=== PATIENT | male | born 1985 | race Caucasian/White ===

== ENCOUNTER 2024-01-07 08:47 | Outpatient (AMB) | payer MEDICAID, SELFPAY ==
--- NOTE | 2024-01-07 08:50 | A.OFFVIS_ITS ---
Intake Visit Reasons: circumcision consult Intake Note: Patient is present for CIRCUMCISION CONSULT Urology Medication:NONE Antibiotic Allergy:NONE Blood Thinner:NONE Buyer Required: No Allergies aspirin Allergy (Mild, Verified 01/07/24 08:58) Swelling lactose Allergy (Mild, Verified 01/07/24 08:58) Unknown penicillin G Allergy (Mild, Verified 01/07/24 08:58) RASH Medication List - Last Reconciled 01/07/24 by Mayank York MD atorvastatin 20 mg PO DAILY blood sugar diagnostic (FreeStyle Lite Strips) As directed empagliflozin (Jardiance) 25 mg PO DAILY lancets (FreeStyle Lancets) As directed lisinopril-hydrochlorothiazide 20-12.5 mg 1 tab PO DAILY metformin 1,000 mg PO BID sitagliptin phosphate (Januvia) 100 mg PO QAM HPI Comments Details: 01/07/2024--Luis is a 38-year-old gentleman past medical history PTSD, diabetes, here for evaluation due to recurrent balanitis. He was treated by his primary with an antifungal cream which helped. On exam foreskin with mild erythema able to be retracted without difficulty. 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 He states he is also interested in vasectomy. He states that he is and has 1 child. Vasectomy procedure was discussed at length with the patient. He was informed that vasectomy is a safe, permanent, and effective form of control but there are risks involved. It may involve risk of hematoma, procedure failure which is rare, sperm granuloma which may cause mild pain, and congestion which may cause sense of pressure and generally resolves after several weeks. Also discussed is the reported post vasectomy pain syndrome with chronic testicular pain which is uncommon <5% The patient was advised that it is necessary to use other types of control methods for > 12 weeks and until we send semen for analysis to make sure there is no more sperm in the semen. [facility] Medical History (Updated 01/07/24 @ 09:47 by Mayank York MD) Psychiatric illness Post traumatic stress disorder (PTSD) Injury Hypercholesteremia HTN (hypertension) Diabetes Class 1 obesity in adult Review of Systems Const All systems reviewed & are unremarkable except as noted in HPI and below Reports no additional complaints Eyes Reports no additional complaints ENT Reports no additional complaints Card Reports no additional complaints Resp Reports no additional complaints GI Reports no additional complaints Reports as per HPI Musc Reports no additional complaints Skin/Breast Reports system reviewed and no additional complaints, except as documented Neuro Reports no additional complaints Psych Reports no additional complaints Endo Reports no additional complaints Tim/Lymph Reports no additional complaints Aller/Immun Reports no additional complaints Physical Exam Const General: healthy appearing, no acute distress and well developed Orientation/consciousness: patient oriented x3 HEENT Head: Yes normocephalic and Yes atraumatic Eyes Conjunctivae: conjunctivae normal Neck Neck: Yes normal visual inspection Chest Chest palpation & inspection: normal inspection of the chest Resp Effort & Inspection: normal respiratory effort Cardio Rate: regular rate GI Inspection: Yes normal to inspection Palpation (GI): Soft to palpation Penis: uncircumcised Scrotum: scrotum normal Skin General skin exam: no rashes or lesions noted Neuro General: patient oriented x3 Extrem General: No pedal edema Psych Appearance: grossly normal Affect: normal affect Results AMB Urinalysis, Automated UA Leukoctes 0 Leif/uL Last Edit by MIGEL Harman on 01/07/24 09:11 UA Nitrite Negative Last Edit by MIGEL Harman on 01/07/24 09:11 UA Urobilinogen 0.2 mg/dL Last Edit by MIGEL Harman on 01/07/24 09:1 1 UA Protein 0 mg/dL Last Edit by MIGEL Harman on 01/07/24 09:11 UA pH 6.0 Last Edit by MIGEL Harman on 01/07/24 09:11 UA Blood 0 Jose Guadalupe/uL Last Edit by MIGEL Harman on 01/07/24 09:11 UA Specific [employer] 1.015 Last Edit by MIGEL Harman on 01/07/24 09: 11 UA Ketone Negative Last Edit by MIGEL Harman on 01/07/24 09:11 UA Bilirubin 0 mg/dL Last Edit by MIGEL Harman on 01/07/24 09:11 UA Glucose 1000 mg/dL Last Edit by MIGEL Harman on 01/07/24 09:11 Results Reviewed Results Reviewed: Laboratory Last Values Urine pH (Auto) 6.0 01/07/24 09:11 Specific [employer] (Auto) 1.015 01/07/24 09:11 Urine Protein (Auto) 0 mg/dL 01/07/24 09:11 Glucose (UA)(Auto) 1000 mg/dL 01/07/24 09:11 Urine Ketones (Auto) Negative 01/07/24 09:11 Urine Blood (Auto) 0 Jose Guadalupe/uL 01/07/24 09:11 Urine Nitrite (Auto) Negative 01/07/24 09:11 Urine Bilirubin (Auto) 0 mg/dL 01/07/24 09:11 Urine Urobilinogen (Auto) 0.2 mg/dL 01/07/24 09:11 Leukocyte Esterase (Auto) 0 Leif/uL 01/07/24 09:11 Assessment & Plan Assessment & Plan (1) Encounter for circumcision: Code(s): Z41.2 - Encounter for routine and ritual male circumcision Category: Medical (2) Diabetes: Code(s): E11.9 - Type 2 diabetes mellitus without complications Category: Medical (3) Balanitis: Code(s): N48.1 - Balanitis Category: Medical (4) Encounter for vasectomy counseling: Code(s): Z30.09 - Encounter for other general counseling and advice on contraception Category: Medical (5) Anxiety about health: Code(s): R45.89 - Other symptoms and signs involving emotional state Category: Medical Plan Plan circumcision and vasectomy as outpatient procedure. Preop labs listed below. Orders: Orders AMB Urinalysis Automated Today Z13.9 - Encounter for screening, unspecified Hemoglobin A1c Today E11.9 - Type 2 diabetes mellitus without complications, Z30.09 - Encounter for other general counseling and advice on contraception, Z41.2 - Encounter for routine and ritual male circumcision Glucose Fasting Today E11.9 - Type 2 diabetes mellitus without complications, Z30.09 - Encounter for other general counseling and advice on contraception, Z41.2 - Encounter for routine and ritual male circumcision Basic Metabolic Panel Fasting Today E11.9 - Type 2 diabetes mellitus without complications, Z30.09 - Encounter for other general counseling and advice on contraception, Z41.2 - Encounter for routine and ritual male circumcision Patient Instructions: The patient had an opportunity to ask questions regarding treatment plan. The patient expressed understanding and agreement with the above treatment plan. The patient is aware they should contact our office by phone for worsening of their current condition or the appearance of new symptoms. Compliance is encouraged with any medications and followup testing that is ordered. It is a privilege to be allowed the opportunity to participate in the urologic care of your patient. If you have any questions or concerns regarding treatment for the above conditions please do not hesitate to contact me. The office teleph one contact is [phone]. This note is constructed in part using voice recognition software. While every effort has been made to ensure accuracy geophysical prospecting surveyor errors may have been included. Yours sincerely, Mayank York MD Coding Level of Care Code New Pt Level 4 (98272) Diagnoses Encounter for circumcision Z41.2 Diabetes E11.9 Balanitis N48.1 Encounter for vasectomy counseling Z30.09 Anxiety about health R45.89
== END 2024-01-07 09:57 | disposition home or self-care (01) ==
PROVIDERS: PCP Student in an Organized Health Care Education/Training Program; Visit Provider Urology
DX: Z41.2 Encounter for routine and ritual male circumcision (principal); E11.9 Type 2 diabetes mellitus without complications; N48.1 Balanitis; Z30.09 Encounter for other general counseling and advice on contraception; R45.89 Other symptoms and signs involving emotional state; Z13.9 Encounter for screening, unspecified
CPT/HCPCS: 99204

== ENCOUNTER → 2024-01-07 08:47 | Outpatient (BNVA) | payer MEDICAID, SELFPAY | PROVIDERS: PCP Student in an Organized Health Care Education/Training Program; Visit Provider Urology | DX: Z30.09 Encounter for other general counseling and advice on contraception (principal); N48.1 Balanitis; E11.9 Type 2 diabetes mellitus without complications; R45.89 Other symptoms and signs involving emotional state | CPT/HCPCS: 81003; 99202 ==

== ENCOUNTER 2024-02-29 09:26 | Outpatient (REF) | payer MEDICAID, SELFPAY ==
--- OUTSIDE RECORDS SUMMARY | 2024-02-29 10:25 | XMS_ITS | Continuity of Care Document ---
Author Organization [place] - [facility], SATYA Smith PT Address [address] [place] [address] Assessment Encounter Date Assessment Date Assessment LastModified by Organization Details LastModified Time 02/14/2024 02/14/2024 Assessment: Pt lacks glute/hip strength, increased hip drop with dynamic running and jumping. Unable to complete single leg squat w/o UE support. Plan: Continue PT 2x/week for jumping, strengthening and stabilization program. [email or web address] Not available 02/17/2024 18:08:24 Plan of Treatment Reminders Order Date Submit Date Provider Last Modified By Organization Details Last Modified Time Details Appointments PT FOLLOW-U P 2024 04:00P M Damkelechiana Migueldge, BARREL MARKER Not available Not available Not available RECHECK 15 2024 01:00P M Bhanu Peter PA-C Not available Not available Not available PT FOLLOW-U P 2024 02:30P M Damieana Fudge, BARREL MARKER Not available Not available Not available PT FOLLOW-U P 2024 05:00P M Damieana Fudge, BARREL MARKER Not available Not available Not available PT FOLLOW-U P 2024 05:00P M Damieana Fudge, BARREL MARKER Not available Not available Not available PT FOLLOW-U P 2024 05:30P M Damieana Fudge, BARREL MARKER Not available Not available Not available PT FOLLOW-U P 2024 05:30P M Damieana Fudge, BARREL MARKER Not available Not available Not available PT ANY 30 2024 06:00P M Benedict Sainz DPT Not available Not available Not available PT FOLLOW-U P 2024 04:00P M Efren Riveradge, BARREL MARKER Not available Not available Not available PT FOLLOW-U P 2024 06:00P M Efren Riveradge, BARREL MARKER Not available Not available Not available PT FOLLOW-U P 2024 06:00P M Efren Fudge, BARREL MARKER Not available Not available Not available Lab None recorded . Referral None recorded . Procedures None recorded . Surgeries None recorded . Imaging None recorded . Medication Orders None recorded . Patient TargetsNo targets recorded. Patient InstructionsNo instructions recorded. Reason for Referral None Reported. Procedures Surgical History Date Name Laterality Status Provider Name and Address Organization Details Recorded Time 4 86058 Therapeutic Exercise (1:1) completed Efren Hinojosa, BARREL MARKER [address], [place], [address], [facility] 06/11/2023 05:36:49 4 89018 Therapeutic Exercise (1:1) completed Efren Hinojosa PTA [address], [place], [address], [facility] 06/07/2023 09:11:33 4 58060: Manual therapy completed Efren Hinojosa PTA [address], [place], [address], [facility] 06/07/2023 09:11:33 4 50043 Therapeutic Exercise (1:1) completed Benedict Sainz DPT [address], [place], [address], [facility] 05/31/2023 09:34:16 4 08331: Manual therapy completed Benedict Sainz DPT [address], [place], [address], [facility] 05/31/2023 09:34:16 4 18645 Therapeutic Exercise (1:1) completed Benedict Sainz DPT [address], [place], [address], [facility] 05/29/2023 14:47:53 4 76081: Manual therapy completed DORI FergusonT [address], [place], [address], [facility] 05/29/2023 14:47:49 4 98533 Therapeutic Exercise (1:1) completed Efren Hinojosa, BARREL MARKER [address], [place], [address], [facility] 05/24/2023 13:24:59 4 47458: Manual therapy completed Efren Hinjoosa BARREL MARKER [address], [place], [address], [facility] 05/24/2023 13:24:59 4 99024 Therapeutic Exercise (1:1) completed Efren Hinojosa BARREL MARKER [address], [place], [address], [facility] 05/24/2023 10:24:36 4 60361: Manual therapy completed Efren Hinojosa BARREL MARKER [address], [place], [address], [facility] 05/24/2023 10:24:36 4 09140 Therapeutic Exercise (1:1) completed Benedict Sainz DPT [address], [place], [address], [facility] 05/17/2023 16:31:18 4 95579: Manual therapy completed DORI FergusonT [address], [place], [address], [facility] 05/17/2023 16:31:10 4 95890 Therapeutic Exercise (1:1) completed DORI FergusonT [address], [place], [address], [facility] 05/16/2023 18:59:28 4 31285: Manual therapy completed DORI FergusonT [address], [place], [address], [facility] 05/16/2023 18:59:25 4 76577 Therapeutic Exercise (1:1) completed DORI FergusonT [address], [place], [address], [facility] 05/15/2023 18:44:31 4 25830 Therapeutic Exercise (1:1) completed Efren Hinojosa, BARREL MARKER [address], [place], [address], [facility] 05/10/2023 13:12:17 4 48591: Manual therapy completed Efren Hinojosa, BARREL MARKER [address], [place], [address], [facility] 05/10/2023 13:12:17 4 06471 Therapeutic Exercise (1:1) completed Efren Hinojosa, BARREL MARKER [address], [place], [address], [facility] 05/09/2023 07:18:26 4 27710: Manual therapy completed Efren Hinojosa, BARREL MARKER [address], [place], [address], [facility] 05/09/2023 07:18:26 4 61951 Therapeutic Exercise (1:1) completed Efren Hinojosa, BARREL MARKER [address], [place], [address], [facility] 05/06/2023 15:27:07 4 91631: Manual therapy completed Efren Hinojosa, BARREL MARKER [address], [place], [address], [facility] 05/06/2023 15:27:07 4 43032 Therapeutic Exercise (1:1) completed Hongshin Alistair, DPT [address], [place], [address], [facility] 05/01/2023 14:39:13 4 02165: Manual therapy completed Benedict Sainz DPT [address], [place], [address], [facility] 05/01/2023 14:39:13 4 46660 Therapeutic Exercise (1:1) completed Efren Hinojosa, BARREL MARKER [address], [place], [address], [facility] 04/26/2023 01:40:07 4 35774: Manual therapy completed Efren Hinojosa, BARREL MARKER [address], [place], [address], [facility] 04/26/2023 01:41:24 Imaging Results None recorded. Procedure Notes None recorded. Medical Equipment None Reported. Allergies Allergen ID Allergen Name Allergen Category Reaction Reaction Severity Criticality Documentation Date Start Date Code Code System Note Provider Name and Address Organization Details Recorded Time 561572 aspirin medicatio n Not available Not available Not available 05/22/2023 1191 RxNorm VJ BAZAN [facility] 4 13:09:04 805183 lactose food,medi cation Not available Not available Not available 05/22/2023 6211 RxNorm VJ BAZAN [facility] 4 13:09:13 159778 Medicinal product containin g penicilli n and acting as antibacte rial agent (product) medicatio n Not available Not available Not available 05/22/2023 88955 05 SNOMED VJ BAZAN [facility] 4 13:09:27 Medications Name Sig Start Date Stop Date Status Note LastModified by Organization Details LastModified Time atorvastatin 20 mg tablet TAKE 1 TABLET BY MOUTH DAILY active Not Available Not Available Not Available lisinopril 20 mg-hydrochlo rothiazide 12.5 mg tablet TAKE 1 TABLET BY MOUTH DAILY active Not Available Not Available Not Available diclofenac ER 100 mg tablet,exten ded release 24 hr TAKE 1 TABLET BY MOUTH EVERY DAY active Not Available Not Available No t Available FreeStyle Lancets 28 gauge USE DIRECTED DAILY active Not Available Not Available No t Available tramadol 50 mg tablet TAKE 1 TABLET BY MOUTH 4 TIMES A DAY NEEDED FOR PAIN DO NOT DRIVE WHILE ON active Not Available Not Available No t Available ketorolac 10 mg tablet TAKE 1 TABLET BY MOUTH THREE TIMES DAILY FOR 5 DAYS active Not Available Not Available N ot Available metformin 1,000 mg tablet TAKE 1 TABLET BY MOUTH TWICE DAILY WITH A MEAL active Not Available Not Available No t Available hydroxyzine HCl 25 mg tablet TAKE 1 TABLET BY MOUTH THREE TIMES DAILY NEEDED FOR SLEEP OR ANXIETY active Not Available Not Available N ot Available clotrimazole 1 % topical cream APPLY TOPICALLY TO THE AFFECTED AREA TWICE DAILY FOR 14 DAYS active Not Available Not Available No t Available oxycodone 5 mg tablet TAKE 1 TABLET BY MOUTH EVERY 4 TO 6 [address] NOT DRIVE WHILE TAKING active Not Available Not Available No t Available enoxaparin 40 mg/0.4 mL subcutaneous syringe DIRECTED INJECT 1 SYRINGE SUBCUTANEOU SLY DAILY FOR 14 DAYS DISPENSE 14 SYRINGES active Not Available Not Available No t Available Januvia 100 mg tablet TAKE 1 TABLET BY MOUTH EVERY MORNING active Not Available Not Available No t Available FreeStyle Lite Strips USE DIRECTED DAILY active Not Available Not Available No t Available melatonin 5 mg tablet TAKE 2 TABLETS BY MOUTH EVERY NIGHT AT BEDTIME active Not Available Not Available No t Available oxycodone HCl-oxycodon e-ASA 1 every 4 - 6 hours as needed DO NOT DRIVE WHILE ON THIS MEDICATION 2023 active Statu s: 'Curr ent'; Not Available Not Available Not Available Enoxaparin Sodium as directed 1 inj subq qd dispense #4 .4ml syringes 2023 active Statu s: 'Curr ent'; Not Available Not Available Not Available Jardiance 25 mg tablet TAKE 1 TABLET BY MOUTH DAILY active Not Available Not Available Not Available Synjardy 5 mg-1,000 mg tablet TAKE 1 TABLET BY MOUTH TWO TIMES A DAY WITH A MEAL active Not Available Not Available Not Available Vitals None Recorded Social History None recorded. Functional Status None recorded. Mental Status None recorded. Family History Nothing Reported. Medical History Condition Response Allergies/Hayfever N Coronary Artery Disease N Anxiety/Depression N Emphysema N Thyroid Problems N COPD N Pacemaker N Kidney/Bladder Problems N Anemia N Vascular Disease N Gastrointestinal Disease N Heart Attack ([place]) N Diabetes Y Autoimmune disease N Bleeding Disorder N Orthotics N Arthritis N Seizures/Epilepsy N Blood Clot N AIDS/HIV N Congestive Heart Failure (CHF) N Acid Reflux (GERD) N Cancer N Stroke N Asthma N Peripheral Vascular Disease N Sleep Apnea N Hepatitis N Heart Disease N Rheumatoid Arthritis N Arrhythmia N Pulmonary Embolism N Fibromyalgia N Hypertension Y Osteoporosis N Past Encounters Encounter ID Performer Location Encounter Start Date Encounter Closed Date Diagnosis/Indication Diagnosis SNOMED-CT Code Diagnosis ICD10 Code Diagnosis Note [id number] Benedict Sainz DPT [facility] [address] [place] [address] 01/14/2024 16:01:06 01/14/2024 17:00:41 Partial tear, knee, anterior cruciate ligament 884172605 S83.511A [id number] Benedict Sainz DPT [facility] [address] [place] [address] 01/16/2024 16:02:03 01/16/2024 17:41:05 Partial tear, knee, anterior cruciate ligament [id number] S83.511A [id number] Benedict Sainz DPT [facility] [address] [place] [address] 01/22/2024 09:57:34 01/22/2024 10:48:44 Partial tear, knee, anterior cruciate ligament [id number] S83.511A [id number] Benedict Sainz DPT [facility] [address] [place] [address] 01/24/2024 15:30:54 01/24/2024 16:15:49 Partial tear, knee, anterior cruciate ligament [id number] S83.511A [id number] Oni Stovall, PT [facility] [address] [place] [address] 01/30/2024 15:55:06 01/30/2024 17:02:35 Partial tear, knee, anterior cruciate ligament [id number] S83.511A [id number] Harvey Urrutia MD [facility] [address] [place] [address] 01/31/2024 13:17:10 02/21/2024 13:55:48 Complete tear, knee, anterior cruciate ligament [id number] S83.511D [id number] Oni Stovall, PT [facility] [address] [place] [address] 02/01/2024 15:22:40 02/01/2024 16:15:40 Partial tear, knee, anterior cruciate ligament [id number] S83.511A [id number] Oni Stovall, PT [facility] [address] [place] [address] 02/07/2024 11:26:12 02/07/2024 12:23:40 Partial tear, knee, anterior cruciate ligament [id number] S83.511A [id number] Oni Stovall, PT [facility] [address] [place] [address] 02/14/2024 16:56:41 02/14/2024 17:25:50 Partial tear, knee, anterior cruciate ligament [id number] S83.511A Health Concerns Section Related Observation LastModified by Organization Detai ls LastModified Time None Recorded Concern Status LastModified by Organization Details LastModified Time None Recorded Payers None recorded. Notes Date Note Type Note Provider Name and Address Organization Details Recorded Time 02/14/2024 text/html Patient reports no pain at rest, has been doing exercises at home but still feels weak in R leg. Efren Hinojosa, BARREL MARKER [address], [place], [address], [facility] 02/17/2024 18:09:41
--- OUTSIDE RECORDS SUMMARY | 2024-02-29 10:26 | XMS_ITS | Continuity of Care Document ---
Author Organization [facility], Luis PT Address [address] [place] [address] Assessment Encounter Date Assessment Date Assessment LastModified by Organization Details LastModified Time 02/07/2024 02/07/2024 Assessment: Pt lacks glute/hip strength, increased hip drop with dynamic running and jumping. Plan: Continue PT 2x/week for jumping, strengthening and stabilization program. [email or web address] Not available 02/07/2024 18:48:43 Plan of Treatment Reminders Order Date Submit Date Provider Last Modified By Organization Details Last Modified Time Details Appointments PT FOLLOW-U P 2024 04:00P M Damieana Fudge, CARTON LETTERING MACHINE OPERATOR Not available Not available Not available RECHECK 15 2024 01:00P M Bhanu Peter PA-C Not available Not available Not available PT FOLLOW-U P 2024 02:30P M Damieana Fudge, CARTON LETTERING MACHINE OPERATOR Not available Not available Not available PT FOLLOW-U P 2024 05:00P M Damieana Fudge, CARTON LETTERING MACHINE OPERATOR Not available Not available Not available PT FOLLOW-U P 2024 05:00P M Damieana Fudge, CARTON LETTERING MACHINE OPERATOR Not available Not available Not available PT FOLLOW-U P 2024 05:30P M Damieana Fudge, CARTON LETTERING MACHINE OPERATOR Not available Not available Not available PT FOLLOW-U P 2024 05:30P M Damieana Fudge, CARTON LETTERING MACHINE OPERATOR Not available Not available Not available PT ANY 30 2024 06:00P M Benedict Sainz DPT Not available Not available Not available PT FOLLOW-U P 2024 04:00P M Damieana Fudge, CARTON LETTERING MACHINE OPERATOR Not available Not available Not available PT FOLLOW-U P 2024 06:00P M Efren Riveradge, CARTON LETTERING MACHINE OPERATOR Not available Not available Not available PT FOLLOW-U P 2024 06:00P M Efren Riveradge, CARTON LETTERING MACHINE OPERATOR Not available Not available Not available Lab None recorded . Referral None recorded . Procedures None recorded . Surgeries None recorded . Imaging None recorded . Medication Orders None recorded . Patient TargetsNo targets recorded. Patient InstructionsNo instructions recorded. Reason for Referral None Reported. Procedures Surgical History Date Name Laterality Status Provider Name and Address Organization Details Recorded Time 4 32614 Therapeutic Exercise (1:1) completed Efren Hinojosa, CARTON LETTERING MACHINE OPERATOR [address], [place], [address], [facility] 06/11/2023 05:36:49 4 78908 Therapeutic Exercise (1:1) completed Efren Hinojosa, CARTON LETTERING MACHINE OPERATOR [address], [place], [address], [facility] 06/07/2023 09:11:33 4 02867: Manual therapy completed Efren Hinojosa, CARTON LETTERING MACHINE OPERATOR [address], [place], [address], [facility] 06/07/2023 09:11:33 4 68055 Therapeutic Exercise (1:1) completed DORI FergusonT [address], [place], [address], [facility] 05/31/2023 09:34:16 4 66979: Manual therapy completed Benedict Sainz DPT [address], [place], [address], [facility] 05/31/2023 09:34:16 4 89609 Therapeutic Exercise (1:1) completed DORI FergusonT [address], [place], [address], [facility] 05/29/2023 14:47:53 4 76159: Manual therapy completed DORI FergusonT [address], [place], [address], [facility] 05/29/2023 14:47:49 4 79872 Therapeutic Exercise (1:1) completed Efren Hinojosa, CARTON LETTERING MACHINE OPERATOR [address], [place], [address], [facility] 05/24/2023 13:24:59 4 80923: Manual therapy completed Efren Hinojosa, CARTON LETTERING MACHINE OPERATOR [address], [place], [address], [facility] 05/24/2023 13:24:59 4 21603 Therapeutic Exercise (1:1) completed Efren Hinojosa, CARTON LETTERING MACHINE OPERATOR [address], [place], [address], [facility] 05/24/2023 10:24:36 4 39089: Manual therapy completed Efren Hinojosa, CARTON LETTERING MACHINE OPERATOR [address], [place], [address], [facility] 05/24/2023 10:24:36 4 59194 Therapeutic Exercise (1:1) completed DORI FergusonT [address], [place], [address], [facility] 05/17/2023 16:31:18 4 01524: Manual therapy completed DORI FergusonT [address], [place], [address], [facility] 05/17/2023 16:31:10 4 85821 Therapeutic Exercise (1:1) completed DORI FergusonT [address], [place], [address], [facility] 05/16/2023 18:59:28 4 37988: Manual therapy completed DORI FergusonT [address], [place], [address], [facility] 05/16/2023 18:59:25 4 58916 Therapeutic Exercise (1:1) completed Benedict Sainz DPT [address], [place], [address], [facility] 05/15/2023 18:44:31 4 96162 Therapeutic Exercise (1:1) completed Efren Hinojosa, CARTON LETTERING MACHINE OPERATOR [address], [place], [address], [facility] 05/10/2023 13:12:17 4 82295: Manual therapy completed Efren Hinojosa, CARTON LETTERING MACHINE OPERATOR [address], [place], [address], [facility] 05/10/2023 13:12:17 4 15018 Therapeutic Exercise (1:1) completed Efren Hinojosa, CARTON LETTERING MACHINE OPERATOR [address], [place], [address], [facility] 05/09/2023 07:18:26 4 41818: Manual therapy completed Efren Hinojosa, CARTON LETTERING MACHINE OPERATOR [address], [place], [address], [facility] 05/09/2023 07:18:26 4 71147 Therapeutic Exercise (1:1) completed Efren Hinojosa, CARTON LETTERING MACHINE OPERATOR [address], [place], [address], [facility] 05/06/2023 15:27:07 4 74017: Manual therapy completed Efren Hinojosa, CARTON LETTERING MACHINE OPERATOR [address], [place], [address], [facility] 05/06/2023 15:27:07 4 69921 Therapeutic Exercise (1:1) completed Benedict Sainz DPT [address], [place], [address], [facility] 05/01/2023 14:39:13 4 29086: Manual therapy completed Benedict Sainz DPT [address], [place], [address], [facility] 05/01/2023 14:39:13 4 51347 Therapeutic Exercise (1:1) completed Efren Hinojosa, CARTON LETTERING MACHINE OPERATOR [address], [place], [address], [facility] 04/26/2023 01:40:07 4 86482: Manual therapy completed Efren Hinojosa, CARTON LETTERING MACHINE OPERATOR [address], [place], [address], [facility] 04/26/2023 01:41:24 Imaging Results None recorded. Procedure Notes None recorded. Medical Equipment None Reported. Allergies Allergen ID Allergen Name Allergen Category Reaction Reaction Severity Criticality Documentation Date Start Date Code Code System Note Provider Name and Address Organization Details Recorded Time 505620 aspirin medicatio n Not available Not available Not available 05/22/2023 1191 RxNorm VJ BAZAN [facility] 4 13:09:04 588636 lactose food,medi cation Not available Not available Not available 05/22/2023 6211 RxNorm VJ BAZAN [facility] 4 13:09:13 612575 Medicinal product containin g penicilli n and acting as antibacte rial agent (product) medicatio n Not available Not available Not available 05/22/2023 43604 05 SNOMED VJ BENI [facility] 4 13:09:27 Medications Name Sig Start [...] Thyroid Problems N COPD N Pacemaker N Anemia N Kidney/Bladder Problems N Vascular Disease N Heart Attack ([place]) N Gastrointestinal Disease N Diabetes Y Autoimmune disease N Bleeding [...] SNOMED-CT Code Diagnosis ICD10 Code Diagnosis Note Oni Stovall, PT [facility] [address] [place] [address] 01/08/2024 14:58:47 01/08/2024 16:03:23 Partial tear, knee, anterior cruciate ligament [id number] S83.511A [id number] Benedict Sainz DPT [facility] [address] [place] [address] 01/14/2024 16:01:06 01/14/2024 17:00:41 Partial tear, knee, anterior cruciate ligament 784784188 S83.511A [id number] Benedict Sainz DPT [facility] [address] [place] [address] 01/16/2024 16:02:03 01/16/2024 17:41:05 Partial tear, knee, anterior cruciate ligament 376254468 S83.511A [id number] Benedict Sainz DPT [facility] [address] [place] [address] 01/22/2024 09:57:34 01/22/2024 10:48:44 Partial tear, knee, anterior cruciate ligament 409105934 S83.511A [id number] Benedict Sainz DPT [facility] [address] [place] [address] 01/24/2024 15:30:54 01/24/2024 16:15:49 Partial tear, knee, anterior cruciate ligament 120926409 S83.511A [id number] Oni Stovall, PT [facility] [address] [place] [address] 01/30/2024 15:55:06 01/30/2024 17:02:35 Partial tear, knee, anterior cruciate ligament 562622912 S83.511A [id number] MD Luis Alegria [address] floor [address] [place] [address] 01/31/2024 13:17:10 02/21/2024 13:55:48 Complete tear, knee, anterior cruciate ligament 644151141 S83.511D [id number] Oni Stovall, PT [facility] [address] [place] [address] 02/01/2024 15:22:40 02/01/2024 16:15:40 Partial tear, knee, anterior cruciate ligament 673302107 S83.511A [id number] LAK[facility] [address] [place] [address] 02/07/2024 11:26:12 02/07/2024 12:23:40 Partial tear, knee, anterior cruciate ligament 108489595 S83.511A Health Concerns Section Related Observation LastModified by Organization Detai ls LastModified Time None Recorded Concern Status LastModified by Organization Details LastModified Time None Recorded Payers Encounter Date Sequence Insurance Name Policy Number Policy Cee Covered Member ID Cee Member ID Guarantor Name 02/07/2024 [employer] [facility] Luis Caal Notes Date Note Type Note Provider Name and Address Organization Details Recorded Time 02/07/2024 text/html Patient reports no pain at rest, doing well. Efren Hinojosa, CARTON LETTERING MACHINE OPERATOR [address], [place], [address], [facility] 02/07/2024 18:49:09
--- OUTSIDE RECORDS SUMMARY | 2024-02-29 10:26 | XMS_ITS | Continuity of Care Document ---
Author Organization [facility] Address [address] [place] [address] Assessment Encounter Date Assessment Date Assessment LastModified by Organization Details LastModified Time 01/22/2024 01/22/2024 Assessment: Reviewed exercises with proper body mechanics for the gym. Pt continues to demonstrate asymmetry strength in quad and hip muscles. Plan: Continue PT 2x/week for jumping, strengthening and stabilization program. [email or web address] Not available 01/22/2024 12:51:00 Plan of Treatment Reminders Order Date Submit Date Provider Last Modified By Organization Details Last Modified Time Details Appointments PT FOLLOW-U P 2024 04:00P M Damieana Fudge, SEASONAL SALES ASSOCIATE Not available Not available Not available RECHECK 15 2024 01:00P M Bhanu Peter PA-C Not available Not available Not available PT FOLLOW-U P 2024 02:30P M Damieana Fudge, SEASONAL SALES ASSOCIATE Not available Not available Not available PT FOLLOW-U P 2024 05:00P M Damieana Fudge, SEASONAL SALES ASSOCIATE Not available Not available Not available PT FOLLOW-U P 2024 05:00P M Damieana Fudge, SEASONAL SALES ASSOCIATE Not available Not available Not available PT FOLLOW-U P 2024 05:30P M Damieana Fudge, SEASONAL SALES ASSOCIATE Not available Not available Not available PT FOLLOW-U P 2024 05:30P M Damieana Fudge, SEASONAL SALES ASSOCIATE Not available Not available Not available PT ANY 30 2024 06:00P M DORI FergusonT Not available Not available Not available PT FOLLOW-U P 2024 04:00P M Damieana Fudge, SEASONAL SALES ASSOCIATE Not available Not available Not available PT FOLLOW-U P 2024 06:00P M Efren Riveradge, SEASONAL SALES ASSOCIATE Not available Not available Not available PT FOLLOW-U P 2024 06:00P M Efren Riveradge, SEASONAL SALES ASSOCIATE Not available Not available Not available Lab None recorded . Referral None recorded . Procedures None recorded . Surgeries None recorded . Imaging None recorded . Medication Orders None recorded . Patient TargetsNo targets recorded. Patient InstructionsNo instructions recorded. Reason for Referral None Reported. Procedures Surgical History Date Name Laterality Status Provider Name and Address Organization Details Recorded Time 4 98209 Therapeutic Exercise (1:1) completed Efren Hinojosa, SEASONAL SALES ASSOCIATE [address], [place], [address], [facility] 06/11/2023 05:36:49 4 01392 Therapeutic Exercise (1:1) completed Efren Hinojosa, SEASONAL SALES ASSOCIATE [address], [place], [address], [facility] 06/07/2023 09:11:33 4 31163: Manual therapy completed Efren Hinojosa, SEASONAL SALES ASSOCIATE [address], [place], [address], [facility] 06/07/2023 09:11:33 4 76200 Therapeutic Exercise (1:1) completed Benedict Sainz DPT [address], [place], [address], [facility] 05/31/2023 09:34:16 4 77135: Manual therapy completed DORI FergusonT [address], [place], [address], [facility] 05/31/2023 09:34:16 4 02012 Therapeutic Exercise (1:1) completed DORI FergusonT [address], [place], [address], [facility] 05/29/2023 14:47:53 4 41569: Manual therapy completed DORI FergusonT [address], [place], [address], [facility] 05/29/2023 14:47:49 4 44514 Therapeutic Exercise (1:1) completed Efren Hinojosa, SEASONAL SALES ASSOCIATE [address], [place], [address], [facility] 05/24/2023 13:24:59 4 37448: Manual therapy completed Efren Hinojosa, SEASONAL SALES ASSOCIATE [address], [place], [address], [facility] 05/24/2023 13:24:59 4 28749 Therapeutic Exercise (1:1) completed Efren Hinojosa, SEASONAL SALES ASSOCIATE [address], [place], [address], [facility] 05/24/2023 10:24:36 4 14551: Manual therapy completed Efren Hinojosa, SEASONAL SALES ASSOCIATE [address], [place], [address], [facility] 05/24/2023 10:24:36 4 37581 Therapeutic Exercise (1:1) completed DORI FergusonT [address], [place], [address], [facility] 05/17/2023 16:31:18 4 53428: Manual therapy completed DORI FergusonT [address], [place], [address], [facility] 05/17/2023 16:31:10 4 39759 Therapeutic Exercise (1:1) completed DORI FergusonT [address], [place], [address], [facility] 05/16/2023 18:59:28 4 74332: Manual therapy completed DORI FergusonT [address], [place], [address], [facility] 05/16/2023 18:59:25 4 03813 Therapeutic Exercise (1:1) completed Benedict Sainz DPT [address], [place], [address], [facility] 05/15/2023 18:44:31 4 74604 Therapeutic Exercise (1:1) completed Efren Hinojosa, SEASONAL SALES ASSOCIATE [address], [place], [address], [facility] 05/10/2023 13:12:17 4 31029: Manual therapy completed Efren Hinojosa, SEASONAL SALES ASSOCIATE [address], [place], [address], [facility] 05/10/2023 13:12:17 4 59169 Therapeutic Exercise (1:1) completed Efren Hinojosa, SEASONAL SALES ASSOCIATE [address], [place], [address], [facility] 05/09/2023 07:18:26 4 43590: Manual therapy completed Efren Hinojosa, SEASONAL SALES ASSOCIATE [address], [place], [address], [facility] 05/09/2023 07:18:26 4 69324 Therapeutic Exercise (1:1) completed Efren Hinojosa, SEASONAL SALES ASSOCIATE [address], [place], [address], [facility] 05/06/2023 15:27:07 4 25055: Manual therapy completed Efren Hinojosa, SEASONAL SALES ASSOCIATE [address], [place], [address], [facility] 05/06/2023 15:27:07 4 50664 Therapeutic Exercise (1:1) completed Benedict Sainz DPT [address], [place], [address], [facility] 05/01/2023 14:39:13 4 37706: Manual therapy completed Benedict Sainz DPT [address], [place], [address], [facility] 05/01/2023 14:39:13 4 75733 Therapeutic Exercise (1:1) completed Efren Hinojosa, SEASONAL SALES ASSOCIATE [address], [place], [address], [facility] 04/26/2023 01:40:07 4 87376: Manual therapy completed Erfen Hinojosa, SEASONAL SALES ASSOCIATE [address], [place], [address], [facility] 04/26/2023 01:41:24 Imaging Results None recorded. Procedure Notes None recorded. Medical Equipment None Reported. Allergies Allergen ID Allergen Name Allergen Category Reaction Reaction Severity Criticality Documentation Date Start Date Code Code System Note Provider Name and Address Organization Details Recorded Time 879116 aspirin medicatio n Not available Not available Not available 05/22/2023 1191 RxNorm VJ BAZAN [facility] 4 13:09:04 103831 lactose food,medi cation Not available Not available Not available 05/22/2023 6211 RxNorm VJ BAZAN [facility] 4 13:09:13 343050 Medicinal product containin g penicilli n and acting as antibacte rial agent (product) medicatio n Not available Not available Not available 05/22/2023 61505 05 SNOMED VJ BAZAN [facility] 4 13:09:27 Medications Name Sig Start [...] History Nothing Reported. Medical History Condition Response Coronary Artery Disease N Anxiety/Depression N Emphysema N COPD N Pacemaker N Vascular Disease N Gastrointestinal Disease N Autoimmune disease N Orthotics N Arthritis N Blood Clot N Acid Reflux (GERD) N Cancer N Stroke N Rheumatoid Arthritis N Arrhythmia N Fibromyalgia N Allergies/Hayfever N Thyroid Problems N Kidney/Bladder Problems N Anemia N Heart Attack ([place]) N Diabetes Y Bleeding Disorder N Seizures/Epilepsy N AIDS/HIV N Congestive Heart Failure (CHF) N Asthma N Peripheral Vascular Disease N Sleep Apnea N Hepatitis N Heart Disease N Pulmonary Embolism N Hypertension Y Osteoporosis N Past Encounters Encounter ID Performer Location Encounter Start Date Encounter Closed Date Diagnosis/Indication Diagnosis SNOMED-CT Code Diagnosis ICD10 Code Diagnosis Note [id number] Benedict Sainz DPT [facility] [address] [place] [address] 12/24/2023 15:24:27 12/24/2023 16:02:58 Partial tear, knee, anterior cruciate ligament 222368251 S83.511A [id number] Benedict Sainz DPT [facility] [address] [place] [address] 12/27/2023 14:57:15 12/27/2023 15:51:28 Partial tear, knee, anterior cruciate ligament 552328645 S83.511A [id number] Benedict Sainz DPT [facility] [address] [place] [address] 01/01/2024 15:56:48 01/01/2024 16:42:05 Partial tear, knee, anterior cruciate ligament 289622602 S83.511A [id number] Benedict Sainz DPT [facility] [address] [place] [address] 01/03/2024 16:39:18 01/03/2024 17:28:40 Partial tear, knee, anterior cruciate ligament 225956711 S83.511A [id number] Oni Stovall, PT [facility] [address] [place] [address] 01/08/2024 14:58:47 01/08/2024 16:03:23 Partial tear, knee, anterior cruciate ligament 130278741 S83.511A [id number] Benedict Sainz DPT [facility] [address] [place] [address] 01/14/2024 16:01:06 01/14/2024 17:00:41 Partial tear, knee, anterior cruciate ligament 754853150 S83.511A [id number] Benedict Sainz DPT [facility] [address] [place] [address] 01/16/2024 16:02:03 01/16/2024 17:41:05 Partial tear, knee, anterior cruciate ligament 658584625 S83.511A [id number] [facility] [address] [place] [address] 01/22/2024 09:57:34 01/22/2024 10:48:44 Partial tear, knee, anterior cruciate ligament 552006969 S83.511A Health Concerns Section Related Observation LastModified by Organization Detai ls LastModified Time None Recorded Concern Status LastModified by Organization Details LastModified Time None Recorded Payers None recorded. Notes Date Note Type Note Provider Name and Address Organization Details Recorded Time 01/22/2024 text/html Pt reports he go es to the gym for strengthening exercises.Pains 0/10 at rest. Benedict Sainz DPT [address], [place], [address], [facility] 01/22/2024 12:52:45
--- OUTSIDE RECORDS SUMMARY | 2024-02-29 10:27 | XMS_ITS | Continuity of Care Document ---
Author Organization [place] - [facility], [facility] PT Address [address] [place] [address] Assessment Encounter Date Assessment Date Assessment LastModified by Organization Details LastModified Time 12/20/2023 12/20/2023 Assessment: Pt demonstrates gradual improving LE strength and SL jumping and running but quick fatigues after exercises. Denies increased pain or instability at the end of the session. Px noted in L LE. Plan: Continue PT 2x/week for jumping, strengthening and stabilization program. Recheck with MD on 12/20/23. [email or web address] Not available 12/23/2023 13:30:13 Plan of Treatment Reminders Order Date Submit Date Provider Last Modified By Organization Details Last Modified Time Details Appointments PT FOLLOW-U P 2024 04:00P M Efren Paredese, CUSTOM SHOP WORKER Not available Not available Not available RECHECK 15 2024 01:00P M Bhanu Peter PA-C Not available Not available Not available PT FOLLOW-U P 2024 02:30P M Dammartha Fudge, CUSTOM SHOP WORKER Not available Not available Not available PT FOLLOW-U P 2024 05:00P M Damieana Fudge, CUSTOM SHOP WORKER Not available Not available Not available PT FOLLOW-U P 2024 05:00P M Damkelechiana Fudge, CUSTOM SHOP WORKER Not available Not available Not available PT FOLLOW-U P 2024 05:30P M Damieana Fudge, CUSTOM SHOP WORKER Not available Not available Not available PT FOLLOW-U P 2024 05:30P M Damkelechiana Fudge, CUSTOM SHOP WORKER Not available Not available Not available PT ANY 30 2024 06:00P M Hongshin Alistair, DPT Not available Not available Not available PT FOLLOW-U P 2024 04:00P M Efren Riverasimrandaria, CUSTOM SHOP WORKER Not available Not available Not available PT FOLLOW-U P 2024 06:00P M Efren Riveradge, CUSTOM SHOP WORKER Not available Not available Not available PT FOLLOW-U P 2024 06:00P M Efren Riveradge, CUSTOM SHOP WORKER Not available Not available Not available Lab None recorded . Referral None recorded . Procedures None recorded . Surgeries None recorded . Imaging None recorded . Medication Orders None recorded . Patient TargetsNo targets recorded. Patient InstructionsNo instructions recorded. Reason for Referral None Reported. Procedures Surgical History Date Name Laterality Status Provider Name and Address Organization Details Recorded Time 4 84412 Therapeutic Exercise (1:1) completed Efren Hinojosa, CUSTOM SHOP WORKER [address], [place], [address], [facility] 06/11/2023 05:36:49 4 40404 Therapeutic Exercise (1:1) completed Efren Hinojosa, CUSTOM SHOP WORKER [address], [place], [address], [facility] 06/07/2023 09:11:33 4 84786: Manual therapy completed Efren Hinojosa, CUSTOM SHOP WORKER [address], [place], [address], [facility] 06/07/2023 09:11:33 4 81969 Therapeutic Exercise (1:1) completed Benedict Sainz DPT [address], [place], [address], [facility] 05/31/2023 09:34:16 4 78174: Manual therapy completed DORI FergusonT [address], [place], [address], [facility] 05/31/2023 09:34:16 4 90179 Therapeutic Exercise (1:1) completed DORI FergusonT [address], [place], [address], [facility] 05/29/2023 14:47:53 4 26331: Manual therapy completed Benedict Sainz DPT [address], [place], [address], [facility] 05/29/2023 14:47:49 4 21267 Therapeutic Exercise (1:1) completed Efren Hinojosa CUSTOM SHOP WORKER [address], [place], [address], [facility] 05/24/2023 13:24:59 4 27562: Manual therapy completed Efren Hinojosa CUSTOM SHOP WORKER [address], [place], [address], [facility] 05/24/2023 13:24:59 4 61373 Therapeutic Exercise (1:1) completed Efren Hinojosa CUSTOM SHOP WORKER [address], [place], [address], [facility] 05/24/2023 10:24:36 4 75418: Manual therapy completed Efren Hinojosa PTA [address], [place], [address], [facility] 05/24/2023 10:24:36 4 36077 Therapeutic Exercise (1:1) completed Benedict Sainz DPT [address], [place], [address], [facility] 05/17/2023 16:31:18 4 80255: Manual therapy completed Benedict Sainz DPT [address], [place], [address], [facility] 05/17/2023 16:31:10 4 68748 Therapeutic Exercise (1:1) completed Benedict Sainz DPT [address], [place], [address], [facility] 05/16/2023 18:59:28 4 92142: Manual therapy completed DORI FergusonT [address], [place], [address], [facility] 05/16/2023 18:59:25 4 83171 Therapeutic Exercise (1:1) completed DORI FergusonT [address], [place], [address], [facility] 05/15/2023 18:44:31 4 11257 Therapeutic Exercise (1:1) completed Efren Hinojosa, CUSTOM SHOP WORKER [address], [place], [address], [facility] 05/10/2023 13:12:17 4 51273: Manual therapy completed Efren Hinojosa, CUSTOM SHOP WORKER [address], [place], [address], [facility] 05/10/2023 13:12:17 4 35153 Therapeutic Exercise (1:1) completed Efren Hinojosa, CUSTOM SHOP WORKER [address], [place], [address], [facility] 05/09/2023 07:18:26 4 52716: Manual therapy completed Efren Hinojosa, CUSTOM SHOP WORKER [address], [place], [address], [facility] 05/09/2023 07:18:26 4 23388 Therapeutic Exercise (1:1) completed Efren Hinojosa, CUSTOM SHOP WORKER [address], [place], [address], [facility] 05/06/2023 15:27:07 4 35893: Manual therapy completed Efren Hinojosa, CUSTOM SHOP WORKER [address], [place], [address], [facility] 05/06/2023 15:27:07 4 96847 Therapeutic Exercise (1:1) completed Benedict Sainz, DPT [address], [place], [address], [facility] 05/01/2023 14:39:13 4 63006: Manual therapy completed Benedict Sainz DPT [address], [place], [address], [facility] 05/01/2023 14:39:13 4 58410 Therapeutic Exercise (1:1) completed Efren Hinojosa, CUSTOM SHOP WORKER [address], [place], [address], [facility] 04/26/2023 01:40:07 4 72298: Manual therapy completed Efren Hinojosa, CUSTOM SHOP WORKER [address], [place], [address], [facility] 04/26/2023 01:41:24 Imaging Results None recorded. Procedure Notes None recorded. Medical Equipment None Reported. Allergies Allergen ID Allergen Name Allergen Category Reaction Reaction Severity Criticality Documentation Date Start Date Code Code System Note Provider Name and Address Organization Details Recorded Time 377764 aspirin medicatio n Not available Not available Not available 05/22/2023 1191 RxNorm VJ ARMASDEN [facility] 4 13:09:04 165116 lactose food,medi cation Not available Not available Not available 05/22/2023 6211 RxNorm VJ BAZAN [facility] 4 13:09:13 211882 Medicinal product containin g penicilli n and acting as antibacte rial agent (product) medicatio n Not available Not available Not available 05/22/2023 96389 05 SNOMED VJ BENI [facility] 4 13:09:27 Medications Name Sig Start [...] Not Available Not Available Not Available Vitals Date Recorded Body height Body mass index (BMI) Body weight Provider Name and Address Organization Details Last Updated DateTime 12/20/2023 167.64 cm 30.7 kg/m2 08674.55 g VJ BENI [facility] 12/20/2023 15:23:39 Social History None recorded. Functional Status None recorded. Mental Status None recorded. Family History Nothing Reported. Medical History Condition Response Allergies/Hayfever N Coronary Artery Disease N Anxiety/Depression N Emphysema N Thyroid Problems N COPD N Pacemaker N Anemia N Kidney/Bladder Problems N Vascular Disease N Heart Attack ([place]) N Gastrointestinal Disease N Diabetes Y Autoimmune [...] SNOMED-CT Code Diagnosis ICD10 Code Diagnosis Note [id number] Benedict Sainz DPT [facility] [address] [place] [address] 11/22/2023 15:23:34 11/22/2023 16:14:54 Partial tear, knee, anterior cruciate ligament 704787046 S83.511A [id number] Oni Stovall, PT [facility] [address] [place] [address] 11/27/2023 15:27:28 11/27/2023 16:41:45 Partial tear, knee, anterior cruciate ligament 975474906 S83.511A [id number] Oni Stovall, PT [facility] [address] [place] [address] 11/29/2023 12:17:19 11/29/2023 14:21:56 Partial tear, knee, anterior cruciate ligament 913713323 S83.511A [id number] Benedict Sainz DPT [facility] [address] [place] [address] 12/03/2023 15:31:38 12/03/2023 16:19:31 Partial tear, knee, anterior cruciate ligament 027313235 S83.511A [id number] Benedict Sainz DPT [facility] [address] [place] [address] 12/05/2023 15:24:44 12/05/2023 17:17:04 Partial tear, knee, anterior cruciate ligament 670130607 S83.511A [id number] Benedict Sainz, DPT [facility] [address] [place] [address] 12/10/2023 15:27:00 12/10/2023 16:18:44 Partial tear, knee, anterior cruciate ligament 719321166 S83.511A [id number] Oni Trinidadek, PT [facility] [address] [place] [address] 12/12/2023 15:33:43 12/12/2023 17:25:02 Partial tear, knee, anterior cruciate ligament 514430727 S83.511A [id number] Benedict Sainz, DPT [facility] [address] [place] [address] 12/18/2023 15:17:59 12/18/2023 16:27:34 Partial tear, knee, anterior cruciate ligament 289920535 S83.511A [id number] Oni Trinidadsara, PT [facility] [address] [place] [address] 12/20/2023 12:27:40 12/20/2023 13:13:16 Partial tear, knee, anterior cruciate ligament 063186987 S83.511A [id number] Harvey Urrutia MD [facility] [address] [place] [address] 12/20/2023 14:51:11 01/17/2024 09:22:49 Complete tear, knee, anterior cruciate ligament 623855307 S83.511D Health Concerns Section Related Observation LastModified by Organization Detai ls LastModified Time None Recorded Concern Status LastModified by Organization Details LastModified Time None Recorded Payers Encounter Date Sequence Insurance Name Policy Number Policy Cee Covered Member ID Cee Member ID Guarantor Name 12/20/2023 [employer] Luis Caal Notes Date Note Type Note Provider Name and Address Organization Details Recorded Time 12/20/2023 text/html Patient reports his knee feels good today.Pains 0/10 at rest Efren Hinojosa, CUSTOM SHOP WORKER [address], [place], [address], [facility] 12/23/2023 13:30:29
--- OUTSIDE RECORDS SUMMARY | 2024-02-29 10:27 | XMS_ITS | Continuity of Care Document ---
Author Organization [facility], Alexusdaria PT Address [address] [place] [address] Assessment Encounter Date Assessment Date Assessment LastModified by Organization Details LastModified Time 12/18/2023 12/18/2023 Assessment: Pt demonstrates gradual improving LE strength and SL jumping and running but quick fatigues after exercises. Denies increased pain or instability at the end of the session. Plan: Continue PT 2x/week for jumping, strengthening and stabilization program. Recheck with MD on 12/20/23. [email or web address] Not available 12/18/2023 17:12:59 Plan of Treatment Reminders Order Date Submit Date Provider Last Modified By Organization Details Last Modified Time Details Appointments PT FOLLOW-U P 2024 04:00P M Damkelechiana Migueldge, FUND DEVELOPMENT MANAGER Not available Not available Not available RECHECK 15 2024 01:00P M Bhanu Peter PA-C Not available Not available Not available PT FOLLOW-U P 2024 02:30P M Damieana Fudge, FUND DEVELOPMENT MANAGER Not available Not available Not available PT FOLLOW-U P 2024 05:00P M Damieana Fudge, FUND DEVELOPMENT MANAGER Not available Not available Not available PT FOLLOW-U P 2024 05:00P M Damieana Fudge, FUND DEVELOPMENT MANAGER Not available Not available Not available PT FOLLOW-U P 2024 05:30P M Damieana Fudge, FUND DEVELOPMENT MANAGER Not available Not available Not available PT FOLLOW-U P 2024 05:30P M Damieana Fudge, FUND DEVELOPMENT MANAGER Not available Not available Not available PT ANY 30 2024 06:00P M Hongshin Alistair, DPT Not available Not available Not available PT FOLLOW-U P 2024 04:00P M Efren Riveradge, FUND DEVELOPMENT MANAGER Not available Not available Not available PT FOLLOW-U P 2024 06:00P M Efren Fudge, FUND DEVELOPMENT MANAGER Not available Not available Not available PT FOLLOW-U P 2024 06:00P M Efren Fudge, FUND DEVELOPMENT MANAGER Not available Not available Not available Lab None recorded . Referral None recorded . Procedures None recorded . Surgeries None recorded . Imaging None recorded . Medication Orders None recorded . Patient TargetsNo targets recorded. Patient InstructionsNo instructions recorded. Reason for Referral None Reported. Procedures Surgical History Date Name Laterality Status Provider Name and Address Organization Details Recorded Time 4 71412 Therapeutic Exercise (1:1) completed Efren Hinojosa, FUND DEVELOPMENT MANAGER [address], [place], [address], [facility] 06/11/2023 05:36:49 4 68418 Therapeutic Exercise (1:1) completed Efren Hinojosa, FUND DEVELOPMENT MANAGER [address], [place], [address], [facility] 06/07/2023 09:11:33 4 31741: Manual therapy completed Efren Hinojosa, FUND DEVELOPMENT MANAGER [address], [place], [address], [facility] 06/07/2023 09:11:33 4 84856 Therapeutic Exercise (1:1) completed Benedict Sainz DPT [address], [place], [address], [facility] 05/31/2023 09:34:16 4 88287: Manual therapy completed DORI FergusonT [address], [place], [address], [facility] 05/31/2023 09:34:16 4 62159 Therapeutic Exercise (1:1) completed Benedict Sainz DPT [address], [place], [address], [facility] 05/29/2023 14:47:53 4 77288: Manual therapy completed DORI FergusonT [address], [place], [address], [facility] 05/29/2023 14:47:49 4 90198 Therapeutic Exercise (1:1) completed Efren Hinojosa FUND DEVELOPMENT MANAGER [address], [place], [address], [facility] 05/24/2023 13:24:59 4 04018: Manual therapy completed Efren Hinojosa FUND DEVELOPMENT MANAGER [address], [place], [address], [facility] 05/24/2023 13:24:59 4 12655 Therapeutic Exercise (1:1) completed Efren Hinojosa FUND DEVELOPMENT MANAGER [address], [place], [address], [facility] 05/24/2023 10:24:36 4 39968: Manual therapy completed Efren Hinojosa FUND DEVELOPMENT MANAGER [address], [place], [address], [facility] 05/24/2023 10:24:36 4 76043 Therapeutic Exercise (1:1) completed Benedict Sainz DPT [address], [place], [address], [facility] 05/17/2023 16:31:18 4 26857: Manual therapy completed Benedict Sainz DPT [address], [place], [address], [facility] 05/17/2023 16:31:10 4 40351 Therapeutic Exercise (1:1) completed Benedict Sainz DPT [address], [place], [address], [facility] 05/16/2023 18:59:28 4 00286: Manual therapy completed DORI FergusonT [address], [place], [address], [facility] 05/16/2023 18:59:25 4 24790 Therapeutic Exercise (1:1) completed DORI FergusonT [address], [place], [address], [facility] 05/15/2023 18:44:31 4 49744 Therapeutic Exercise (1:1) completed Efren Hinojosa, FUND DEVELOPMENT MANAGER [address], [place], [address], [facility] 05/10/2023 13:12:17 4 18604: Manual therapy completed Efren Hinojosa, FUND DEVELOPMENT MANAGER [address], [place], [address], [facility] 05/10/2023 13:12:17 4 25748 Therapeutic Exercise (1:1) completed Efren Hinojosa, FUND DEVELOPMENT MANAGER [address], [place], [address], [facility] 05/09/2023 07:18:26 4 16711: Manual therapy completed Efren Hinojosa, FUND DEVELOPMENT MANAGER [address], [place], [address], [facility] 05/09/2023 07:18:26 4 84621 Therapeutic Exercise (1:1) completed Efren Hinojosa, FUND DEVELOPMENT MANAGER [address], [place], [address], [facility] 05/06/2023 15:27:07 4 15053: Manual therapy completed Efren Hinojosa, FUND DEVELOPMENT MANAGER [address], [place], [address], [facility] 05/06/2023 15:27:07 4 81869 Therapeutic Exercise (1:1) completed Benedict Sainz, DPT [address], [place], [address], [facility] 05/01/2023 14:39:13 4 67512: Manual therapy completed Benedict Sainz DPT [address], [place], [address], [facility] 05/01/2023 14:39:13 4 34564 Therapeutic Exercise (1:1) completed Efren Hinojosa, FUND DEVELOPMENT MANAGER [address], [place], [address], [facility] 04/26/2023 01:40:07 4 25333: Manual therapy completed Efren Hinojosa, FUND DEVELOPMENT MANAGER [address], [place], [address], [facility] 04/26/2023 01:41:24 Imaging Results None recorded. Procedure Notes None recorded. Medical Equipment None Reported. Allergies Allergen ID Allergen Name Allergen Category Reaction Reaction Severity Criticality Documentation Date Start Date Code Code System Note Provider Name and Address Organization Details Recorded Time 137298 aspirin medicatio n Not available Not available Not available 05/22/2023 1191 RxNorm VJ BAZAN [facility] 4 13:09:04 210190 lactose food,medi cation Not available Not available Not available 05/22/2023 6211 RxNorm VJ BAZAN [facility] 4 13:09:13 141876 Medicinal product containin g penicilli n and acting as antibacte rial agent (product) medicatio n Not available Not available Not available 05/22/2023 33330 05 SNOMED VJ BAZAN [facility] 4 13:09:27 Medications Name Sig Start [...] Problems N Vascular Disease N Heart Attack ([place]) N Gastrointestinal Disease N Diabetes Y Autoimmune [...] SNOMED-CT Code Diagnosis ICD10 Code Diagnosis Note [id number] DORI FergusonT [facility] [address] [place] [address] 11/22/2023 15:23:34 11/22/2023 16:14:54 Partial tear, knee, anterior cruciate ligament 405907312 S83.511A [id number] Oni Stovall, PT [facility] [address] [place] [address] 11/27/2023 15:27:28 11/27/2023 16:41:45 Partial tear, knee, anterior cruciate ligament 058174040 S83.511A [id number] Oni Stovall, PT [facility] [address] [place] [address] 11/29/2023 12:17:19 11/29/2023 14:21:56 Partial tear, knee, anterior cruciate ligament 301379048 S83.511A [id number] DORI FergusonT [facility] [address] [place] [address] 12/03/2023 15:31:38 12/03/2023 16:19:31 Partial tear, knee, anterior cruciate ligament 529482099 S83.511A [id number] Benedict Sainz DPT [facility] [address] [place] [address] 12/05/2023 15:24:44 12/05/2023 17:17:04 Partial tear, knee, anterior cruciate ligament 217461535 S83.511A [id number] Benedict Sainz DPT [facility] [address] [place] [address] 12/10/2023 15:27:00 12/10/2023 16:18:44 Partial tear, knee, anterior cruciate ligament 890854736 S83.511A [id number] Oni Stovall, PT [facility] [address] [place] [address] 12/12/2023 15:33:43 12/12/2023 17:25:02 Partial tear, knee, anterior cruciate ligament 770088847 S83.511A [id number] DORI FergusonT [facility] [address] [place] [address] 12/18/2023 15:17:59 12/18/2023 16:27:34 Partial tear, knee, anterior cruciate ligament 117484068 S83.511A Health Concerns Section Related Observation LastModified by Organization Detai ls LastModified Time None Recorded Concern Status LastModified by Organization Details LastModified Time None Recorded Payers Encounter Date Sequence Insurance Name Policy Number Policy Cee Covered Member ID Cee Member ID Guarantor Name 12/18/2023 [employer] Luis Caal Notes Date Note Type Note Provider Name and Address Organization Details Recorded Time 12/18/2023 text/html Patient reports his knee feels good today.Pains 0/10 at rest Benedict Sainz DPT [address], [place], [address], [facility] 12/18/2023 17:15:05
--- OUTSIDE RECORDS SUMMARY | 2024-02-29 10:27 | XMS_ITS | Continuity of Care Document ---
Author Organization [facility], Alexusdaria PT Address [address] [place] [address] Assessment Encounter Date Assessment Date Assessment LastModified by Organization Details LastModified Time 01/08/2024 01/08/2024 Assessment: Pt continues to demonstrate quick fatigues and requires small restbreak b/t exercises. Decreased barber to landing jumps w/ involved LE. Slowly improving endurance and strength. Denies increased pain or instability at the end of the session. Plan: Continue PT 2x/week for jumping, strengthening and stabilization program. [email or web address] Not available 01/13/2024 20:42:34 Plan of Treatment Reminders Order Date Submit Date Provider Last Modified By Organization Details Last Modified Time Details Appointments PT FOLLOW-U P 2024 04:00P M Efren Paredese, PIPE FITTER AMMONIA Not available Not available Not available RECHECK 15 2024 01:00P M Bhanu Peter PA-C Not available Not available Not available PT FOLLOW-U P 2024 02:30P M Dammartha Fudge, PIPE FITTER AMMONIA Not available Not available Not available PT FOLLOW-U P 2024 05:00P M Damieana Fudge, PIPE FITTER AMMONIA Not available Not available Not available PT FOLLOW-U P 2024 05:00P M Damieana Fudge, PIPE FITTER AMMONIA Not available Not available Not available PT FOLLOW-U P 2024 05:30P M Damieana Fudge, PIPE FITTER AMMONIA Not available Not available Not available PT FOLLOW-U P 2024 05:30P M Damkelechiana Fudge, PIPE FITTER AMMONIA Not available Not available Not available PT ANY 30 2024 06:00P M Benedict Sainz DPT Not available Not available Not available PT FOLLOW-U P 2024 04:00P M Efren Riverasimrane, PIPE FITTER AMMONIA Not available Not available Not available PT FOLLOW-U P 2024 06:00P M Efren Riveradge, PIPE FITTER AMMONIA Not available Not available Not available PT FOLLOW-U P 2024 06:00P M Efren Fudge, PIPE FITTER AMMONIA Not available Not available Not available Lab None recorded . Referral None recorded . Procedures None recorded . Surgeries None recorded . Imaging None recorded . Medication Orders None recorded . Patient TargetsNo targets recorded. Patient InstructionsNo instructions recorded. Reason for Referral None Reported. Procedures Surgical History Date Name Laterality Status Provider Name and Address Organization Details Recorded Time 4 54547 Therapeutic Exercise (1:1) completed Efren Hinojosa, PIPE FITTER AMMONIA [address], [place], [address], [facility] 06/11/2023 05:36:49 4 94042 Therapeutic Exercise (1:1) completed Efern Hinojosa, PIPE FITTER AMMONIA [address], [place], [address], [facility] 06/07/2023 09:11:33 4 74665: Manual therapy completed Efren Hinojosa, PIPE FITTER AMMONIA [address], [place], [address], [facility] 06/07/2023 09:11:33 4 99201 Therapeutic Exercise (1:1) completed Benedict Sainz DPT [address], [place], [address], [facility] 05/31/2023 09:34:16 4 05562: Manual therapy completed DORI FergusonT [address], [place], [address], [facility] 05/31/2023 09:34:16 4 01549 Therapeutic Exercise (1:1) completed Benedict Sainz DPT [address], [place], [address], [facility] 05/29/2023 14:47:53 4 15257: Manual therapy completed DORI FergusonT [address], [place], [address], [facility] 05/29/2023 14:47:49 4 86378 Therapeutic Exercise (1:1) completed Efren Hinojosa PIPE FITTER AMMONIA [address], [place], [address], [facility] 05/24/2023 13:24:59 4 78527: Manual therapy completed Efren Hinojosa PIPE FITTER AMMONIA [address], [place], [address], [facility] 05/24/2023 13:24:59 4 32625 Therapeutic Exercise (1:1) completed Efren Hinojosa PIPE FITTER AMMONIA [address], [place], [address], [facility] 05/24/2023 10:24:36 4 41372: Manual therapy completed Efren Hinojosa PTA [address], [place], [address], [facility] 05/24/2023 10:24:36 4 73311 Therapeutic Exercise (1:1) completed Benedict Sainz DPT [address], [place], [address], [facility] 05/17/2023 16:31:18 4 62735: Manual therapy completed Benedict Sainz DPT [address], [place], [address], [facility] 05/17/2023 16:31:10 4 73615 Therapeutic Exercise (1:1) completed Benedict Sainz DPT [address], [place], [address], [facility] 05/16/2023 18:59:28 4 69311: Manual therapy completed DORI FergusonT [address], [place], [address], [facility] 05/16/2023 18:59:25 4 59508 Therapeutic Exercise (1:1) completed DORI FergusonT [address], [place], [address], [facility] 05/15/2023 18:44:31 4 17366 Therapeutic Exercise (1:1) completed Efren Hinojosa, PIPE FITTER AMMONIA [address], [place], [address], [facility] 05/10/2023 13:12:17 4 72970: Manual therapy completed Efren Hinojosa, PIPE FITTER AMMONIA [address], [place], [address], [facility] 05/10/2023 13:12:17 4 05978 Therapeutic Exercise (1:1) completed Efren Hinojosa, PIPE FITTER AMMONIA [address], [place], [address], [facility] 05/09/2023 07:18:26 4 18876: Manual therapy completed Efren Hinojosa, PIPE FITTER AMMONIA [address], [place], [address], [facility] 05/09/2023 07:18:26 4 67362 Therapeutic Exercise (1:1) completed Efren Hinojosa, PIPE FITTER AMMONIA [address], [place], [address], [facility] 05/06/2023 15:27:07 4 79109: Manual therapy completed Efren Hinojosa, PIPE FITTER AMMONIA [address], [place], [address], [facility] 05/06/2023 15:27:07 4 14423 Therapeutic Exercise (1:1) completed Benedict Sainz, DPT [address], [place], [address], [facility] 05/01/2023 14:39:13 4 65569: Manual therapy completed Benedict Sainz DPT [address], [place], [address], [facility] 05/01/2023 14:39:13 4 98279 Therapeutic Exercise (1:1) completed Efren Hinojosa, PIPE FITTER AMMONIA [address], [place], [address], [facility] 04/26/2023 01:40:07 4 82763: Manual therapy completed Efren Hinojosa, PIPE FITTER AMMONIA [address], [place], [address], [facility] 04/26/2023 01:41:24 Imaging Results None recorded. Procedure Notes None recorded. Medical Equipment None Reported. Allergies Allergen ID Allergen Name Allergen Category Reaction Reaction Severity Criticality Documentation Date Start Date Code Code System Note Provider Name and Address Organization Details Recorded Time 852975 aspirin medicatio n Not available Not available Not available 05/22/2023 1191 RxNorm VJ ARMASDEN [facility] 4 13:09:04 028177 lactose food,medi cation Not available Not available Not available 05/22/2023 6211 RxNorm VJ BAZAN [facility] 4 13:09:13 194307 Medicinal product containin g penicilli n and acting as antibacte rial agent (product) medicatio n Not available Not available Not available 05/22/2023 94849 05 SNOMED VJ BAZAN [facility] 4 13:09:27 Medications Name Sig Start Date [...] Problems N Vascular Disease N Heart Attack ([place]) N Gastrointestinal Disease N Diabetes Y Autoimmune [...] SNOMED-CT Code Diagnosis ICD10 Code Diagnosis Note [id number] Benedict Sainz DPT [facility] [address] [place] [address] 12/10/2023 15:27:00 12/10/2023 16:18:44 Partial tear, knee, anterior cruciate ligament 585927551 S83.511A [id number] Oni Stovall, PT [facility] [address] [place] [address] 12/12/2023 15:33:43 12/12/2023 17:25:02 Partial tear, knee, anterior cruciate ligament 783156726 S83.511A [id number] Benedict Sainz DPT [facility] [address] [place] [address] 12/18/2023 15:17:59 12/18/2023 16:27:34 Partial tear, knee, anterior cruciate ligament 601800145 S83.511A [id number] Oni Stovall, PT [facility] [address] [place] [address] 12/20/2023 12:27:40 12/20/2023 13:13:16 Partial tear, knee, anterior cruciate ligament 863684812 S83.511A [id number] Harvey Urrutia MD [facility] [address] [place] [address] 12/20/2023 14:51:11 01/17/2024 09:22:49 Complete tear, knee, anterior cruciate ligament 455106321 S83.511D [id number] Benedict Sainz DPT [facility] [address] [place] [address] 12/24/2023 15:24:27 12/24/2023 16:02:58 Partial tear, knee, anterior cruciate ligament 562140663 S83.511A [id number] Benedict Sainz, DPT [facility] [address] [place] [address] 12/27/2023 14:57:15 12/27/2023 15:51:28 Partial tear, knee, anterior cruciate ligament 115884717 S83.511A [id number] Benedict Sainz, DPT [facility] [address] [place] [address] 01/01/2024 15:56:48 01/01/2024 16:42:05 Partial tear, knee, anterior cruciate ligament 670425338 S83.511A [id number] Benedict Sainz, DPT [facility] [address] [place] [address] 01/03/2024 16:39:18 01/03/2024 17:28:40 Partial tear, knee, anterior cruciate ligament 690992297 S83.511A [id number] Oni Stovall, PT [facility] [address] [place] [address] 01/08/2024 14:58:47 01/08/2024 16:03:23 Partial tear, knee, anterior cruciate ligament 262342935 S83.511A Health Concerns Section Related Observation LastModified by Organization Detai ls LastModified Time None Recorded Concern Status LastModified by Organization Details LastModified Time None Recorded Payers Encounter Date Sequence Insurance Name Policy Number Policy Cee Covered Member ID Cee Member ID Guarantor Name 01/08/2024 [employer] Luis Landrumtacho Caal Notes Date Note Type Note Provider Name and Address Organization Details Recorded Time 01/08/2024 text/html Pt reports no pain, met with orthopedic MD for check up arranged by employers. Recheck went well and pt hopes to return to work on light duty. Efren Hinojosa, PIPE FITTER AMMONIA [address], [place], [address], [facility] 01/13/2024 20:43:05
--- OUTSIDE RECORDS SUMMARY | 2024-02-29 10:28 | XMS_ITS | Continuity of Care Document ---
Author Organization [facility], Luis PT Address [address] [place] [address] Assessment Encounter Date Assessment Date Assessment LastModified by Organization Details LastModified Time 12/10/2023 12/10/2023 Assessment: Pt demonstrates ongoing improving LE strength but difficulty with jumping in single limb. Denies increased pain or instability at the end of the session. Plan: Continue PT 2x/week for jumping, strengthening and stabilization program. [email or web address] Not available 12/10/2023 16:45:05 Plan of Treatment Reminders Order Date Submit Date Provider Last Modified By Organization Details Last Modified Time Details Appointments PT FOLLOW-U P 2024 04:00P M Damieana Fudge, COMPOSITION TILE LAYER Not available Not available Not available RECHECK 15 2024 01:00P M Bhanu Peter PA-C Not available Not available Not available PT FOLLOW-U P 2024 02:30P M Damieana Fudge, COMPOSITION TILE LAYER Not available Not available Not available PT FOLLOW-U P 2024 05:00P M Damieana Fudge, COMPOSITION TILE LAYER Not available Not available Not available PT FOLLOW-U P 2024 05:00P M Damieana Fudge, COMPOSITION TILE LAYER Not available Not available Not available PT FOLLOW-U P 2024 05:30P M Damieana Fudge, COMPOSITION TILE LAYER Not available Not available Not available PT FOLLOW-U P 2024 05:30P M Damieana Fudge, COMPOSITION TILE LAYER Not available Not available Not available PT ANY 30 2024 06:00P M Benedict Sainz DPT Not available Not available Not available PT FOLLOW-U P 2024 04:00P M Efren Riverasimrane, COMPOSITION TILE LAYER Not available Not available Not available PT FOLLOW-U P 2024 06:00P M Efren Riveradge, COMPOSITION TILE LAYER Not available Not available Not available PT FOLLOW-U P 2024 06:00P M Efren Riveradge, COMPOSITION TILE LAYER Not available Not available Not available Lab None recorded . Referral None recorded . Procedures None recorded . Surgeries None recorded . Imaging None recorded . Medication Orders None recorded . Patient TargetsNo targets recorded. Patient InstructionsNo instructions recorded. Reason for Referral None Reported. Procedures Surgical History Date Name Laterality Status Provider Name and Address Organization Details Recorded Time 4 15824 Therapeutic Exercise (1:1) completed Efren Hinojosa, COMPOSITION TILE LAYER [address], [place], [address], [facility] 06/11/2023 05:36:49 4 60289 Therapeutic Exercise (1:1) completed Efren Hinojosa COMPOSITION TILE LAYER [address], [place], [address], [facility] 06/07/2023 09:11:33 4 83608: Manual therapy completed Efren Hinojosa PTA [address], [place], [address], [facility] 06/07/2023 09:11:33 4 92423 Therapeutic Exercise (1:1) completed Benedict Sainz DPT [address], [place], [address], [facility] 05/31/2023 09:34:16 4 73950: Manual therapy completed DORI FergusonT [address], [place], [address], [facility] 05/31/2023 09:34:16 4 26598 Therapeutic Exercise (1:1) completed DORI FergusonT [address], [place], [address], [facility] 05/29/2023 14:47:53 04/16/202 4 52539: Manual therapy completed DORI FergusonT [address], [place], [address], [facility] 05/29/2023 14:47:49 4 60685 Therapeutic Exercise (1:1) completed Efren Hinojosa, COMPOSITION TILE LAYER [address], [place], [address], [facility] 05/24/2023 13:24:59 4 33019: Manual therapy completed Efren Hinojosa, COMPOSITION TILE LAYER [address], [place], [address], [facility] 05/24/2023 13:24:59 4 54161 Therapeutic Exercise (1:1) completed Efren Hinojosa, COMPOSITION TILE LAYER [address], [place], [address], [facility] 05/24/2023 10:24:36 4 32828: Manual therapy completed Efren Hinojosa, COMPOSITION TILE LAYER [address], [place], [address], [facility] 05/24/2023 10:24:36 4 34024 Therapeutic Exercise (1:1) completed DORI FergusonT [address], [place], [address], [facility] 05/17/2023 16:31:18 4 67095: Manual therapy completed DORI FergusonT [address], [place], [address], [facility] 05/17/2023 16:31:10 4 17480 Therapeutic Exercise (1:1) completed DORI FergusonT [address], [place], [address], [facility] 05/16/2023 18:59:28 4 02778: Manual therapy completed DORI FergusonT [address], [place], [address], [facility] 05/16/2023 18:59:25 4 84029 Therapeutic Exercise (1:1) completed DORI FergusonT [address], [place], [address], [facility] 05/15/2023 18:44:31 4 33971 Therapeutic Exercise (1:1) completed Efren Hinojosa, COMPOSITION TILE LAYER [address], [place], [address], [facility] 05/10/2023 13:12:17 4 83956: Manual therapy completed Efren Hinojosa, COMPOSITION TILE LAYER [address], [place], [address], [facility] 05/10/2023 13:12:17 4 59747 Therapeutic Exercise (1:1) completed Efren Hinojosa, COMPOSITION TILE LAYER [address], [place], [address], [facility] 05/09/2023 07:18:26 4 30572: Manual therapy completed Efren Hinojosa, COMPOSITION TILE LAYER [address], [place], [address], [facility] 05/09/2023 07:18:26 4 01940 Therapeutic Exercise (1:1) completed Efren Hinojosa, COMPOSITION TILE LAYER [address], [place], [address], [facility] 05/06/2023 15:27:07 4 78086: Manual therapy completed Efren Hinojosa, COMPOSITION TILE LAYER [address], [place], [address], [facility] 05/06/2023 15:27:07 4 10421 Therapeutic Exercise (1:1) completed Hongshin Alistair, DPT [address], [place], [address], [facility] 05/01/2023 14:39:13 4 89725: Manual therapy completed Benedict Sainz, DPT [address], [place], [address], [facility] 05/01/2023 14:39:13 4 37470 Therapeutic Exercise (1:1) completed Efren Hinojosa, COMPOSITION TILE LAYER [address], [place], [address], [facility] 04/26/2023 01:40:07 4 10639: Manual therapy completed Efren Hinojosa, COMPOSITION TILE LAYER [address], [place], [address], [facility] 04/26/2023 01:41:24 Imaging Results None recorded. Procedure Notes None recorded. Medical Equipment None Reported. Allergies Allergen ID Allergen Name Allergen Category Reaction Reaction Severity Criticality Documentation Date Start Date Code Code System Note Provider Name and Address Organization Details Recorded Time 905071 aspirin medicatio n Not available Not available Not available 05/22/2023 1191 RxNorm VJ BAZAN [facility] 4 13:09:04 837442 lactose food,medi cation Not available Not available Not available 05/22/2023 6211 RxNorm VJ BAZAN [facility] 4 13:09:13 692676 Medicinal product containin g penicilli n and acting as antibacte rial agent (product) medicatio n Not available Not available Not available 05/22/2023 05263 05 SNOMED VJ BAZAN [facility] 4 13:09:27 Medications Name Sig Start Date [...] Problems N Vascular Disease N Heart Attack ([place]) N Gastrointestinal Disease N Diabetes Y Autoimmune [...] SNOMED-CT Code Diagnosis ICD10 Code Diagnosis Note [id number] Oni Stovall, PT [facility] [address] [place] [address] 11/14/2023 14:58:58 11/14/2023 17:12:29 Partial tear, knee, anterior cruciate ligament 144449978 S83.511A [id number] Oni Stovall, PT [facility] [address] [place] [address] 11/16/2023 14:04:18 11/16/2023 14:50:04 Partial tear, knee, anterior cruciate ligament 578192145 S83.511A [id number] Benedict Sainz DPT [facility] [address] [place] [address] 11/22/2023 15:23:34 11/22/2023 16:14:54 Partial tear, knee, anterior cruciate ligament 927081455 S83.511A [id number] Oni Stovall, PT [facility] [address] [place] [address] 11/27/2023 15:27:28 11/27/2023 16:41:45 Partial tear, knee, anterior cruciate ligament 957218718 S83.511A [id number] Oni Stovall, PT [facility] [address] [place] [address] 11/29/2023 12:17:19 11/29/2023 14:21:56 Partial tear, knee, anterior cruciate ligament 110199755 S83.511A [id number] Benedict Sainz, DPT [facility] [address] [place] [address] 12/03/2023 15:31:38 12/03/2023 16:19:31 Partial tear, knee, anterior cruciate ligament 620675560 S83.511A [id number] Benedict Sainz DPT [facility] [address] [place] [address] 12/05/2023 15:24:44 12/05/2023 17:17:04 Partial tear, knee, anterior cruciate ligament 469918571 S83.511A [id number] ABUNDIO [facility] [address] [place] [address] 12/10/2023 15:27:00 12/10/2023 16:18:44 Partial tear, knee, anterior cruciate ligament 089931185 S83.511A Health Concerns Section Related Observation LastModified by Organization Detai ls LastModified Time None Recorded Concern Status LastModified by Organization Details LastModified Time None Recorded Payers Encounter Date Sequence Insurance Name Policy Number Policy Cee Covered Member ID Cee Member ID Guarantor Name 12/10/2023 [employer] Luis Caal Notes Date Note Type Note Provider Name and Address Organization Details Recorded Time 12/10/2023 text/html Patient reports his knee feels good today.Pains 0/10 at rest Benedict Sainz DPT [address], [place], [address], [facility] 12/10/2023 16:48:15
--- OUTSIDE RECORDS SUMMARY | 2024-02-29 10:28 | XMS_ITS | Continuity of Care Document ---
Author Organization [facility], Luis PT Address [address] [place] [address] Assessment Encounter Date Assessment Date Assessment LastModified by Organization Details LastModified Time 12/12/2023 12/12/2023 Assessment: Pt demonstrates ongoing improving LE strength but difficulty with jumping in single limb. Denies increased pain or instability at the end of the session. Plan: Continue PT 2x/week for jumping, strengthening and stabilization program. [email or web address] Not available 12/14/2023 07:36:25 Plan of Treatment Reminders Order Date Submit Date Provider Last Modified By Organization Details Last Modified Time Details Appointments PT FOLLOW-U P 2024 04:00P M Damieana Fudge, DIE FINISHER Not available Not available Not available RECHECK 15 2024 01:00P M Bhanu Peter PA-C Not available Not available Not available PT FOLLOW-U P 2024 02:30P M Damieana Fudge, DIE FINISHER Not available Not available Not available PT FOLLOW-U P 2024 05:00P M Damieana Fudge, DIE FINISHER Not available Not available Not available PT FOLLOW-U P 2024 05:00P M Damieana Fudge, DIE FINISHER Not available Not available Not available PT FOLLOW-U P 2024 05:30P M Damieana Fudge, DIE FINISHER Not available Not available Not available PT FOLLOW-U P 2024 05:30P M Damieana Fudge, DIE FINISHER Not available Not available Not available PT ANY 30 2024 06:00P M Benedict Sainz DPT Not available Not available Not available PT FOLLOW-U P 2024 04:00P M Damieana Fusimrane, DIE FINISHER Not available Not available Not available PT FOLLOW-U P 2024 06:00P M Efren Riveradge, DIE FINISHER Not available Not available Not available PT FOLLOW-U P 2024 06:00P M Efren Riveradge, DIE FINISHER Not available Not available Not available Lab None recorded . Referral None recorded . Procedures None recorded . Surgeries None recorded . Imaging None recorded . Medication Orders None recorded . Patient TargetsNo targets recorded. Patient InstructionsNo instructions recorded. Reason for Referral None Reported. Procedures Surgical History Date Name Laterality Status Provider Name and Address Organization Details Recorded Time 4 93387 Therapeutic Exercise (1:1) completed Efren Hinojosa, DIE FINISHER [address], [place], [address], [facility] 06/11/2023 05:36:49 4 40025 Therapeutic Exercise (1:1) completed Efren Hinojosa DIE FINISHER [address], [place], [address], [facility] 06/07/2023 09:11:33 4 82466: Manual therapy completed Efren Hinojosa, DIE FINISHER [address], [place], [address], [facility] 06/07/2023 09:11:33 4 97005 Therapeutic Exercise (1:1) completed Benedict Sainz DPT [address], [place], [address], [facility] 05/31/2023 09:34:16 4 66748: Manual therapy completed DORI FergusonT [address], [place], [address], [facility] 05/31/2023 09:34:16 4 87940 Therapeutic Exercise (1:1) completed DORI FergusonT [address], [place], [address], [facility] 05/29/2023 14:47:53 4 28193: Manual therapy completed DORI FergusonT [address], [place], [address], [facility] 05/29/2023 14:47:49 4 62832 Therapeutic Exercise (1:1) completed Efren Hinojosa, DIE FINISHER [address], [place], [address], [facility] 05/24/2023 13:24:59 4 42983: Manual therapy completed Efren Hinojosa, DIE FINISHER [address], [place], [address], [facility] 05/24/2023 13:24:59 4 08189 Therapeutic Exercise (1:1) completed Efren Hinojosa, DIE FINISHER [address], [place], [address], [facility] 05/24/2023 10:24:36 4 28650: Manual therapy completed Efren Hinojosa, DIE FINISHER [address], [place], [address], [facility] 05/24/2023 10:24:36 4 96224 Therapeutic Exercise (1:1) completed Benedict Sainz DPT [address], [place], [address], [facility] 05/17/2023 16:31:18 4 56984: Manual therapy completed Benedict Sainz DPT [address], [place], [address], [facility] 05/17/2023 16:31:10 4 01945 Therapeutic Exercise (1:1) completed Benedict Sainz DPT [address], [place], [address], [facility] 05/16/2023 18:59:28 4 24809: Manual therapy completed DORI FergusonT [address], [place], [address], [facility] 05/16/2023 18:59:25 4 82256 Therapeutic Exercise (1:1) completed DORI FergusonT [address], [place], [address], [facility] 05/15/2023 18:44:31 4 55300 Therapeutic Exercise (1:1) completed Efren Hinojosa, DIE FINISHER [address], [place], [address], [facility] 05/10/2023 13:12:17 4 78794: Manual therapy completed Efren Hinojosa, DIE FINISHER [address], [place], [address], [facility] 05/10/2023 13:12:17 4 40099 Therapeutic Exercise (1:1) completed Efren Hinojosa, DIE FINISHER [address], [place], [address], [facility] 05/09/2023 07:18:26 4 37449: Manual therapy completed Efren Hinojosa, DIE FINISHER [address], [place], [address], [facility] 05/09/2023 07:18:26 4 81682 Therapeutic Exercise (1:1) completed Efren Hinojosa, DIE FINISHER [address], [place], [address], [facility] 05/06/2023 15:27:07 4 92767: Manual therapy completed Efren Hinojosa, DIE FINISHER [address], [place], [address], [facility] 05/06/2023 15:27:07 4 81807 Therapeutic Exercise (1:1) completed Hongshin Alistair, DPT [address], [place], [address], [facility] 05/01/2023 14:39:13 4 97017: Manual therapy completed Brianvirginie Alistair, DPT [address], [place], [address], [facility] 05/01/2023 14:39:13 4 94710 Therapeutic Exercise (1:1) completed Efren Hinojosa, DIE FINISHER [address], [place], [address], [facility] 04/26/2023 01:40:07 4 97769: Manual therapy completed Efren Hinojosa, DIE FINISHER [address], [place], [address], [facility] 04/26/2023 01:41:24 Imaging Results None recorded. Procedure Notes None recorded. Medical Equipment None Reported. Allergies Allergen ID Allergen Name Allergen Category Reaction Reaction Severity Criticality Documentation Date Start Date Code Code System Note Provider Name and Address Organization Details Recorded Time 362495 aspirin medicatio n Not available Not available Not available 05/22/2023 1191 RxNorm VJ BAZAN [facility] 4 13:09:04 352015 lactose food,medi cation Not available Not available Not available 05/22/2023 [facility] 4 13:09:13 872487 Medicinal product containin g penicilli n and acting as antibacte rial agent (product) medicatio n Not available Not available Not available 05/22/2023 26663 05 SNOMED VJ BAZAN [facility] 4 13:09:27 Medications Name Sig Start [...] N Kidney/Bladder Problems N Vascular Disease N Gastrointestinal Disease N Heart Attack ([place]) N Diabetes Y Autoimmune disease N Bleeding Disorder N Orthotics N Seizures/Epilepsy N Arthritis N Blood Clot N AIDS/HIV N Congestive Heart Failure (CHF) N Acid Reflux (GERD) N Cancer N Stroke N Asthma N Peripheral Vascular Disease N Sleep Apnea N Hepatitis N Heart Disease N Rheumatoid Arthritis N Pulmonary Embolism N Arrhythmia N Fibromyalgia N Hypertension Y Osteoporosis N Past Encounters Encounter ID Performer Location Encounter Start Date Encounter Closed Date Diagnosis/Indication Diagnosis SNOMED-CT Code Diagnosis ICD10 Code Diagnosis Note [id number] Oni Stovall, PT [facility] [address] [place] [address] 11/14/2023 14:58:58 11/14/2023 17:12:29 Partial tear, knee, anterior cruciate ligament [id number] S83.511A [id number] Oni Stovall, PT [facility] [address] [place] [address] 11/16/2023 14:04:18 11/16/2023 14:50:04 Partial tear, knee, anterior cruciate ligament [id number] S83.511A [id number] Benedict Sainz, DPT [facility] [address] [place] [address] 11/22/2023 15:23:34 11/22/2023 16:14:54 Partial tear, knee, anterior cruciate ligament [id number] S83.511A [id number] Oni Stovall, PT [facility] [address] [place] [address] 11/27/2023 15:27:28 11/27/2023 16:41:45 Partial tear, knee, anterior cruciate ligament [id number] S83.511A [id number] Oni Stovall, PT [facility] [address] [place] [address] 11/29/2023 12:17:19 11/29/2023 14:21:56 Partial tear, knee, anterior cruciate ligament [id number] S83.511A [id number] Benedict Sainz, DPT [facility] [address] [place] [address] 12/03/2023 15:31:38 12/03/2023 16:19:31 Partial tear, knee, anterior cruciate ligament [id number] S83.511A [id number] Benedict Sainz, DPT [facility] [address] [place] [address] 12/05/2023 15:24:44 12/05/2023 17:17:04 Partial tear, knee, anterior cruciate ligament [id number] S83.511A [id number] Benedict Sainz, DPT [facility] [address] [place] [address] 12/10/2023 15:27:00 12/10/2023 16:18:44 Partial tear, knee, anterior cruciate ligament [id number] S83.511A [id number] Oni Stovall, PT [facility] [address] [place] [address] 12/12/2023 15:33:43 12/12/2023 17:25:02 Partial tear, knee, anterior cruciate ligament [id number] S83.511A Health Concerns Section Related Observation LastModified by Organization Detai ls LastModified Time None Recorded Concern Status LastModified by Organization Details LastModified Time None Recorded Payers Encounter Date Sequence Insurance Name Policy Number Policy Cee Covered Member ID Cee Member ID Guarantor Name 12/12/2023 [employer] [facility] Luis Caal Notes Date Note Type Note Provider Name and Address Organization Details Recorded Time 12/12/2023 text/html Patient reports his knee feels good today.Pains 0/10 at rest Efren Hinojosa, DIE FINISHER [address], [place], [address], [facility] 12/14/2023 08:42:51
[2024-02-29 10:43] LABS: Estimated Average Glucose 163 mg/dL; Hemoglobin A1C 214.4217 umol/L; Hemoglobin A1c % 7.3 % (<6.0); Total Hemoglobin (HGBA1C) 3841.5312 umol/L
[2024-02-29 10:57] LABS: Anion Gap 13 (12-20); Blood Urea Nitrogen 13 mg/dL (9-16); Calcium 9.4 mg/dL (8.4-10.2); Carbon Dioxide 27 mmol/L (22-29); Chloride 108 mmol/L (96-108); Estimated Glomerular Filt Rate > 60; Glucose Fasting 122 mg/dL (60-99); Potassium 4.5 mmol/L (3.3-5.1); Sodium 143 mmol/L (135-145)
== END 2024-02-29 09:27 | disposition home or self-care (01) ==
LOC: HO.LAB 09:26
PROVIDERS: PCP Student in an Organized Health Care Education/Training Program; Visit Provider Urology
DX: E11.9 Type 2 diabetes mellitus without complications (principal); Z41.2 Encounter for routine and ritual male circumcision; Z30.09 Encounter for other general counseling and advice on contraception
CPT/HCPCS: 36415; 80048; 83036

== ENCOUNTER 2024-03-11 09:22 | Day surgery (SDC) | payer MEDICAID, SELFPAY ==
[2024-03-07 14:24] VITALS: BMI 29.2
--- NOTE | 2024-03-10 09:23 | HO.ANESPROP2 ---
Documented by User: Yeimi Beaver NP 03/10/24 09:24 HPI - Anesthesia Eval Consult details Narrative: 38yo M for Circumcision, Bilateral Vasectomy Anesthesia Pre-Procedure Meds Is the patient on any of the following meds?: GLP1/DPP4 and SGLT2 Inhib PMFSH Active Problems Active Problems: All Active Problems Anxiety about health (Acute) Encounter for vasectomy counseling (Acute) Balanitis (Acute) Diabetes (Acute) Encounter for circumcision (Acute) Past Medical History Medical History Psychiatric illness Post traumatic stress disorder (PTSD) Injury Hypercholesteremia HTN (hypertension) Diabetes Class 1 obesity in adult Surgical History Surgical History Hx of reconstruction of anterior cruciate ligament tear Social History Social History Patient Tobacco Use Status: Never used Tobacco Use of substances other than those prescribed or required for medical reasons: No Are you DNR?: No Advance Directives: No Advance Directives Information Provided: Yes Meds Allergies Allergy/AdvReac Type Severity Reaction Status Date / Time aspirin Allergy Mild Swelling Verified 03/11/24 09:36 lactose Allergy Mild Unknown Verified 03/11/24 09:36 penicillin G Allergy Mild RASH Verified 03/11/24 09:36 Home Medications ?Medication ?Instructions ?Recorded ?Confirmed ?Last Taken ?Type atorvastatin 20 mg tablet 20 mg PO DAILY 01/07/24 03/11/24 Unknown History blood sugar diagnostic (FreeStyle #10 ea 01/07/24 03/11/24 Unknown History Lite Strips) empagliflozin 25 mg tablet 25 mg PO DAILY 01/07/24 03/11/24 03/07/24 History (Jardiance) lancets 28 gauge (FreeStyle #100 ea 01/07/24 03/11/24 Unknown History Lancets) lisinopril 20 1 tab PO DAILY 01/07/24 03/11/24 Unknown History mg-hydrochlorothiazide 12.5 mg tablet metformin 1,000 mg tablet 1,000 mg PO BID 01/07/24 03/11/24 Unknown History sitagliptin phosphate 100 mg 100 mg PO QAM 01/07/24 03/11/24 03/04/24 History tablet (Januvia) cinnamon bark 500 mg capsule 1,000 mg PO DAILY 03/11/24 03/11/24 Unknown History (Cinnamon) glucosamine sulf dipot 1 cap PO DAILY 03/11/24 03/11/24 Unknown History chlr,msm,chond 550 mg-C 30 mg-cynthia 1 mg capsule (Glucosamine Chondroitin) Exam Height,Weight and Vital Signs: Height 5 ft 6 in Weight 82.1 kg Pertinent Lab Results Pertinent Lab Results: Laboratory Tests 02/29/24 09:48 Sodium 143 Potassium 4.5 Chloride 108 Carbon Dioxide 27 BUN 13 Creatinine 0.83 Assessment and Plan Assessment Anesthesia Assessment: Chart Reviewed Documented by User: Mario Westbrook MD 03/11/24 13:37 HPI - Anesthesia Eval Anesthesia Pre-Procedure Meds If yes to any meds - educate patient: Pt education - increased risk of aspiration and/or euvolemic DKA PMFSH Past Medical History Medical History Psychiatric illness Post traumatic stress disorder (PTSD) Injury Hypercholesteremia HTN (hypertension) Diabetes Class 1 obesity in adult Family History Family history of problems with anesthesia: No Surgical History Surgical History Hx of reconstruction of anterior cruciate ligament tear History of Problems with Anesthesia: No Social History Social History Patient Tobacco Use Status: Never used Tobacco Use of substances other than those prescribed or required for medical reasons: No Are you DNR?: No Advance Directives: No Advance Directives Information Provided: Yes Meds Allergies Allergy/AdvReac Type Severity Reaction Status Date / Time aspirin Allergy Mild Swelling Verified 03/11/24 09:36 lactose Allergy Mild Unknown Verified 03/11/24 09:36 penicillin G Allergy Mild RASH Verified 03/11/24 09:36 Home Medications ?Medication ?Instructions ?Recorded ?Confirmed ?Last Taken ?Type atorvastatin 20 mg tablet 20 mg PO DAILY 01/07/24 03/11/24 Unknown History blood sugar diagnostic (FreeStyle #10 ea 01/07/24 03/11/24 Unknown History Lite Strips) empagliflozin 25 mg tablet 25 mg PO DAILY 01/07/24 03/11/24 03/07/24 History (Jardiance) lancets 28 gauge (FreeStyle #100 ea 01/07/24 03/11/24 Unknown History Lancets) lisinopril 20 1 tab PO DAILY 01/07/24 03/11/24 Unknown History mg-hydrochlorothiazide 12.5 mg tablet metformin 1,000 mg tablet 1,000 mg PO BID 01/07/24 03/11/24 Unknown History sitagliptin phosphate 100 mg 100 mg PO QAM 01/07/24 03/11/24 03/04/24 History tablet (Januvia) cinnamon bark 500 mg capsule 1,000 mg PO DAILY 03/11/24 03/11/24 Unknown History (Cinnamon) glucosamine sulf dipot 1 cap PO DAILY 03/11/24 03/11/24 Unknown History chlr,msm,chond 550 mg-C 30 mg-cynthia 1 mg capsule (Glucosamine Chondroitin) Exam Airway Mallampati Class: II TM Dist: <=3cm Neck ROM: Full Loose/Missing/Broken Teeth: No Heart: ok Lungs: ok Assessment and Plan Assessment Anesthesia Assessment: Anesthesia Plan Discussed Final Anesthetic Review Family History of Problems with Anesthesia: No History of Problems with Anesthesia: No NPO: Yes ASA Class: II Final Preanesthetic Review: No Changes in Pt Med Stat, Meds/Allgs Chart Reviewed, Consent Obtained/Reviewed and Anes Risks/Benef Reviewed Patient Risk: Low Procedure Risk: Low Anesthetic Plan Anesthetic Plan: GA and Agree w/ Assess. and Plan Disposition: Standard PACU
[2024-03-11] VITALS (10 sets, daily range): BP systolic 118–130; BP diastolic 78–91; PULSE 67–86; RESP 15–18; TEMP 36.3; O2SAT 97–98; BMI 28.2
--- OUTSIDE RECORDS SUMMARY | 2024-03-11 09:55 | XMS_ITS | Clinical Summary ---
Author Organization [facility] Address [address] [place] [address] Care Team Providers Care Dishwasher Preparer Name Role Phone Modesta Kaplan Primary Care Provider [phone] Source Comments PLEASE NOTE, if this patient is a minor, it may be UNLAWFUL to discuss sensitive information that is contained in these records (such as FAMILY PLANNING, MENTAL HEALTH or SUBSTANCE ABUSE) with the minor patient's parent or other person without the patient's specific authorization.[facility] Allergies Active Allergy Reactions Criticality Noted Date Comments Aspirin Swelling 05/01/2016 Tongues swells- Per Pt Lactose 05/09/2016 Penicillin G Rash,Itching 05/01/2016 Per pt Medications blood-glucose meter (FREESTYLE LITE METER) monitoring kit DX E11.65 - Blood sugar check BID 1 Each 02/01/20 17 Active blood pressure monitorIndicatio ns:Primary hypertension Lifetime need 1 Kit 08/27/19 22 Active hydrOXYzine HCL (ATARAX) 25 mg tabletIndication s:Insomnia, unspecified type Take 1 Tablet by mouth 3 (three) times daily as needed for sleep or anxiety 90 Tablet 3 08/09/19 24 Active metFORMIN (GLUCOPHAGE) 1,000 mg tabletIndication s:Medication refill,Diabetes mellitus type 2 in nonobese (HCC-CMS) Take 1 Tablet by mouth 2 (two) times daily with a meal 180 Tablet 09/14/19 24 Active SITagliptin phosphate (JANUVIA) 100 mg tabletIndication s:Diabetes mellitus type 2 in nonobese (HCC-CMS) Take 1 Tablet by mouth every morning 90 Tablet 1 10/29/19 24 Active melatonin 5 mg tabIndications:I nsomnia, unspecified type Take 2 Tablets by mouth nightly at bedtime for 90 days 60 Tablet 2 11/04/19 24 Active atorvastatin (LIPITOR) 20 mg tabletIndication s:Medication refill,Diabetes mellitus type 2 in nonobese ([facility]),Dyslip idemia TAKE 1 TABLET BY MOUTH DAILY 90 Tablet 1 11/25/19 24 Active blood sugar diagnostic stripsIndication s:Type 2 diabetes mellitus with hyperglycemia, without long-term current use of insulin ([facility]) Use to check BG 1x/d DX E11.9 Freestyle Lite 100 Each 11 12/03/19 24 Active lancets (FREESTYLE LANCETS) 28 gaugeIndications :Type 2 diabetes mellitus with hyperglycemia, without long-term current use of insulin ([facility]) Use to check BG 1x/d DX E11.9 Freestyle Lancets 100 Each 11 12/03/19 24 Active empagliflozin (JARDIANCE) 25 mg tabIndications:M edication refill,Diabetes mellitus type 2 in nonobese ([facility]) Take 1 Tablet by mouth once daily 90 Tablet 1 01/16/20 24 Active lisinopriL-hydro chlorothiazide 20-12.5 mg per tabletIndication s:Medication refill,Essential hypertension,Laney betes mellitus type 2 in nonobese ([facility]) TAKE 1 TABLET BY MOUTH DAILY 90 Tablet 03/05/19 25 Active lisinopriL-hydro chlorothiazide 20-12.5 mg per tabletIndication s:Medication refill,Essential hypertension,Laney betes mellitus type 2 in nonobese ([facility]) TAKE 1 TABLET BY MOUTH DAILY 90 Tablet 1 11/25/19 24 025 Discontinued Active Problems Problem Noted Date Diagnosed Date Tachycardia 06/18/2023 Right knee injury 03/19/20232022 Overview (03/19/2023): Injured in 2022. Seeing [facility]. MRI of knee shows ACL proximal acute completed tear, mcl sprain, and further injuries. Seeing PT at the moment and will have surgery in the future. 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 07/22/2016 Overview (07/22/2016): As per notes from [facility] - Exam date 06/22/16 Other disorders of optic ner ve, not elsewhere classified, bilateral 07/22/2016 Overview (07/22/2016): As per notes from [facility] - Exam date 06/22/16 Myopia of both eyes with regular astigmatism 11/2016 Overview (07/22/2016): As per notes from [facility] - Exam date 06/22/16 Diabetes mellitus type 2 in nonobese ([facility]) 0 07/22/2016 Overview (07/22/2016): Lab Results Component Value Date HGBA1C 7.1 (H) 05/01/2016 HTN (hypertension) Hypercholesterolemia Resolved Problems Problem Noted Date Diagnosed Date Resolved Date Class 1 obesity in adult 08/29/202112/2023 Encounters Date Type Department Care Team Description 03/05/2024 10:20 AM EST Office Visit [facility] [address] [place] [phone] Damaris Marks Encounter for dental examination (Primary Dx) 03/05/2024 Travel 02/28/2024 2:00 PM EST / Visits [facility] [address] [place] [phone] Mihir Hennessy LCSW Posttraumatic stress disorder (Primary Dx); Moderate episode of recurrent major depressive disorder ([facility]) 02/28/2024 Travel 02/01/2024 1:20 PM EST Office Visit [facility] [address] [place] [phone] Genoveva Ramirez NP Primary hypertension (Primary Dx); Diabetes mellitus type 2 in nonobese ([facility]) 02/01/2024 Travel from Last 3 Months Immunizations Name Administration Dates Next Due DTAP (DAPTACEL),5 PERTUSSIS ANTIGENS ,06/04/1989,01/15/1987,06/17,04/01/1986 Flu, Preservative Free 03/19/2023,2020,11/16/2019,12/19,12/14/2017,05/01/2016 HEP B, PED/ADOL 05/07/2000,10/23/1997,09/22/1997 INFLUENZA, SEASONAL, INJECTABLE 11/23/2020 IPV 08/26/1991, 0,01/15/1987,06/17,04/01/1986 Influenza (FLUBLOK),recombinant,injectable,prese rvative Free 11/02/2023 MMR (MMR II/Priorix) 09/22/1997,04/12/1989 Mumps Rubella 04/12/1989 PFIZER COVID VACCINE, PURPLE CAP, 12+ 11/23/2020 ,02/20/2020,01/30/2020 PNEUMOCOCCAL CONJUGATE PCV 13 08/26/2021 PNEUMOCOCCAL POLYSACCHARIDE PPV23 04/20/2017 PPD 07/04/2016 Pfizer COVID-19 (Comirnaty), Mrna, Lnp-s, Pf, Cortez-sucrose, 30 Mcg/0.3 Ml, 12yr+ 03/19/2023 TDAP 05/10/2015 Td(adult),2 Lf tetanus toxoid,preservative free 05/10/2015,08/04/2002,08/26/1991 Family History Medical History Relation Name Comments Cancer Mother something in colon Depression Mother Diabetes Mother Heart Problems Mother Hypertension Mother Relation Name Status Comments Mother Social History Tobacco Use Types Packs/Day Years Used Date Smoking Tobacco: Never Passive Smoke Exposure: Never Smokeless Tobacco: Never Tobacco Cessation:Counseling Given: Not Answered Alcohol Use Standard Drinks/Week Comments Yes 0 (1 standard drink = 0.6 oz pure alcohol) 2 times a month - beer - : every other weekend Social Connections Answer Date Recorded Connectedness 1 06/05/2023 Financial Resource Strain Answer Date R ecorded Financial Resource Strain 2 2023 Stress Answer Date Recorded Stress 2 06/05/2023 Physical Activity Answer Date Recorded Physical Activity 0 10/06/2018 Food Insecurity Answer Date Recorded Food 2 06/05/2023 Transportation Needs Answer Date Record ed Transportation 1 06/05/2023 Housing Stability Answer Date Recorded Housing 2 06/05/2023 Safety and Environment Answer Date Freddy rded Safety 1 06/05/2023 Utilities Answer Date Recorded Utilities 2 06/05/2023 Employment Answer Date Recorded Stress 0 03/19/2023 Sex and Gender Information Value Date Recorded Sex Assigned at Male 01/03/2017 6:27 AM PST Legal Sex Male 7:30 AM PST Gender Identity Male 01/03/2017 6:27 AM PST Sexual Orientation Straight 01/03/2017 6: 27 AM PST COVID-19 Exposure Response Date Recorded In the last 10 days, have yo u been in contact with someone who was confirmed or suspected to have Coronavirus/COVID-19? No / Unsure 03/05/2024 10:11 AM EST Last Filed Vital Signs Vital Sign Reading Time Taken Comments Blood Pressure 118/70 02/01/2024 1:21 PM EST Pulse 83 02/01/2024 1:21 PM EST Temperature 36.9 ??C (98.5 ??F) 02/01/2024 1:21 PM ES T Respiratory Rate 18 02/01/2024 1:21 PM EST Oxygen Saturation 95% 02/01/2024 1:21 PM EST Inhaled Oxygen Concentration - - Weight 81.2 kg (179 lb) 02/01/2024 1:21 PM EST Height 167.6 cm (5' 6 ) 12/03/2023 8:48 AM EDT Body Mass Index 28.89 12/03/2023 8:48 AM EDT Plan of Treatment Upcoming Encounters Date Type Department Care Team (Late st Contact Info) Description 03/27/2024 2:45 PM EST / Visits [facility] [address] [place] [phone] Mihir Hennessy, AUTOMOTIVE HARDWARE ENGINEER [address] [place] [address] 05/01/2024 1:40 PM EDT Office Visit [facility] [address] [place] [phone] Mark Ordonez MD [address] [place] [address] 09/04/2024 1:00 PM EDT Office Visit [facility] [address] [place] [phone] Damaris Marks [address] [place] [address] Health Maintenance Due Date Last Done Comments Dental FMX/Pano 1984 Retinopathy Screening 1997 [id number] ( season) 2023 03/19/2023, 11/23/2020, 02/20/2020, Additional history exists Depression Monitoring 02/01/2024 11/02/2023 , 06/18/2023, 03/19/2023, Additional history exists Alcohol and Drug Screen 02/13/2024 11/02/19, 03/19/2023, 05/17/2022, Additional history exists Diabetes HbA1c 03/04/2024 12/03/2023, 06/12, 03/19/2023, Additional history exists Annual Preventive Care Visit 03/19/202406/2023, 10/05/2020, 09/13/2017 Diabetes Foot Exam 03/19/2024 03/19/2023, 0 04/20/2021, 03/23/2021 Dental Prophy 09/04/2024 03/05/2024, 08/12, 02/24/2023, Additional history exists Diabetes Microalbumin (w/Creatinine) 11/07/2024 11/08/2023, 06/29/2023, 10/05/2020, Additional history exists Lipid Screening 11/07/2024 11/08/2023, 03/15, 03/19/2023, Additional history exists Serum Creatinine 11/07/2024 11/08/2023, , 03/19/2023, Additional history exists Tobacco Screening 01/31/2025 02/01/2024 Dental BW 03/07/2025 03/05/2024, 08/12, 02/24/2023, Additional history exists Dental Examination 03/07/2025 03/05/2024, 0 08/31/2023, 02/24/2023, Additional history exists Dental Perio Charting 03/07/2025 03/05/2024 , 02/24/2023, 06/15/2022 Imm-DTaP/Tdap/Td (7 - Td or Tdap) 06/21/2026 06/21/2016, 05/10/2015, 05/10/2015, Additional history exists Imm-Pneumococcal (3 of 3 - P CV20 or PCV21) 2034 08/26/2021, 04/20/2017 Imm-Hepatitis B Completed 05/07/2000, 10/13, 09/22/1997 Hepatitis C Screening Completed 03/30/2021 Imm-Influenza Completed 11/02/2023, 06/2023, 11/11/2021, Additional history exists HIV Screening Completed 11/08/2023, 09/13, 09/14/2017 Procedures Procedure Name Priority Date/Time Associated Diagnosis Comments PERIODIC ORAL EVALUATION ESTABLISHED PATIENT Routine 03/05/2024 10:20 AM EST Encounter for dental examination DENTAL CASE MANAGEMENT - MOTIVATIONAL INTV Routine 03/05/2024 10:20 AM EST Encounter for dental examination PROPHYLAXIS - ADULT Routine 03/05/2024 1 0:20 AM EST Encounter for dental examination COMP PERIODONTAL EVALUATION - NEW/EST PATIENT Routine 03/05/2024 10:20 AM EST Encounter for dental examination BITEWINGS - FOUR RADIOGRAPHIC IMAGES Routine 03/05/2024 10:20 AM EST Encounter for dental examination CARIES RISK ASSESSMENT & DOC FINDING HIGH RISK Routine 03/05/2024 10:20 AM EST Encounter for dental examination NUTRITIONAL COUNSELING CONTROL OF DENTAL DISEASE Routine 03/05/2024 10:20 AM EST Encounter for dental examination ORAL HYGIENE INSTRUCTIONS Routine 03/05/2024 10:20 AM EST Encounter for dental examination ORAL CANCER SCREENING Routine 03/05/2024 10:20 AM EST Encounter for dental examination CASE PRESENTATION SUBS DTL & EXTENSIVE TX PLN Routine 03/05/2024 10:20 AM EST Encounter for dental examination GLYCOSYLATED (A1C) DEVICE (CLIA WAIVED) POCT Routine 12/03/2023 9:13 AM EDT Type 2 diabetes mellitus with hyperglycemia, without long-term current use of insulin ([facility]) HIV 1/2 AG & AB W/RFLX (4TH GEN) Routine 11/08/2023 9:48 AM EDT [place] fissure COMPREHENSIVE METABOLIC PANEL Routine 11/08/2023 9:48 AM EDT Diabetes mellitus type 2 in nonobese ([facility]) Primary hypertension LIPIDS W RFLX TO DIRECT LDL Routine 11/08/2023 9:48 AM EDT Diabetes mellitus type 2 in nonobese ([facility]) Hypercholesterolemia MICROALBUMIN/CREATINI NE RATIO, URINE, RANDOM Routine 11/08/2023 9:48 AM EDT Diabetes mellitus type 2 in nonobese ([facility]) REFERRAL TO PODIATRY Routine 04/20/2021 3:00 AM EST Diabetes mellitus type 2 in nonobese ([facility]) [place] of foot HEPATITIS C AB W/RFLX HCV RNA, QT, RT PCR Routine 03/30/2021 11:11 AM EST Screening for viral disease from Last 3 Months or Most Recently Relevant to Health Maintenance Results * (ABNORMAL) GLYCOSYLATED (A1C) DEVICE (CLIA WAIVED) POCT (12/03/2023 9:13 AM EDT) HGB A1C 7.5(A) 4.2 - 6.5 % [facility]- BACK OFFICE POCT Capillary Blood Blood / Unknown 9:13 AM EDT Elgin Tinajero PharmD LAB - BLOOD D RAW Final Result [facility]- BACK OFFICE POCT * HIV 1/2 AG & AB W/RFLX (4TH GEN) (11/08/2023 9:48 AM EDT) HIV AG/AB, 4TH GEN NON-REAC TIVE NON-REAC TIVE [facility] Comment: HIV-1 antigen and HIV-1/HIV-2 antibodies were not detected. There is no laboratory evidence of HIV infection. PLEASE NOTE: This information has been disclosed to you from records whose confidentiality may be protected by state law. ??If your state requires such protection, then the state law prohibits you from making any further disclosure of the information without the specific written consent of the person to whom it pertains, or as otherwise permitted by law. A general authorization for the release of medical or other information is NOT sufficient for this purpose. ?? For additional information please refer to http://GlobeImmune.Pure[employer] Solutions/faq/YLN462 (This link is being provided for informational/ educational purposes only.) The performance of this assay has not been clinically validated in patients less than 2 years old. Blood Blood / Unknown 11/08/2023 9 :48 AM EDT 11/08/2023 9:49 AM EDT Narrative [facility] - 11/09/2023 3:38 PM EDT FASTING:YES Ronny Martinez [facility] - BLOOD DRAW Final Resul t [facility] [address] [place] [id number], [email or web address] [address] [place] [phone] * (ABNORMAL) LIPIDS W RFLX TO DIRECT LDL (11/08/2023 9:48 AM EDT) CHOLESTEROL, TOTAL 145 <200 mg/dL [email or web address] HDL CHOLESTEROL 36(L) > OR = 40 mg/dL [email or web address] TRIGLYCERIDES 276(H) <150 mg/dL [email or web address] Comment: If a non-fasting specimen was collected, consider repeat triglyceride testing on a fasting specimen if clinically indicated. Jill et al. J. of Clin. Lipidol. 2015;9:129-169. LDL-CHOLESTEROL 73 99 mg/dL (calc) [email or web address] Comment: Reference range: <100 Desirable range <100 mg/dL for primary prevention; ?? <70 mg/dL for patients with CHD or diabetic patients with > or = 2 CHD risk factors. LDL-C is now calculated using the Long calculation, which is a validated novel method providing better accuracy than the Friedewald equation in the estimation of LDL-C. Mitchel CAMPBELL et al. LISA. 2013;310(19): 5435-1984 (http://education.Clue App/faq/GBA848) CHOL/HDLC RATIO 4.0 <5.0 (calc) [email or web address] NON-HDL CHOLESTEROL 109 <130 mg/dL (calc) [email or web address] Comment: For patients with diabetes plus 1 major ASCVD risk factor, treating to a non-HDL-C goal of <100 mg/dL (LDL-C of <70 mg/dL) is considered a therapeutic option. Blood Blood / Unknown 11/08/2023 9 :48 AM EDT 11/08/2023 9:49 AM EDT Narrative [facility] - 11/09/2023 3:38 PM EDT FASTING:YES [employer] [facility]INU[facility] - BLOOD DRAW Final Resul t Performing Organization Address [facility] de Phone Number [facility] [address] [place] [id number], [facility] [address] [address] * MICROALBUMIN/CREATININE RATIO, URINE, RANDOM (11/08/2023 9:48 AM EDT) CREATININE, RANDOM URINE 84 20 - 320 mg/dL [email or web address] MICROALBUMIN 0.7 mg/dL [place] [facility] Comment: Reference Range Not established MICROALBUMIN/CREA TININE RATIO, RANDOM URINE 8 <30 mg/g creat [email or web address] Comment: The ADA defines abnormalities in albumin excretion as follows: Albuminuria Category ?Result (mg/g creatinine) Normal to Mildly increased ?? <30 Moderately increased ? 30-299 Severely increased ? > OR = 300 The ADA recommends that at least two of three specimens collected within a 3-6 month period be abnormal before considering a patient to be within a diagnostic category. Urine Urine specimen / Unknown 11/08/2023 9:48 AM EDT 11/08/2023 9:49 AM EDT Narrative [employer] - 11/09/2023 3:38 PM EDT FASTING:YES [employer] CONTINUOUS PROCESS [facility] - NO BLOOD DRAW Final Re sult Performing Organization Address [facility] Co de Phone Number [facility] [address] [address], [facility] [address] [place] [address] * (ABNORMAL) COMPREHENSIVE METABOLIC PANEL (11/08/2023 9:48 AM EDT) GLUCOSE 131(H) 65 - 99 mg/dL [facility] Comment: ?Fasting reference interval For someone without known diabetes, a glucose value >125 mg/dL indicates that they may have diabetes and this should be confirmed with a follow-up test. UREA NITROGEN (BUN) 18 7 - 25 mg/dL [facility] CREATININE (blood) 1.01 0.60 - 1.26 mg/dL [facility] EGFR 97 > OR = 60 mL/min/1. 73m2 [facility] BUN/CREATININE RATIO SEE NOTE: [facility] Comment: ?? Not Reported: BUN and Creatinine are within ?? reference range. ? SODIUM 134(L) 135 - 146 mmol/L [facility] POTASSIUM 4.7 3.5 - 5.3 mmol/L [facility] CHLORIDE 98 98 - 110 mmol/L [facility] CARBON DIOXIDE 26 20 - 32 mmol/L [facility] CALCIUM 10.0 8.6 - 10.3 mg/dL [facility] PROTEIN, TOTAL 7.4 6.1 - 8.1 g/dL [facility] ALBUMIN 4.5 3.6 - 5.1 g/dL [facility] GLOBULIN 2.9 1.9 - 3.7 g/dL (calc) [facility] ALBUMIN/GLOBULI N RATIO 1.6 1.0 - 2.5 (calc) [facility] BILIRUBIN, TOTAL 0.9 0.2 - 1.2 mg/dL [facility] ALKALINE PHOSPHATASE 75 36 - 130 U/L [facility] AST 18 10 - 40 U/L [facility] ALT 42 9 - 46 U/L [facility] Blood Blood / Unknown 11/08/2023 9 :48 AM EDT 11/08/2023 9:49 AM EDT Narrative [employer] [facility] - 11/09/2023 3:38 PM EDT FASTING:YES Ronny Martinez CONTINUOUS PROCESS [facility] - BLOOD DRAW Edited Resu lt - Final [facility] [address] [address], [facility] [address] [place] [address] * REFERRAL TO PODIATRY (04/20/2021 3:00 AM EST) 04/20/2021 3:00 AM EST Marietta Jin CONTINUOUS PROCESS [facility] REFERRAL Edited Resul t - Final * HEPATITIS C AB W/RFLX HCV RNA, QT, RT PCR (03/30/2021 11:11 AM EST) HEPATITIS C ANTIBODY NON-REACT YONG NON-REACT YONG [facility] SIGNAL TO CUT-OFF 0.01 <1.00 [facility] Comment: HCV antibody was non-reactive. There is no laboratory evidence of HCV infection. In most cases, no further action is required. However, if recent HCV exposure is suspected, a test for HCV RNA (test code 53103) is suggested. For additional information please refer to http://education.PureEnergy Solutions/faq/MKZ96j2 (This link is being provided for informational/ educational purposes only.) Blood Blood / Unknown 03/30/2021 1 1:11 AM EST 03/30/2021 11:12 AM EST Narrative [facility] - 03/30/2021 10:24 PM EST FASTING:YES Marietta Jin CONTINUOUS PROCESS [facility] LAB - BLOOD DRAW Final Resul t [facility] [address] [address], [facility] [address] [address] from Last 3 Months or Most Recently Relevant to Health Maintenance Insurance [place] [facility] [address] [employer]CO Care Teams Dishwasher Preparer Relationship Specialty Start Date End Date Modesta Kaplan PA [address] [place] [address] PCP - General Primary Care 02/19/23
--- OUTSIDE RECORDS SUMMARY | 2024-03-11 09:55 | XMS_ITS | Continuity of Care Document ---
Author Organization [place] - [facility], SATYA [facility] 2nd floor Address [address] [place] [address] Assessment No assessment recorded. Plan of Treatment Reminders Order Date Submit Date Provider Last Modified By Organization Details Last Modified Time Details Appointments PT FOLLOW-U P 2024 05:30P M Efren Paredese, FEATHEREDGER AND REDUCER MACHINE Not available Not available Not available PT FOLLOW-U P 2024 05:30P M Efren Paredese, FEATHEREDGER AND REDUCER MACHINE Not available Not available Not available PT ANY 30 2024 06:00P M Benedict Sainz DPT Not available Not available Not available PT FOLLOW-U P 2024 04:00P M Efren Paredese, FEATHEREDGER AND REDUCER MACHINE Not available Not available Not available PT FOLLOW-U P 2024 06:00P M Efren Riveradge, FEATHEREDGER AND REDUCER MACHINE Not available Not available Not available PT FOLLOW-U P 2024 06:00P M Efren Paredese, FEATHEREDGER AND REDUCER MACHINE Not available Not available Not available NEW PATIENT 15 2024 01:45P M Bhanu Peter PA-C Not available Not available Not available PT FOLLOW-U P 2024 03:00P M Benedict Sainz DPT Not available Not available Not available Lab None recorded . Referral None recorded . Procedures None recorded . Surgeries None recorded . Imaging None recorded . Medication Orders None recorded . Patient TargetsNo targets recorded. Patient InstructionsNo instructions recorded. Reason for Referral None Reported. Procedures Surgical History Date Name Laterality Status Provider Name and Address Organization Details Recorded Time 4 70612 Therapeutic Exercise (1:1) completed Efren Hinojosa, FEATHEREDGER AND REDUCER MACHINE [address], [place], [address], [facility] 06/11/2023 05:36:49 4 44923 Therapeutic Exercise (1:1) completed Efren Hinojosa, REHANA [address], [place], [address], [facility] 06/07/2023 09:11:33 4 82606: Manual therapy completed Efren Hinojosa FEATHEREDGER AND REDUCER MACHINE [address], [place], [address], [facility] 06/07/2023 09:11:33 4 79067 Therapeutic Exercise (1:1) completed Benedict Sainz DPT [address], [place], [address], [facility] 05/31/2023 09:34:16 4 26933: Manual therapy completed Benedict Sainz DPT [address], [place], [address], [facility] 05/31/2023 09:34:16 4 69824 Therapeutic Exercise (1:1) completed Benedict Sainz DPT [address], [place], [address], [facility] 05/29/2023 14:47:53 4 35250: Manual therapy completed Benedict Sainz DPT [address], [place], [address], [facility] 05/29/2023 14:47:49 4 06855 Therapeutic Exercise (1:1) completed Efren Hinojosa PTA [address], [place], [address], [facility] 05/24/2023 13:24:59 4 78676: Manual therapy completed Efren Hinojosa PTA [address], [place], [address], [facility] 05/24/2023 13:24:59 4 91096 Therapeutic Exercise (1:1) completed Efren Hinojosa PTA [address], [place], [address], [facility] 05/24/2023 10:24:36 4 31294: Manual therapy completed Efren Hinojosa PTA [address], [place], [address], [facility] 05/24/2023 10:24:36 4 94565 Therapeutic Exercise (1:1) completed Benedict Sainz DPT [address], [place], [address], [facility] 05/17/2023 16:31:18 4 97358: Manual therapy completed Benedict Sainz DPT [address], [place], [address], [facility] 05/17/2023 16:31:10 4 89018 Therapeutic Exercise (1:1) completed Benedict Sainz DPT [address], [place], [address], [facility] 05/16/2023 18:59:28 4 08199: Manual therapy completed Benedict Sainz DPT [address], [place], [address], [facility] 05/16/2023 18:59:25 4 74027 Therapeutic Exercise (1:1) completed Benedict Sainz DPT [address], [place], [address], [facility] 05/15/2023 18:44:31 4 30702 Therapeutic Exercise (1:1) completed Efren Hinojosa FEATHEREDGER AND REDUCER MACHINE [address], [place], [address], [facility] 05/10/2023 13:12:17 4 35831: Manual therapy completed Efren Hinojosa, FEATHEREDGER AND REDUCER MACHINE [address], [place], [address], [facility] 05/10/2023 13:12:17 4 23929 Therapeutic Exercise (1:1) completed Efren Hinojosa, FEATHEREDGER AND REDUCER MACHINE [address], [place], [address], [facility] 05/09/2023 07:18:26 4 55029: Manual therapy completed Efren Hinojosa, FEATHEREDGER AND REDUCER MACHINE [address], [place], [address], [facility] 05/09/2023 07:18:26 4 80956 Therapeutic Exercise (1:1) completed Efren Hinojosa, FEATHEREDGER AND REDUCER MACHINE [address], [place], [address], [facility] 05/06/2023 15:27:07 4 39172: Manual therapy completed Efren Hinojosa, FEATHEREDGER AND REDUCER MACHINE [address], [place], [address], [facility] 05/06/2023 15:27:07 4 22668 Therapeutic Exercise (1:1) completed DORI FergusonT [address], [place], [address], [facility] 05/01/2023 14:39:13 4 83526: Manual therapy completed Benedict Sainz DPT [address], [place], [address], [facility] 05/01/2023 14:39:13 4 32314 Therapeutic Exercise (1:1) completed Efren Hinojosa, FEATHEREDGER AND REDUCER MACHINE [address], [place], [address], [facility] 04/26/2023 01:40:07 4 05444: Manual therapy completed Efren Hinojosa, FEATHEREDGER AND REDUCER MACHINE [address], [place], [address], [facility] 04/26/2023 01:41:24 Imaging Results None recorded. Procedure Notes None recorded. Medical Equipment None Reported. Allergies Allergen ID Allergen Name Allergen Category Reaction Reaction Severity Criticality Documentation Date Start Date Code Code System Note Provider Name and Address Organization Details Recorded Time 621907 aspirin medicatio n Not available Not available Not available 05/22/2023 1191 RxNorm VJ ARMASDEN [facility] 4 13:09:04 140146 lactose food,medi cation Not available Not available Not available 05/22/2023 6211 RxNorm VJONDINA ARMASDEN [facility] 4 13:09:13 024460 Product containin g penicilli n and antibioti c (product) medicatio n Not available Not available Not available 05/22/2023 67310 05 SNOMED VJONDINA ARMASDEN [facility] 4 [...] and Address Organization Details Last Updated DateTime 03/07/2024 167.64 cm 30.7 kg/m2 79947.55 g KHARI AG [place] [facility] [place] 03/07/2024 12:58:41 Social History None recorded. Functional Status None recorded. Mental Status None recorded. Family History Nothing Reported. Medical History Condition Response Allergies/Hayfever N Coronary Artery Disease N Anxiety/Depression N Emphysema N Thyroid Problems N COPD N Pacemaker N Kidney/Bladder Problems N Anemia N Vascular Disease N Heart Attack ([place]) N Gastrointestinal Disease N Diabetes Y Autoimmune [...] SNOMED-CT Code Diagnosis ICD10 Code Diagnosis Note [id number] Oni Stovall, PT [facility] [address] [place] [address] 02/07/2024 11:26:12 02/07/2024 12:23:40 Partial tear, knee, anterior cruciate ligament 518605214 S83.511A [id number] Oni Stovall, PT [facility] - [facility] [address] [place] [address] 02/14/2024 16:56:41 02/14/2024 17:25:50 Partial tear, knee, anterior cruciate ligament 921569163 S83.511A [id number] Benedict Sainz, DPT [facility] - [facility] [address] [place] [address] 02/18/2024 14:36:18 02/18/2024 15:42:14 Partial tear, knee, anterior cruciate ligament 039772294 S83.511A [id number] Benedict Sainz, DPT [facility] - [facility] [address] [place] [address] 02/22/2024 14:00:33 02/22/2024 14:31:27 Partial tear, knee, anterior cruciate ligament 697670760 S83.511A [id number] Dennis Stern, PT [facility]YA - [facility] [address] [place] [address] 02/25/2024 11:57:43 02/25/2024 17:45:15 Partial tear, knee, anterior cruciate ligament 968456003 S83.511A [id number] Oni Stovall, PT [facility] - [facility] [address] [place] [address] 03/05/2024 15:54:07 03/05/2024 17:00:19 Partial tear, knee, anterior cruciate ligament 414125099 S83.511A [id number] Bhanu Peter PA-C [facility] 2[address] [place] [address] 03/07/2024 12:55:25 03/08/2024 08:30:30 Complete tear, knee, anterior cruciate ligament 378950642 S83.511D [id number] Oni Stovall, PT [facility] - [facility] [address] [place] [address] 03/07/2024 14:30:24 03/07/2024 15:44:26 Partial tear, knee, anterior cruciate ligament 004010568 S83.511A Health Concerns Section Related Observation LastModified by Organization Detai ls LastModified Time None Recorded Concern Status LastModified by Organization Details LastModified Time None Recorded Payers Encounter Date Sequence Insurance Name Policy Number Policy Cee Covered Member ID Cee Member ID Guarantor Name 03/07/2024 [employer] [facility] Luis Caal Notes Date Note Type Note Provider Name and Address Organization Details Recorded Time 03/07/2024 text/html I am seeing the patient today under the supervision of Dr. Daniels who was available but who did not see the patient. HPI: Parrish returns for follow-up evaluation regarding his right knee. He is now over 10 months status post ACL reconstruction. Date of surgery 04/13/2023. He has been improving and doing a home exercise program. He reports no pain at this time. He remains working light duty status. Does not feel that he has enough strength and stability of the need to return to full duty. Past family, medical, social history and review of systems has been reviewed, updated and signed by me and is located in the patient's chart. Examination: The patient is well appearing and in no apparent distress. Alert and oriented x3. Gait is symmetric. Right knee has intact stability. Negative Petey. Negative pivot shift. There is quadricep atrophy of 2 to 3 cm and weakness with single-leg stance and squatting maneuver. Intact full range of motion 0 to 135 degrees. Peripheral, vascular, lymphatic examination, skin, neurological, coordination, reflexes, sensation are overall within normal limits. Impression: Status post right knee ACL reconstruction improving Plan: Discussion with Luis with regard to his knee. He has made a nice recovery but still has incomplete conditioning and strength. Recommendation is for continued home exercise program and I instructed him in some balance activities today. Proprioception is needed. Work note given to continue light duty work with max lifting of 20 pounds at this time. No kneeling or squatting and limited stairs. Recheck arranged in 7 to 8 weeks for hopefully final reevaluation and clearance for full duty. He is comfortable with this recommendation and plan Bhanu Peter PA-C [address], [place], [address], [facility] 03/08/2024 08:30:29 03/07/2024 text/html Patient reports missed last session due to being sick. Feeling well today, no pain at rest, min fatigue due to being bed ridden while sick. Efren Hinojosa, FEATHEREDGER AND REDUCER MACHINE [address], [place], [address], [facility] 03/09/2024 22:24:35
--- OUTSIDE RECORDS SUMMARY | 2024-03-11 09:55 | XMS_ITS | Continuity of Care Document ---
Author Organization [place] - [facility], SATYA [facility] Address [address] [place] [address] Assessment Encounter Date Assessment Date Assessment LastModified by Organization Details LastModified Time 02/22/2024 02/22/2024 Assessment: Patient continues to demonstrate asymmetry SL strength and jumping ability. Weak eccentric quad control in R LE. Plan: Continue PT 2x/week to improve jumping, strengthening and stabilization program. [email or web address] Not available 02/22/2024 18:30:56 Plan of Treatment Reminders Order Date Submit Date Provider Last Modified By Organization Details Last Modified Time Details Appointments PT FOLLOW-U P 2024 05:30P M Efren Riveradge, COKE CRANE OPERATOR Not available Not available Not available PT FOLLOW-U P 2024 05:30P M Damieana Fudge, COKE CRANE OPERATOR Not available Not available Not available PT ANY 30 2024 06:00P M Benedict Sainz DPT Not available Not available Not available PT FOLLOW-U P 2024 04:00P M Efren Riveradge, COKE CRANE OPERATOR Not available Not available Not available PT FOLLOW-U P 2024 06:00P M Damkelechiana Fudge, COKE CRANE OPERATOR Not available Not available Not available PT FOLLOW-U P 2024 06:00P M Damieana Fudge, COKE CRANE OPERATOR Not available Not available Not available NEW [...] and Address Organization Details Recorded Time 4 81481 Therapeutic Exercise (1:1) completed Efren Hinojosa, REHANA [address], [place], [address], [facility] 06/11/2023 05:36:49 4 61324 Therapeutic Exercise (1:1) completed Efren Hinojosa, COKE CRANE OPERATOR [address], [place], [address], [facility] 06/07/2023 09:11:33 4 85356: Manual therapy completed Efren Hinojosa PTA [address], [place], [address], [facility] 06/07/2023 09:11:33 4 10708 Therapeutic Exercise (1:1) completed Benedict Sainz DPT [address], [place], [address], [facility] 05/31/2023 09:34:16 4 34396: Manual therapy completed Benedict Sainz DPT [address], [place], [address], [facility] 05/31/2023 09:34:16 4 90476 Therapeutic Exercise (1:1) completed Benedict Sainz DPT [address], [place], [address], [facility] 05/29/2023 14:47:53 4 97865: Manual therapy completed Benedict Sainz DPT [address], [place], [address], [facility] 05/29/2023 14:47:49 4 44966 Therapeutic Exercise (1:1) completed Efren Hinojosa PTA [address], [place], [address], [facility] 05/24/2023 13:24:59 4 33898: Manual therapy completed Efren Hinojosa COKE CRANE OPERATOR [address], [place], [address], [facility] 05/24/2023 13:24:59 4 70959 Therapeutic Exercise (1:1) completed Efren Hinojosa COKE CRANE OPERATOR [address], [place], [address], [facility] 05/24/2023 10:24:36 4 72789: Manual therapy completed Efren Hinojosa PTA [address], [place], [address], [facility] 05/24/2023 10:24:36 4 73190 Therapeutic Exercise (1:1) completed Benedict Sainz DPT [address], [place], [address], [facility] 05/17/2023 16:31:18 4 50606: Manual therapy completed Benedict Sainz DPT [address], [place], [address], [facility] 05/17/2023 16:31:10 4 37874 Therapeutic Exercise (1:1) completed Benedict Sainz DPT [address], [place], [address], [facility] 05/16/2023 18:59:28 4 08307: Manual therapy completed Benedict Sainz DPT [address], [place], [address], [facility] 05/16/2023 18:59:25 4 16508 Therapeutic Exercise (1:1) completed Benedict Sainz DPT [address], [place], [address], [facility] 05/15/2023 18:44:31 4 63606 Therapeutic Exercise (1:1) completed Efren Hinojosa, COKE CRANE OPERATOR [address], [place], [address], [facility] 05/10/2023 13:12:17 4 94309: Manual therapy completed Efren Hinojosa, COKE CRANE OPERATOR [address], [place], [address], [facility] 05/10/2023 13:12:17 4 64631 Therapeutic Exercise (1:1) completed Efren Hinojosa, COKE CRANE OPERATOR [address], [place], [address], [facility] 05/09/2023 07:18:26 4 50357: Manual therapy completed Efren Hinojosa, COKE CRANE OPERATOR [address], [place], [address], [facility] 05/09/2023 07:18:26 4 69554 Therapeutic Exercise (1:1) completed Efren Hinojosa, COKE CRANE OPERATOR [address], [place], [address], [facility] 05/06/2023 15:27:07 4 88749: Manual therapy completed Efren Hinojosa, COKE CRANE OPERATOR [address], [place], [address], [facility] 05/06/2023 15:27:07 4 52455 Therapeutic Exercise (1:1) completed DORI FergusonT [address], [place], [address], [facility] 05/01/2023 14:39:13 4 14835: Manual therapy completed DORI FergusonT [address], [place], [address], [facility] 05/01/2023 14:39:13 4 70772 Therapeutic Exercise (1:1) completed Efren Hinojosa, COKE CRANE OPERATOR [address], [place], [address], [facility] 04/26/2023 01:40:07 4 69080: Manual therapy completed Efren Hinojosa, COKE CRANE OPERATOR [address], [place], [address], [facility] 04/26/2023 01:41:24 Imaging Results None recorded. Procedure Notes None recorded. Medical Equipment None Reported. Allergies Allergen ID Allergen Name Allergen Category Reaction Reaction Severity Criticality Documentation Date Start Date Code Code System Note Provider Name and Address Organization Details Recorded Time 100291 aspirin medicatio n Not available Not available Not available 05/22/2023 1191 RxNorm VJ BAZAN [facility] 4 13:09:04 047513 lactose food,medi cation Not available Not available Not available 05/22/2023 6211 RxNorm VJ BAZAN [facility] 4 13:09:13 656247 Product containin g penicilli n and antibioti c (product) medicatio n Not available Not available Not available 05/22/2023 81104 05 SNOMED VJ BAZAN [facility] 4 13:09:27 Medications Name Sig Start [...] Problems N Vascular Disease N Heart Attack ([place]) N Gastrointestinal Disease N Diabetes Y Autoimmune [...] SNOMED-CT Code Diagnosis ICD10 Code Diagnosis Note [id number] Benedict Sainz, DPT [facility] [address] [place] [address] 01/22/2024 09:57:34 01/22/2024 10:48:44 Partial tear, knee, anterior cruciate ligament 763519179 S83.511A [id number] Benedict Sainz, DPT [facility] [address] [place] [address] 01/24/2024 15:30:54 01/24/2024 16:15:49 Partial tear, knee, anterior cruciate ligament 149640647 S83.511A [id number] Oni Stovall, PT [facility] [address] [place] [address] 01/30/2024 15:55:06 01/30/2024 17:02:35 Partial tear, knee, anterior cruciate ligament 640434640 S83.511A [id number] Harvey Urrutia MD [facility] [address] [place] [address] 01/31/2024 13:17:10 02/21/2024 13:55:48 Complete tear, knee, anterior cruciate ligament 190741493 S83.511D [id number] Oni Vivisara, PT [facility] [address] [place] [address] 02/01/2024 15:22:40 02/01/2024 16:15:40 Partial tear, knee, anterior cruciate ligament 794189432 S83.511A [id number] Onied Trinidadsara, PT [facility] [address] [place] [address] 02/07/2024 11:26:12 02/07/2024 12:23:40 Partial tear, knee, anterior cruciate ligament 676936085 S83.511A [id number] Oni Stovall, PT [facility] - [facility] [address] [place] [address] 02/14/2024 16:56:41 02/14/2024 17:25:50 Partial tear, knee, anterior cruciate ligament 999905038 S83.511A [id number] Benedict Sainz DPT [facility] - [facility] [address] [place] [address] 02/18/2024 14:36:18 02/18/2024 15:42:14 Partial tear, knee, anterior cruciate ligament 199304716 S83.511A [id number] Benedict Sainz DPT [facility] - [facility] [address] [place] [address] 02/22/2024 14:00:33 02/22/2024 14:31:27 Partial tear, knee, anterior cruciate ligament 788638031 S83.511A Health Concerns Section Related Observation LastModified by Organization Detai ls LastModified Time None Recorded Concern Status LastModified by Organization Details LastModified Time None Recorded Payers Encounter Date Sequence Insurance Name Policy Number Policy Cee Covered Member ID Cee Member ID Guarantor Name 02/22/2024 [employer] Luis Caal Notes Date Note Type Note Provider Name and Address Organization Details Recorded Time 02/22/2024 text/html Patient reports still feeling weak with his leg 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 Benedict Sainz DPT [address], [place], [address], [facility] 02/22/2024 18:31:36
--- OUTSIDE RECORDS SUMMARY | 2024-03-11 09:55 | XMS_ITS | Encounter Summary ---
Author Organization [facility] Address [address] [place] [address] Care Team Providers Care Convention Planner Name Role Phone Modesta Kaplan Primary Care Provider [phone] Encounter Details Date Type Department Care Team (Latest Contact Info) Description 02/28/2024 Travel Social History Tobacco Use Types Packs/Day Years Used Date Smoking Tobacco: Never Passive Smoke Exposure: Never Smokeless Tobacco: Never Alcohol Use Standard Drinks/Week Comments Yes 0 [...] suspected to have Coronavirus/COVID-19? No / Unsure 02/28/2024 1:57 PM EST documented as of this encounter Plan of Treatment Upcoming Encounters Date Type Department Care Team (Late st Contact Info) Description 03/27/2024 2:45 PM EST BH/MH Visits [facility] [address] [place] [phone] Mihir Hennessy LCSW [address] [place] [address] 05/01/2024 1:40 PM EDT Office Visit [facility] [address] [place] [phone] Mark Ordonez MD [address] [place] [address] 09/04/2024 1:00 PM EDT Office Visit [facility] [address] [place] [phone] Damaris Marks [address] [place] [address] documented as of this encounter Visit Diagnoses Not on filedocumented in this encounter Additional Health Concerns Assessment Noted Time PHQ-9 Depression Total Score: 0 11/02/19 24 1:20 PM PDT documented as of this encounter Care Teams Convention Planner Relationship Specialty Start Date End Date Modesta Kaplan PA [facility] [place] [address] PCP - General Primary Care 02/19/23 documented as of this encounter
--- OUTSIDE RECORDS SUMMARY | 2024-03-11 09:55 | XMS_ITS | Encounter Summary ---
Author Organization [facility] Address [address] [place] [address] Care Team Providers Care Tube Bending Machine Operator Name Role Phone Modesta Kaplan Primary Care Provider Reason for Visit * Reason Comments Individual Counseling Encounter Details Date Type Department Care Team (Latest Contact Info) Description 02/28/2024 2:00 PM EST / Visits [address] [address] Mihir Hennessy LCSW [address] [place] [address] Posttraumatic stress disorder (Primary Dx); Moderate episode of recurrent major depressive disorder (HCC-CMS) Social History Tobacco Use Types Packs/Day Years [...] Recorded In the last 10 days, have denzel u been in contact with someone who was confirmed or suspected to have Coronavirus/COVID-19? No / Unsure 02/28/2024 1:57 PM EST documented as of this encounter Plan of Treatment Upcoming Encounters Date Type Department Care Team (Late st Contact Info) Description 03/27/2024 2:45 PM EST / Visits [facility] [address] [place] [phone] Mihir Hennessy LCSW [address] [place] [address] 05/01/2024 1:40 PM EDT Office Visit [address] [phone] Mark Ordonez MD [address] [place] [address] 09/04/2024 1:00 PM EDT Office Visit [facility] [address] [place] [phone] Damaris Marks [address] [place] [address] documented as of this encounter Visit Diagnoses Diagnosis Posttraumatic stress disorder- Primary 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
[2024-03-11] MEDS: Lactated Ringers 1,000 ML 100 ML IVCONT (09:56)
--- OUTSIDE RECORDS SUMMARY | 2024-03-11 09:56 | XMS_ITS | Encounter Summary ---
Author Organization [facility] Address [address] [place] [address] Care Team Providers Care Log Marker Name Role Phone Modesta Kaplan Primary Care Provider [phone] Reason for Visit * Reason Comments Dental Hygiene/ Preventive RECALL Encounter Details Date Type Department Care Team ([facility] st Contact Info) Description 03/05/2024 10:20 AM EST Office Visit [facility] [address] [place] [phone] Damaris Marks [address] [place] [address] Encounter for dental examination (Primary Dx) Social History Tobacco Use Types Packs/Day Years [...] No / Unsure 03/05/2024 10:11 AM EST documented as of this encounter Progress Notes * Damaris Marks - 03/05/2024 1:22 PM EST Prophy Subjective Luis Landrum, 38 year old male, presents alone for [place]. 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 Assessment EOE/IOE/Oral Cancer Screen: WNL Oral Hygiene: Fair Home Care: Toothbrush 1 x per day, Floss 1 x per day Fluoride exposure: toothpaste Plaque: Generalized Moderate Calculus: Generalized Slight Gingival Description: Erythematous Inflammation: Generalized Slight Recession: None Bone Loss: None Staining: None PSR: Yes Periodontal Screening Full Perio Charting completed: Yes Dx: Z01.20 Encounter for dental examination (primary encounter diagnosis) DH Dx Details: DR BEDOYA EXAM Plan Recall Informed Consent/PARQ (Procedure, Alternatives, Risks, Questions): Patient confirms informed consent using PARQ. Dental procedures in this visit D9450 - CASE PRESENTATION SUBS DTL & EXTENSIVE TX PLN (Completed) Service provider: Damaris Marks [place] provider: Gayle Bedoya DDS TX993 - ORAL CANCER SCREENING (Completed) Service provider: Damaris Marks [place] provider: Gayle Bedoya DDS D1330 - ORAL HYGIENE INSTRUCTIONS (Completed) Service provider: Damaris Marks [place] provider: Gayle Bedoya DDS D1310 - NUTRITIONAL COUNSELING CONTROL OF DENTAL DISEASE (Completed) Service provider: Damaris Marks [place] provider: Gayle Bedoya DDS D0603 - CARIES RISK ASSESSMENT & DOC FINDING HIGH RISK (Completed) Service provider: Damaris Marks [place] provider: Gayle Bedyoa DDS D0274 - BITEWINGS - FOUR RADIOGRAPHIC IMAGES (Completed) Service provider: Damaris Ochoa provider: Gayle Bedoya DDS D0180 - COMP PERIODONTAL EVALUATION - NEW/EST PATIENT (Completed) Service provider: Damaris Marks Billing provider: Gayle Bedoya DDS D1110 - PROPHYLAXIS - ADULT (Completed) Service provider: Damaris Marks Billing provider: Gayle Bedoya DDS D9993 - DENTAL CASE MANAGEMENT - MOTIVATIONAL INTV (Completed) Service provider: Damaris Marks Billing provider: Gayle Bedoya DDS D0120 - PERIODIC ORAL EVALUATION ESTABLISHED PATIENT (Completed) Service provider: Damaris Marks Billing provider: Gayle Bedoya DDS Prophy completed with ultrasonic respooler OHI & Nutrition counseling provided, discussed: Gingivitis Post-Op Information Given: verbal Referral: No orders of the following type(s) were placed in this encounter: Referral. Rx: No orders of the defined types were placed in this encounter. Behavior: Excellent [place]: Recall documented in this encounter Miscellaneous Notes * Patient Instructions - Damaris Marks - 03/05/2024 10:47 AM EST If you are not able to keep your appointment please call 24-48 hours before your appointment to cancel or reschedule. documented in this encounter Plan of Treatment Upcoming Encounters Date Type Department Care Team (Late st Contact Info) Description 03/27/2024 2:45 PM EST BH/MH Visits [facility] [address] [place] [phone] Mihir Hennessy LCSW [address] [place] [address] 05/01/2024 1:40 PM EDT Office Visit [facility] [address] [place] [phone] Mark Ordonez MD [address] [place], [place] [phone] 09/04/2024 1:00 PM EDT Office Visit [facility] [address] [place] [address] Kendrick Damaris [address] [place] [address] Scheduled Orders Name Type Priority Associated Diagnoses Order Schedule INTRAORAL - COMP SERIES OF RADIOGRAPHIC IMAGES Dental Procedures Routine 1 Occurren warren starting 03/05/2024 PANORAMIC RADIOGRAPHIC IMAGE Dental Procedures Routine 1 Occurrenc es starting 03/05/2024 documented as of this encounter Procedures Procedure Name Priority Date/Time Associated Diagnosis Comments ORAL CANCER SCREENING Routine 03/05/2024 10:20 AM EST Encounter for dental examination DENTAL CASE MANAGEMENT - MOTIVATIONAL INTV Routine 03/05/2024 10:20 AM EST Encounter for dental examination CARIES RISK ASSESSMENT & DOC FINDING HIGH RISK Routine 03/05/2024 10:20 AM EST Encounter for dental examination CASE PRESENTATION SUBS DTL & EXTENSIVE TX PLN Routine 03/05/2024 10:20 AM EST Encounter for dental examination COMP PERIODONTAL EVALUATION - NEW/EST PATIENT Routine 03/05/2024 10:20 AM EST Encounter for dental examination ORAL HYGIENE INSTRUCTIONS Routine 03/05/2024 10:20 AM EST Encounter for dental examination NUTRITIONAL COUNSELING CONTROL OF DENTAL DISEASE Routine 03/05/2024 10:20 AM EST Encounter for dental examination PROPHYLAXIS - ADULT Routine 03/05/2024 1 0:20 AM EST Encounter for dental examination BITEWINGS - FOUR RADIOGRAPHIC IMAGES Routine 03/05/2024 10:20 AM EST Encounter for dental examination PERIODIC ORAL EVALUATION ESTABLISHED PATIENT Routine 03/05/2024 10:20 AM EST Encounter for dental examination documented in this encounter Visit Diagnoses Diagnosis Encounter for dental examination- Primary Dental examination documented in this encounter Additional Health Concerns Assessment Noted Time PHQ-9 Depression Total Score: 0 11/02/19 1:20 PM PDT documented as of this encounter Care Teams Log Marker Relationship Specialty Start Date End Date Modesta Kaplan PA [address] [place] [address] PCP - General Primary Care 02/19/23 documented as of this encounter
--- OUTSIDE RECORDS SUMMARY | 2024-03-11 09:56 | XMS_ITS | Continuity of Care Document ---
Author Organization [place] - [facility], SATYA Smith PT Address [address] [place] [address] Assessment Encounter Date Assessment Date Assessment LastModified by Organization Details LastModified Time 03/07/2024 03/07/2024 Assessment: Patient continues to demonstrate very deconditioned asymmetry SL strength and jumping ability. Weak eccentric quad control in R LE. Improved balance with lunge walking. Plan: Continue PT 2x/week to improve jumping, strengthening and stabilization program. [email or web address] Not available 03/09/2024 22:24:14 Plan of Treatment Reminders Order Date Submit Date Provider Last Modified By Organization Details Last Modified Time Details Appointments PT FOLLOW-U P 2024 05:30P M Damkelechiana Fudge, BULB INSPECTOR Not available Not available Not available PT FOLLOW-U P 2024 05:30P M Damieana Fudge, BULB INSPECTOR Not available Not available Not available PT ANY 30 2024 06:00P M DORI FergusonT Not available Not available Not available PT FOLLOW-U P 2024 04:00P M Damieana Fudge, BULB INSPECTOR Not available Not available Not available PT FOLLOW-U P 2024 06:00P M Damieana Fudge, BULB INSPECTOR Not available Not available Not available PT FOLLOW-U P 2024 06:00P M Damieana Fudge, BULB INSPECTOR Not available Not available Not available NEW [...] and Address Organization Details Recorded Time 4 23340 Therapeutic Exercise (1:1) completed Efren Hinojosa, BULB INSPECTOR [address], [place], [address], [facility] 06/11/2023 05:36:49 4 07657 Therapeutic Exercise (1:1) completed Efren Hinojosa, BULB INSPECTOR [address], [place], [address], [facility] 06/07/2023 09:11:33 4 84966: Manual therapy completed Efren Hinojosa, BULB INSPECTOR [address], [place], [address], [facility] 06/07/2023 09:11:33 4 42285 Therapeutic Exercise (1:1) completed Benedict Sainz DPT [address], [place], [address], [facility] 05/31/2023 09:34:16 4 38557: Manual therapy completed Benedict Sainz DPT [address], [place], [address], [facility] 05/31/2023 09:34:16 4 97346 Therapeutic Exercise (1:1) completed Benedict Sainz DPT [address], [place], [address], [facility] 05/29/2023 14:47:53 4 60652: Manual therapy completed Benedict Sainz DPT [address], [place], [address], [facility] 05/29/2023 14:47:49 4 37390 Therapeutic Exercise (1:1) completed Efren Hinojosa, BULB INSPECTOR [address], [place], [address], [facility] 05/24/2023 13:24:59 4 59978: Manual therapy completed Efren Hinojosa, BULB INSPECTOR [address], [place], [address], [facility] 05/24/2023 13:24:59 4 50287 Therapeutic Exercise (1:1) completed Efren Hinojosa, BULB INSPECTOR [address], [place], [address], [facility] 05/24/2023 10:24:36 4 28182: Manual therapy completed Efren Hinojosa, BULB INSPECTOR [address], [place], [address], [facility] 05/24/2023 10:24:36 4 99149 Therapeutic Exercise (1:1) completed Benedict Sainz DPT [address], [place], [address], [facility] 05/17/2023 16:31:18 4 73409: Manual therapy completed Benedict Sainz DPT [address], [place], [address], [facility] 05/17/2023 16:31:10 4 50312 Therapeutic Exercise (1:1) completed Benedict Sainz DPT [address], [place], [address], [facility] 05/16/2023 18:59:28 4 93178: Manual therapy completed Benedict Sainz DPT [address], [place], [address], [facility] 05/16/2023 18:59:25 4 10705 Therapeutic Exercise (1:1) completed Benedict Sainz DPT [address], [place], [address], [facility] 05/15/2023 18:44:31 4 93262 Therapeutic Exercise (1:1) completed Efren Hinojosa, BULB INSPECTOR [address], [place], [address], [facility] 05/10/2023 13:12:17 4 74451: Manual therapy completed Efren Hinojosa BULB INSPECTOR [address], [place], [address], [facility] 05/10/2023 13:12:17 4 32029 Therapeutic Exercise (1:1) completed Efren Hinojosa BULB INSPECTOR [address], [place], [address], [facility] 05/09/2023 07:18:26 4 47600: Manual therapy completed Efren Hinojosa BULB INSPECTOR [address], [place], [address], [facility] 05/09/2023 07:18:26 4 90255 Therapeutic Exercise (1:1) completed Efren Hinojosa PTA [address], [place], [address], [facility] 05/06/2023 15:27:07 4 82058: Manual therapy completed Efren Hinojosa PTA [address], [place], [address], [facility] 05/06/2023 15:27:07 4 08368 Therapeutic Exercise (1:1) completed Benedict Sainz DPT [address], [place], [address], [facility] 05/01/2023 14:39:13 4 53974: Manual therapy completed Benedict Sainz DPT [address], [place], [address], [facility] 05/01/2023 14:39:13 4 09124 Therapeutic Exercise (1:1) completed Efren Riverasimrandaria, BULB INSPECTOR [address], [place], [address], [facility] 04/26/2023 01:40:07 4 09540: Manual therapy completed Efren Riveragill, BULB INSPECTOR [address], [place], [address], [facility] 04/26/2023 01:41:24 Imaging Results None recorded. Procedure Notes None recorded. Medical Equipment None Reported. Allergies Allergen ID Allergen Name Allergen Category Reaction Reaction Severity Criticality Documentation Date Start Date Code Code System Note Provider Name and Address Organization Details Recorded Time 237141 aspirin medicatio n Not available Not available Not available 05/22/2023 1191 [facility] 13:09:04 683029 lactose food,medi cation Not available Not available Not available 05/22/2023 6211 [facility] 4 13:09:13 317687 Product containin g penicilli n and antibioti c (product) medicatio n Not available Not available Not available 05/22/2023 64395 05 [facility] 4 13:09:27 Medications Name Sig Start Date [...] Updated DateTime 03/07/2024 167.64 cm 30.7 kg/m2 84031.55 g KHARI AG [place] [facility] 03/07/2024 12:58:41 Social History None recorded. Functional Status None recorded. Mental Status None recorded. Family History Nothing Reported. Medical History Condition Response Allergies/Hayfever N Coronary Artery Disease N Anxiety/Depression N Emphysema N Thyroid Problems N COPD N Pacemaker N Kidney/Bladder Problems N Anemia N Vascular Disease N Gastrointestinal Disease N Heart Attack ([place]) N Diabetes Y Autoimmune disease N Bleeding [...] [facility] [address] [place] [address] 02/07/2024 11:26:12 02/07/2024 12:23:40 Partial tear, knee, anterior cruciate ligament 972352361 S83.511A [id number] Onied Trinidadsara, PT [facility] [address] [place] [address] 02/14/2024 16:56:41 02/14/2024 17:25:50 Partial tear, knee, anterior cruciate ligament 846685689 S83.511A [id number] Benedict Sainz, DPT [facility] [address] [place] [address] 02/18/2024 14:36:18 02/18/2024 15:42:14 Partial tear, knee, anterior cruciate ligament 262824389 S83.511A [id number] Benedict Sainz, DPT [facility] [address] [place] [address] 02/22/2024 14:00:33 02/22/2024 14:31:27 Partial tear, knee, anterior cruciate ligament 262893958 S83.511A [id number] Dennis Stern, PT [facility] [address] [place] [address] 02/25/2024 11:57:43 02/25/2024 17:45:15 Partial tear, knee, anterior cruciate ligament 209591531 S83.511A [id number] Onied Trinidadsara, PT [facility] [address] [place] [address] 03/05/2024 15:54:07 03/05/2024 17:00:19 Partial tear, knee, anterior cruciate ligament 036193811 S83.511A [id number] TINO Chandler [address] [place] [address] 03/07/2024 12:55:25 03/08/2024 08:30:30 Complete tear, knee, anterior cruciate ligament 080312615 S83.511D [id number] Oni Stovall, PT [facility] [address] [place] [address] 03/07/2024 14:30:24 03/07/2024 15:44:26 Partial tear, knee, anterior cruciate ligament 470630861 S83.511A Health Concerns Section Related Observation LastModified [...] recommendation and plan Bhanu Peter PA-C [address] [facility] [address], [place], [address], [facility] 03/08/2024 08:30:29 03/07/2024 text/html Patient reports missed last session due to being sick. Feeling well today, no pain at rest, min fatigue due to being bed ridden while sick. Efren Hinojosa, BULB INSPECTOR [address] [facility] [address], [place], [address], [facility] 03/09/2024 22:24:35
--- OUTSIDE RECORDS SUMMARY | 2024-03-11 09:56 | XMS_ITS | Encounter Summary ---
Author Organization [facility] Address [address] [place] [address] Care Team Providers Care Vp Product Marketing Name Role Phone Modesta Kaplan Primary Care Provider [phone] Encounter Details Date Type Department Care Team (Latest Contact Info) Description 03/05/2024 Travel Social History Tobacco Use Types Packs/Day [...] AM EST documented as of this encounter Plan of Treatment Upcoming Encounters Date Type Department Care Team (Late st Contact Info) Description 03/27/2024 2:45 PM EST BH/MH Visits [facility] [address] [place] [address] Mihir Hennessy LCSW [address] [place] [address] 05/01/2024 1:40 PM EDT Office Visit [facility] [address] [place] [address] Mark Ordonez MD [address] [place] [address] 09/04/2024 1:00 PM EDT Office Visit [facility] [address] [place] [address] Damaris Marks [address] [place] [address] documented as of this encounter Visit Diagnoses Not on filedocumented in this encounter Additional Health Concerns Assessment Noted Time PHQ-9 Depression Total Score: 0 11/02/19 24 1:20 PM PDT documented as of this encounter Care Teams Vp Product Marketing Relationship Specialty Start Date End Date Modesta Kaplan PA [facility] [place] [address] PCP - General Primary Care 02/19/23 documented as of this encounter
[2024-03-11 10:05] LABS: Glucose, Whole Blood 196 mg/dL (60-115)
--- NOTE | 2024-03-11 12:07 | MHC.SHP ---
Pre-Procedural Eval Section A - 24 Hr Update-Section A only Date of Service: 03/11/24 The patient is an INPATIENT: No The patient has been examined within 24 hours of the surgical procedure. The History & Physical has been completed within 30 days and I have reviewed it.: Yes Section B - Complete if H&P > 30 days Chief Complaint: Encounter for sterilization and circumcision Allergies: Allergies Allergy/AdvReac Type Severity Reaction Status Date / Time aspirin Allergy Mild Swelling Verified 03/11/24 09:36 lactose Allergy Mild Unknown Verified 03/11/24 09:36 penicillin G Allergy Mild RASH Verified 03/11/24 09:36 Plan Diagnosis/Plan: Unchanged I have reviewed the history and physical and performed a pertinent physical examination on my patient. No changes have occurred unless specified. Bilateral Vasectomy and Circumcision. Time Spent With Patient Time: Total time managing care of this patient today ____ minutes.
--- NOTE | 2024-03-11 14:27 | P.OP_ITS ---
Operative Note Operative Note Date of Service: 03/11/24 Narrative: Preoperative diagnosis: Anxiety regarding , Recurrent Balanitis Postoperative diagnosis: Anxiety regarding unplanned , Recurrent Balanitis Procedure: Bilateral vasectomy, Circumcision Surgeon: Dr. Mayank York Anesthesia: General Details of procedure:? The patient was brought into the operating room placed on the OR table in supine position.? 2 g of Ancef IV.? General anesthesia was administered.? The patient was prepped and draped in the usual sterile fashion. ? Time-out was done per protocol.? Both vasa were palpated through the skin using a 3 finger technique and at the penoscrotal junction. Starting on the right, the vas was elevated using a 3 finger grasping technique. Using the 15 blade knife an incision was made over the vas followed by a sharp spreading instrument the fascia was spread longitudinally in line with the vasa. The vasa was elevated from the scrotum using a ring clamp. Sharp and blunt dissection was used divide the vasal sheath and to strip the vasal sheath from the vasa. The vasal sheath was dissected from the vas in a proximal and distal fashion. This allowed the blood vessels of the vasa to retract from the vasa. The vasa was grasped with a forcep clamp on both sides and elevated from the incision. The vas was clamped on either side and a segment sent for path. 3.0 vicryl was used to apply a suture tie to the vasa a nd the needle tip cautery was used to cauterize the proximal and caudal end of the vas. Using 4 -0 chromic, the fascia was used to over lay and bury each end of the vas. The similar procedure was repeated on the left side. Both skin incisions were closed with 4-0 chromic. Penile block was performed. With the foreskin over the glans a circumferential incision is made at the level of the hummel. The fore skin was then retracted and a circumferential incision was made 0.5 cm below the hummel. The foreskin is removed with cautery. The skin is closed in 4 quadrants with 4-0 chromic, each quadrant closed with interrupted 4-0 chromic, bacitracin ointment was used over the incision and incision covered with cling. Bacitracin ointment and gauze was applied. The patient tolerated the procedure well. He was brought out of anesthesia. He understands the need to continue to use control methods. A semen sample should be brought for inspection under the microscope in 12 weeks. The patient tolerated the procedure well and was transferred to the recovery area upon completion. Complications: None Drains: none
== END 2024-03-11 16:05 | disposition home or self-care (01) ==
PROVIDERS: PCP Student in an Organized Health Care Education/Training Program; Visit Provider Urology
PROC: (CPT 54161; principal; 2024-03-11 10:50)
PROC: (CPT 55250; 2024-03-11 10:50)
DX: N48.1 Balanitis (principal); Z30.2 Encounter for sterilization; F41.9 Anxiety disorder, unspecified; I10 Essential (primary) hypertension; E11.9 Type 2 diabetes mellitus without complications; E78.00 Pure hypercholesterolemia, unspecified; F43.10 Post-traumatic stress disorder, unspecified; F99 Mental disorder, not otherwise specified; R45.89 Other symptoms and signs involving emotional state; E66.811 Obesity, class 1; Z79.84 Long term (current) use of oral hypoglycemic drugs; Z79.899 Other long term (current) drug therapy; Z88.0 Allergy status to penicillin; Z88.6 Allergy status to analgesic agent
CPT/HCPCS: 54161; 55250; 82947; 88302; 88304; J0690; J2003; J2250; J2405; J2704; J2795; J3010

== ENCOUNTER → 2024-03-11 09:22 | Outpatient (BNV) | payer MEDICAID, SELFPAY | PROVIDERS: PCP Student in an Organized Health Care Education/Training Program; Visit Provider Urology | DX: Z30.2 Encounter for sterilization (principal); N48.1 Balanitis | CPT/HCPCS: 54161; 55250 ==

== ENCOUNTER 2024-04-10 15:16 | Outpatient (AMB) | payer MEDICAID, SELFPAY ==
--- NOTE | 2024-04-10 15:34 | MHC.OFFVIS ---
Intake Visit Reasons: Circumcision/Vascetomy - follow up Intake Note: Patient is present for post op Circumcision/Vascetomy Urology Meds: none Antibiotic Allergies: PCN Blood Thinners: no Property Insurance Agent Required: No Accompanied by: Self / Same As Patient Allergies aspirin Allergy (Mild, Verified 04/10/24 15:42) Swelling lactose Allergy (Mild, Verified 04/10/24 15:42) Unknown penicillin G Allergy (Mild, Verified 04/10/24 15:42) RASH HPI Comments Details: 04/10/24-- Luis is a 38-year-old male presenting with postoperative status following circumcision and vasectomy conducted on 03/11/24. The pathology of the foreskin showed dermal fibrosis and chronic inflammation, which are common findings. There is no presence of abnormal or atypical cells, eliminating the concern for malignancy. Postoperative reports include resolving absorbable sutures and the presence of a sperm granuloma. The patient is aware of the benign nature of these findings. Results - Pathology: Foreskin shows dermal fibrosis and chronic inflammation. No atypical cells found. 01/07/2024--Luis is a 38-year-old gentleman past medical history PTSD, diabetes, here for evaluation due to recurrent balanitis. He was treated by his primary with an antifungal cream which helped. On exam foreskin with mild erythema able to be retracted without difficulty. 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 He states he is also interested in vasectomy. He states that he is and has 1 child. Vasectomy procedure was discussed at length with the patient. He was informed that vasectomy is a safe, permanent, and effective form of control but there are risks involved. It may involve risk of hematoma, procedure failure which is rare, sperm granuloma which may cause mild pain, and congestion which may cause sense of pressure and generally resolves after several weeks. Also discussed is the reported post vasectomy pain syndrome with chronic testicular pain which is uncommon <5% The patient was advised that it is necessary to use other types of control methods for > 12 weeks and until we send semen for analysis to make sure there is no more sperm in the semen. [facility]LY [facility] Medical History Psychiatric illness Post traumatic stress disorder (PTSD) Injury Hypercholesteremia HTN (hypertension) Diabetes Class 1 obesity in adult Surgical History Hx of reconstruction of anterior cruciate ligament tear Social History Patient Tobacco Use Status: Never used Tobacco Review of Systems Const All systems reviewed & are unremarkable except as noted in HPI and below Reports no additional complaints Eyes Reports no additional complaints ENT Reports no additional complaints Card Reports no additional complaints Resp Reports no additional complaints GI Reports no additional complaints Reports as per HPI Musc Reports no additional complaints Skin/Breast Reports system reviewed and no additional complaints, except as documented Neuro Reports no additional complaints Psych Reports no additional complaints Endo Reports no additional complaints Tim/Lymph Reports no additional complaints Aller/Immun Reports no additional complaints Results Reviewed Results Reviewed: Collected: 03/11/24 Location: [facility] Received: 03/11/24 Diagnosis A. Vas deferens, left, vasectomy: Vas deferens within normal limits. B. Vas deferens, right, vasectomy: Vas deferens within normal limits. C. Foreskin, excision: Spongiotic skin with dermal fibrosis and chronic inflammation. Clinical History Pre-Op Dx: Encounter for sterilization and circumcision Post-Op Dx: Encounter for sterilization and balanitis Microscopic Description A-C. Microscopic sections reviewed. Material Received A. Left vas B. Right vas C. Foreskin Gross Description Received in three parts. Part A: Received in formalin labeled ?left side vas? is a 0.4 cm in length and 0.25 cm in diameter rubbery, odonnell pink segment of vas deferens with a central pinpoint lumen, submitted in toto in a cassette labeled A. Part B: Received in formalin labeled ?right side vas? is a 0.35 cm in length and 0.25 cm in diameter rubbery, odonnell-white segment of vas deferens with a central pinpoint lumen, submitted in toto in a cassette labeled B. Part C: Received in formalin labeled ?foreskin? is a 6.5 x 4.5 x 0.45 cm butterfly-shaped portion of wrinkled odonnell-pink and odonnell-brown foreskin. No superficial lesions are identified. Sectioning reveals edematous odonnell-pink cut surfaces. Professor Of Business sections are submitted a cassette labeled C1. CEDS Assessment & Plan Assessment & Plan (1) Diabetes: Code(s): E11.9 - Type 2 diabetes mellitus without complications Category: Medical (2) Balanitis: Code(s): N48.1 - Balanitis Category: Medical (3) Anxiety about health: Code(s): R45.89 - Other symptoms and signs involving emotional state Category: Medical (4) Status post vasectomy: Code(s): Z98.52 - Vasectomy status Category: Medical Plan Discussion Notes I discussed the pathological findings with the patient, emphasizing that the foreskin showed dermal fibrosis and chronic inflammation but no atypical cells were present, which is reassuring in preventing malignancy risk. I explained the benign nature of the sperm granuloma post-vasectomy. The patient was informed about the need to continue contraception until a semen analysis is confirmed in two months. I offered reassurance regarding the dissolving nature of absorbable sutures and reviewed the postoperative care plan thoroughly. Patient Instructions - Continue using contraception until vasectomy success is confirmed with a semen analysis. - Schedule a follow-up appointment in two months. - Return with a semen sample at the next appointment for analysis. - Monitor the healing process; the absorbable sutures should dissolve within six to eight weeks. - Report any symptoms or concerns during recovery. Patient Instructions: The patient had an opportunity to ask questions regarding treatment plan. The patient expressed understanding and agreement with the above treatment plan. The patient is aware they should contact our office by phone for worsening of their current condition or the appearance of new symptoms. Compliance is encouraged with any medications and followup testing that is ordered. It is a privilege to be allowed the opportunity to participate in the urologic care of your patient. If you have any questions or concerns regarding treatment for the above conditions please do not hesitate to contact me. The office telephone contact is [phone]. This note is constructed in part using voice recognition software. While every effort has been made to ensure accuracy maintenance and operations supervisor errors may have been included. Yours sincerely, Mayank York MD Scribe Plan - Not visible on output: Patient was informed and verbally consented to the use of an ambient scribe for clinic note documentation during this visit. Coding Level of Care Code Est Pt Level 3 (39908) Diagnoses Diabetes E11.9 Balanitis N48.1 Anxiety about health R45.89 Status post vasectomy Z98.52
--- OUTSIDE RECORDS SUMMARY | 2024-04-10 18:36 | XMS_ITS | Encounter Summary ---
Author Organization [facility] Address [address] [place] [address] Care Team Providers Care [employer] Feeder Name Role Phone Modesta Kaplan Primary Care Provider [phone] Reason for Visit * Reason Comments Individual Counseling Encounter Details Date Type Department Care Team (Latest Contact Info) Description 03/27/2024 2:45 PM EST / Visits [address] [phone] Mihir Hennessy LCSW [address] [place] [address] Posttraumatic stress disorder (Primary Dx); Moderate episode [...] Care Team (Late st Contact Info) Description 04/24/2024 1:00 PM EDT / Visits [facility] [address] [place] [phone] Mihir Hennessy LCSW [address] [place] [phone] 05/01/2024 1:40 PM EDT Office Visit [address] [phone] Mark Ordonez MD [address] [place] [address] 09/04/2024 1:00 PM EDT Office Visit [facility] [address] [place] [phone] Damaris Marks [address] [place] [phone] documented as of this encounter Visit Diagnoses Diagnosis Posttraumatic stress disorder- Primary Moderate episode of recurrent major depressive disorder (HCC-CMS) documented in this encounter Additional Health Concerns Assessment Noted Time PHQ-9 Depression Total Score: 0 11/02/19 24 1:20 PM PDT documented as of this encounter Care Teams [employer] Fe[employer] Relationship Specialty Start Date End Date Modesta Kaplan PA [address] [place] [phone] PCP - General Primary Care 02/19/23 documented as of this encounter
--- OUTSIDE RECORDS SUMMARY | 2024-04-10 18:36 | XMS_ITS | Clinical Summary ---
Author Organization [facility] Address [address] [place] [address] Care Team Providers Care Telephone Operator Name Role Phone Modesta Kaplan Primary Care Provider [phone] Source Comments PLEASE NOTE, if this patient [...] anxiety 90 Tablet 3 08/09/19 24 Active SITagliptin phosphate (JANUVIA) 100 mg [...] s:Medication refill,Diabetes mellitus type 2 in nonobese (HCC-CMS),Dyslip idemia TAKE 1 TABLET BY MOUTH DAILY 90 Tablet 1 11/25/19 24 Active blood sugar diagnostic stripsIndication s:Type 2 diabetes mellitus with hyperglycemia, without long-term current use of insulin ([facility]) Use to check BG 1x/d DX E11.9 Freestyle Lite 100 Each 11 12/03/19 24 Active lancets (FREESTYLE LANCETS) 28 gaugeIndications :Type 2 diabetes mellitus with hyperglycemia, without long-term current use of insulin ([facility]) Use to check BG 1x/d DX E11.9 Freestyle Lancets 100 Each 11 12/03/19 24 Active empagliflozin (JARDIANCE) 25 mg tabIndications:M edication refill,Diabetes mellitus type 2 in nonobese ([facility]) Take 1 Tablet by mouth once daily 90 Tablet 1 01/16/20 24 Active lisinopriL-hydro chlorothiazide 20-12.5 mg per tabletIndication s:Medication refill,Essential hypertension,Laney betes mellitus type 2 in nonobese ([facility]) TAKE 1 TABLET BY MOUTH DAILY 90 Tablet 03/05/19 25 Active metFORMIN (GLUCOPHAGE) 1,000 mg tabletIndication s:Medication refill,Diabetes mellitus type 2 in nonobese ([facility]) TAKE 1 TABLET BY MOUTH TWICE DAILY WITH A MEAL 180 Tablet 03/18/19 25 Active metFORMIN (GLUCOPHAGE) 1,000 mg tabletIndication s:Medication refill,Diabetes mellitus type 2 in nonobese ([facility]) Take 1 Tablet by mouth 2 (two) times daily with a meal 180 Tablet 09/14/19 24 025 Discontinued Active Problems Problem Noted Date Diagnosed Date Tachycardia 06/18/2023 Right knee injury 03/19/20232022 Overview (03/19/2023): Injured in 2022. Seeing [facility] ortho and sports medicine. MRI of knee shows ACL proximal acute completed tear, mcl sprain, and further injuries. Seeing PT at the moment and will have surgery in the future. 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 07/22/2016 Overview (07/22/2016): As per notes from [facility] - Exam date 06/22/16 Other disorders of optic ner ve, not elsewhere classified, bilateral 07/22/2016 Overview (07/22/2016): As per notes from [facility] - Exam date 06/22/16 Myopia of both eyes with regular astigmatism 11/2016 Overview (07/22/2016): As per notes from [facility] - Exam date 06/22/16 Diabetes mellitus type 2 in nonobese ([facility]) 0 07/22/2016 Overview (07/22/2016): Lab Results Component Value Date HGBA1C 7.1 (H) 05/01/2016 HTN (hypertension) Hypercholesterolemia Resolved Problems Problem Noted Date Diagnosed Date Resolved Date Class 1 obesity in adult 08/29/202112/2023 Encounters Date Type Department Care Team Description 03/27/2024 2:45 PM EST BH/MH Visits [address] [phone] Mihir Hennessy LCSW Posttraumatic stress disorder (Primary Dx); Moderate episode of recurrent major depressive disorder ([facility]) 03/05/2024 10:20 AM EST Office Visit [facility] [address] [place] [phone] Damaris Marks Encounter for dental examination (Primary Dx) 03/05/2024 Travel 02/28/2024 2:00 PM EST BH/MH Visits [address] [phone] Mihir Hennessy LCSW Posttraumatic stress disorder (Primary Dx); Moderate episode of recurrent major depressive disorder ([facility]) 02/28/2024 Travel 02/01/2024 1:20 PM EST Office Visit [address] [phone] Genoveva Ramirez NP Primary hypertension (Primary Dx); Diabetes mellitus type 2 in nonobese ([facility]) 02/01/2024 Travel from Last 3 Months Immunizations [...] Orientation Straight 01/03/2017 6: 27 AM PST Last Filed Vital Signs Vital Sign Reading [...] / Visits [facility] [address] [place] [phone] Mihir Hennessy LCSW [address] [place] [address] 05/01/2024 1:40 PM EDT Office Visit [address] [phone] Mark Ordonez MD [address] [place] [address] 09/04/2024 1:00 PM EDT Office Visit [address] [phone] Damaris Marks [address] [place] [phone] Health Maintenance Due Date Last Done Comments Dental FMX/Pano 1984 Retinopathy Screening 1997 [id number] ( season) 2023 03/19/2023, 11/23/2020, 02/20/2020, Additional [...] hyperglycemia, without long-term current use of insulin ([facility]) HIV 1/2 AG & AB W/RFLX (4TH GEN) Routine 11/08/2023 9:48 AM EDT Foreskin fissure COMPREHENSIVE METABOLIC PANEL Routine 11/08/2023 9:48 AM EDT Diabetes mellitus type 2 in nonobese ([facility]) Primary hypertension LIPIDS W RFLX TO DIRECT LDL Routine 11/08/2023 9:48 AM EDT Diabetes mellitus type 2 in nonobese ([facility]) Hypercholesterolemia MICROALBUMIN/CREATINI NE RATIO, URINE, RANDOM Routine 11/08/2023 9:48 AM EDT Diabetes mellitus type 2 in nonobese ([facility]) REFERRAL TO PODIATRY Routine 04/20/2021 3:00 AM EST Diabetes mellitus type 2 in nonobese ([facility]) [place] of foot HEPATITIS C AB W/RFLX HCV RNA, QT, RT PCR Routine 03/30/2021 11:11 AM EST Screening for viral disease from Last 3 Months or Most Recently Relevant to Health Maintenance Results * (ABNORMAL) GLYCOSYLATED (A1C) DEVICE (CLIA WAIVED) POCT (12/03/2023 9:13 AM EDT) HGB A1C 7.5(A) 4.2 - 6.5 % [facility] OFF[facility] POCT Capillary Blood Blood / Unknown 9:13 AM EDT Elgin Tinajero PharmD LAB - BLOOD D RAW Final Result [facility] POCT * HIV 1/2 AG & AB W/RFLX (4TH GEN) (11/08/2023 9:48 AM EDT) HIV AG/AB, 4TH GEN NON-REAC TIVE NON-REAC TIVE [facility] Comment: HIV-1 antigen and HIV-1/HIV-2 antibodies were [...] ?? For additional information please refer to http://[employer]/faq/MXR949 (This link is being provided for informational/ educational purposes only.) The performance of this assay has not been clinically validated in patients less than 2 years old. Blood Blood / Unknown 11/08/2023 9 :48 AM EDT 11/08/2023 9:49 AM EDT Narrative [facility] - 11/09/2023 3:38 PM EDT FASTING:YES Ronny Martinez [facility] LAB - BLOOD DRAW Final Resul t [facility] [address] [place] [address], [facility] [address] [phone] * (ABNORMAL) LIPIDS W RFLX TO DIRECT LDL (11/08/2023 9:48 AM EDT) CHOLESTEROL, TOTAL 145 <200 mg/dL [facility] HDL CHOLESTEROL 36(L) > OR = 40 mg/dL [facility] TRIGLYCERIDES 276(H) <150 mg/dL Res[facility] Comment: If a non-fasting specimen was collected, consider repeat triglyceride testing on a fasting specimen if clinically indicated. Jill et al. J. of Clin. Lipidol. 2015;9:129-169. LDL-CHOLESTEROL 73 99 mg/dL (calc) [facility] Comment: Reference range: <100 Desirable range <100 mg/dL for primary prevention; ?? <70 mg/dL for patients with CHD or diabetic patients with > or = 2 CHD risk factors. LDL-C is now calculated using the Long calculation, which is a validated novel method providing better accuracy than the Friedewald equation in the estimation of LDL-C. Mitchel CAMPBELL et al. LISA. 2013;310(19): 2244-8395 (http://education.Avidbots/faq/RHF134) CHOL/HDLC RATIO 4.0 <5.0 (calc) [facility] NON-HDL CHOLESTEROL 109 <130 mg/dL (calc) [facility] Comment: For patients with diabetes plus 1 major ASCVD risk factor, treating to a non-HDL-C goal of <100 mg/dL (LDL-C of <70 mg/dL) is considered a therapeutic option. Blood Blood / Unknown 11/08/2023 9 :48 AM EDT 11/08/2023 9:49 AM EDT Narrative [facility] - 11/09/2023 3:38 PM EDT FASTING:YES [employer] [facility] LAB - BLOOD DRAW Final Resul t Performing Organization Address [facility] de Phone Number [employer] [address] [address], [employer] [address] [address] * MICROALBUMIN/CREATININE RATIO, URINE, RANDOM (11/08/2023 9:48 AM EDT) Pathologist [facility] [place] CREATININE, RANDOM URINE 84 20 - 320 mg/dL [employer] [facility] MICROALBUMIN 0.7 mg/dL [employer] Comment: Reference Range Not established MICROALBUMIN/CREA TININE RATIO, RANDOM URINE 8 <30 mg/g creat [facility] Comment: The ADA defines abnormalities in albumin [...] AM EDT 11/08/2023 9:49 AM EDT Narrative [employer] [facility] - 11/09/2023 3:38 PM EDT FASTING:YES [employer] [facility] - NO BLOOD DRAW Final Re sult Performing Organization Address [facility] Co de Phone Number [employer] [facility] [address] [address], [employer] [facility] [address] [place] [address] * (ABNORMAL) COMPREHENSIVE METABOLIC PANEL (11/08/2023 9:48 AM EDT) GLUCOSE 131(H) 65 - 99 mg/dL [facility] Comment: ?Fasting reference interval For someone without known diabetes, a glucose value >125 mg/dL indicates that they may have diabetes and this should be confirmed with a follow-up test. UREA NITROGEN (BUN) 18 7 - 25 mg/dL [facility] CREATININE (blood) 1.01 0.60 - 1.26 mg/dL [facility] EGFR 97 > OR = 60 mL/min/1. 73m2 [employer] BUN/CREATININE RATIO SEE NOTE: [facility] Comment: ?? Not Reported: BUN and Creatinine are within ?? reference range. ? SODIUM 134(L) 135 - 146 mmol/L [employer] [facility] POTASSIUM 4.7 3.5 - 5.3 mmol/L [employer] [facility] CHLORIDE 98 98 - 110 mmol/L [employer] [facility] CARBON DIOXIDE 26 20 - 32 mmol/L [employer] [facility] CALCIUM 10.0 8.6 - 10.3 mg/dL [employer] [facility] PROTEIN, TOTAL 7.4 6.1 - 8.1 g/dL [employer] [facility] ALBUMIN 4.5 3.6 - 5.1 g/dL [employer] [facility] GLOBULIN 2.9 1.9 - 3.7 g/dL (calc) [employer] [facility] ALBUMIN/GLOBULI N RATIO 1.6 1.0 - 2.5 (calc) [employer] [facility] BILIRUBIN, TOTAL 0.9 0.2 - 1.2 mg/dL [employer] [facility] ALKALINE PHOSPHATASE 75 36 - 130 U/L [employer] [facility] AST 18 10 - 40 U/L [employer] [facility] ALT 42 9 - 46 U/L [employer] [facility] Blood Blood / Unknown 11/08/2023 9 :48 AM EDT 11/08/2023 9:49 AM EDT Narrative [employer] [facility] - 11/09/2023 3:38 PM EDT FASTING:YES Ronny Michelle [facility] LAB - BLOOD DRAW Edited Resu lt - Final [facility] [place] [address] [address], [facility] [address] [place] [address] * REFERRAL TO PODIATRY (04/20/2021 3:00 AM EST) 04/20/2021 3:00 AM EST Marietta Ahujaadia [facility] FACILITATOR-C REFERRAL Edited Resul t - Final * HEPATITIS C AB W/RFLX HCV RNA, QT, RT PCR (03/30/2021 11:11 AM EST) HEPATITIS C ANTIBODY NON-REACT YONG NON-REACT YONG [facility] SIGNAL TO CUT-OFF 0.01 <1.00 [facility] Comment: HCV antibody was non-reactive. There is no laboratory evidence of HCV infection. In most cases, no further action is required. However, if recent HCV exposure is suspected, a test for HCV RNA (test code 13280) is suggested. For additional information please refer to http://education.[employer] D[employer]/faq/UJA76h3 (This link is being provided for informational/ educational purposes only.) Blood Blood / Unknown 03/30/2021 1 1:11 AM EST 03/30/2021 11:12 AM EST Narrative [email or web address] - 03/30/2021 10:24 PM EST FASTING:YES Marietta Annabel [facility] FACILIT[facility]-C LAB - BLOOD DRAW Final Resul t [facility] [place] [address] [address], [facility] [address] [address] from Last 3 Months or Most Recently Relevant to Health Maintenance [place] [facility] [address] [employer] Care Teams Telephone Operator Relationship Specialty Start Date End Date Modesta Kaplan PA [address] [place] [address] PCP - General Primary Care 02/19/23
== END 2024-04-10 16:01 | disposition home or self-care (01) ==
PROVIDERS: PCP Student in an Organized Health Care Education/Training Program; Visit Provider Urology
DX: E11.9 Type 2 diabetes mellitus without complications (principal); N48.1 Balanitis; R45.89 Other symptoms and signs involving emotional state; Z98.52 Vasectomy status
CPT/HCPCS: 99024

== ENCOUNTER → 2024-04-10 15:16 | Outpatient (BNVA) | payer MEDICAID, SELFPAY | PROVIDERS: PCP Student in an Organized Health Care Education/Training Program; Visit Provider Urology | DX: N48.1 Balanitis (principal); R45.89 Other symptoms and signs involving emotional state; E11.9 Type 2 diabetes mellitus without complications; Z98.52 Vasectomy status | CPT/HCPCS: 99212 ==

== ENCOUNTER 2024-06-24 10:57 | Outpatient (AMB) | payer MEDICAID, SELFPAY ==
--- NOTE | 2024-06-24 11:41 | A.OFFVIS_ITS ---
Intake Visit Reasons: Vasectomy- follow up Intake Note: Patient is present for vasectomy follow up Urology Meds:none Antibiotic Allergies: PCN Blood Thinners:none Information And Data Architect Analyst Required: No Accompanied by: Self / Same As Patient Allergies aspirin Allergy (Mild, Verified 06/24/24 11:42) Swelling lactose Allergy (Mild, Verified 06/24/24 11:42) Unknown penicillin G Allergy (Mild, Verified 06/24/24 11:42) RASH HPI Comments Details: 06/24/2024--Luis is a 39-year-old male who is status post circumcision and bilateral vasectomy on 03/11/2024. He has brought his semen in 4 evaluation under the microscope. Microscopic evaluation there is no sperm noted in the semen on today's evaluation. The patient states that he is doing well no scrotal swelling no scrotal or testicular pain he states that the circumcision incision is healed and no issue is related to the procedures. He denies family history of prostate cancer. Discussed PSA screening may start between age 45 and 50. He is advised to follow-up on a p.r.n. basis. 04/10/24--Luis is a 38-year-old male presenting with postoperative status following circumcision and vasectomy conducted on 03/11/24. The pathology of the foreskin showed dermal fibrosis and chronic inflammation, which are common findings. There is no presence of abnormal or atypical cells, eliminating the concern for malignancy. Postoperative reports include resolving absorbable sutures and the presence of a sperm granuloma. The patient is aware of the benign nature of these findings. Results - Pathology: Foreskin shows dermal fibrosis and chronic inflammation. No atypical cells found. 01/07/2024--Luis is a 38-year-old gentleman past medical history PTSD, diabetes, here for evaluation due to recurrent balanitis. He was treated by his primary with an antifungal cream which helped. On exam foreskin with mild erythema able to be retracted without difficulty. 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 He states he is also interested in vasectomy. He states that he is and has 1 child. Vasectomy procedure was discussed at length with the patient. He was informed that vasectomy is a safe, permanent, and effective form of control but there are risks involved. It may involve risk of hematoma, procedure failure which is rare, sperm granuloma which may cause mild pain, and congestion which may cause sense of pressure and generally resolves after several weeks. Also discussed is the reported post vasectomy pain syndrome with chronic testicular pain which is uncommon <5% The patient was advised that it is necessary to use other types of control methods for > 12 weeks and until we send semen for analysis to make sure there is no more sperm in the semen. [facility] Medical History Psychiatric illness Post traumatic stress disorder (PTSD) Injury Hypercholesteremia HTN (hypertension) Diabetes Class 1 obesity in adult Surgical History Hx of reconstruction of anterior cruciate ligament tear Social History Patient Tobacco Use Status: Never used Tobacco Review of Systems Const All systems reviewed & are unremarkable except as noted in HPI and below Reports no additional complaints Eyes Reports no additional complaints ENT Reports no additional complaints Card Reports no additional complaints Resp Reports no additional complaints GI Reports no additional complaints Reports as per HPI Musc Reports no additional complaints Skin/Breast Reports system reviewed and no additional complaints, except as documented Neuro Reports no additional complaints Psych Reports no additional complaints Endo Reports no additional complaints Tim/Lymph Reports no additional complaints Aller/Immun Reports no additional complaints Assessment & Plan Assessment & Plan (1) Diabetes: Code(s): E11.9 - Type 2 diabetes mellitus without complications Category: Medical (2) Balanitis: Code(s): N48.1 - Balanitis Category: Medical (3) Anxiety about health: Code(s): R45.89 - Other symptoms and signs involving emotional state Category: Medical (4) Status post vasectomy: Code(s): Z98.52 - Vasectomy status Category: Surgical Plan Semen analyses under the microscope no sperm visualized. Follow-up PRN Patient Instructions: The patient had an opportunity to ask questions regarding treatment plan. The patient expressed understanding and agreement with the above treatment plan. The patient is aware they should contact our office by phone for worsening of their current condition or the appearance of new symptoms. Compliance is encouraged with any medications and followup testing that is ordered. It is a privilege to be allowed the opportunity to participate in the urologic care of your patient. If you have any questions or concerns regarding treatment for the above conditions please do not hesitate to contact me. The office telephone contact is [phone]. This note is constructed in part using voice recognition software. While every effort has been made to ensure accuracy solar energy systems designer errors may have been included. Yours sincerely, Mayank York MD Scribe Plan - Not visible on output: Patient was informed and verbally consented to the use of an ambient scribe for clinic note documentation during this visit. Coding Level of Care Code Est Pt Level 3 (26596) Diagnoses Diabetes E11.9 Balanitis N48.1 Anxiety about health R45.89 Status post vasectomy Z98.52
--- OUTSIDE RECORDS SUMMARY | 2024-06-24 12:25 | XMS_ITS | Encounter Summary ---
Author Organization [facility] Address [address] [place] [phone] Care Team Providers Care Chemical Production Technician Name Role Phone Modesta Kaplan Primary Care Pr ovider Encounter Details Date Type Department Care Team (Late st Contact Info) Description 06/18/2024 Telephone [facility] Cardiology [facility] [address] [place] [phone] Modesta Kaplan PA [address] [place] [address] Social History Tobacco Use Types Packs/Day Years Used Date Smoking Tobacco: Never Assessed Sex and Gender Information Value Date Recorded Sex Assigned at Not on file Legal Sex Male 11:06 AM EDT Gender Identity Not on file Sexual Orientation Not on file documented as of this encounter Plan of Treatment Not on file documented as of this encounter Visit Diagnoses Not on filedocumented in this encounter Care Teams Chemical Production Technician Relationship Specialty Start Date End Date Modesta Kaplan PA [address] [place] [phone] PCP - General 06/20/23 documented as of this encounter
--- OUTSIDE RECORDS SUMMARY | 2024-06-24 12:25 | XMS_ITS | Clinical Summary ---
Author Organization [facility] [[email or web address] Address [address] [place] [address] Care Team Providers Care Spring Tacker Name Role Phone Modesta Kaplan Primary Care Pr ovider Encounters Date Type Department Care Team Description 06/18/2024 Telephone [facility] Cardiology [facility] [address] [place] [address] Modesta Kaplan PA 06/18/2024 Telephone [facility] [address] [place] [address] Modesta Kaplan PA from Last 3 Months Social History Tobacco Use Types Packs/Day Years Used Date Smoking Tobacco: Never Assessed Sex and Gender Information Value Date Recorded Sex Assigned at Not on file Legal Sex Male 11:06 AM EDT Gender Identity Not on file Sexual Orientation Not on file Plan of Treatment Health Maintenance Due Date Last Done Comments DTaP,Tdap,and Td Vaccines (1 - Tdap) 06/13/2003 Hepatitis B Vaccines (1 of 3 - 19+ 3-dose series) 06/13/2003 Cholesterol Screening (Lipid Panel) 09/07/2023 Depression Screening 09/07/2023 HIV Screening 09/07/2023 Hepatitis C Screening 09/07/2023 Social Influencers of Health Screening 09/07/2023 COVID-19 Vaccine (2023-2 5 season) 2023 Influenza Vaccine (Season Ended) 2024 HIB Vaccines Aged Out No longer eligi ble based on patient's age to complete this topic HPV Vaccines Aged Out No longer eligi ble based on patient's age to complete this topic Hepatitis A Vaccines Aged Out No long er eligible based on patient's age to complete this topic IPV Vaccines Aged Out No longer eligi ble based on patient's age to complete this topic MMR Vaccines Aged Out No longer eligi ble based on patient's age to complete this topic Meningococcal ACWY Vaccine Aged Out N o longer eligible based on patient's age to complete this topic Meningococcal B Vaccine Aged Out No l onger eligible based on patient's age to complete this topic Pneumococcal Vaccine: Pediat rics (0 to 5 Years) and At-Risk Patients (6 to 64 Years) Aged Out No longer eligible b ased on patient's age to complete this topic RSV Immunization Patients Un mega 20 months Aged Out No longer eligible b ased on patient's age to complete this topic Varicella Vaccines Aged Out No longer eligible based on patient's age to complete this topic Care Teams Spring Tacker Relationship Specialty Start Date End Date Modesta Kaplan PA [address] [place] [address] PCP - General 06/20/23
--- OUTSIDE RECORDS SUMMARY | 2024-06-24 12:25 | XMS_ITS | Clinical Summary ---
Author Organization [facility] Address [address] [place] [address] Care Team Providers Care Wheat Farmer Name Role Phone Modesta Kaplan Primary Care Provider [phone] Source Comments PLEASE NOTE, if this patient [...] 1 Each 02/01/20 17 Active blood pressure monitorIndicati ons:Primary hypertension Lifetime need 1 Kit 08/27/19 22 Active hydrOXYzine HCL (ATARAX) 25 mg tabletIndicatio ns:Insomnia, unspecified type Take 1 Tablet by mouth 3 (three) times daily as needed for sleep or anxiety 90 Tablet 3 08/09/19 24 Active melatonin 5 mg tabIndications: Insomnia, unspecified type Take 2 Tablets by mouth nightly at bedtime for 90 days 60 Tablet 2 11/04/19 24 Active blood sugar diagnostic stripsIndicatio ns:Type 2 diabetes mellitus with hyperglycemia, without long-term current use of insulin ([facility]) Use to check BG 1x/d DX E11.9 Freestyle Lite 100 Each 11 12/03/19 24 Active lancets (FREESTYLE LANCETS) 28 gaugeIndication s:Type 2 diabetes mellitus with hyperglycemia, without long-term current use of insulin ([facility]) Use to check BG 1x/d DX E11.9 Freestyle Lancets 100 Each 11 12/03/19 24 Active empagliflozin (JARDIANCE) 25 mg tabIndications: Medication refill,Diabetes mellitus type 2 in nonobese ([facility]) Take 1 Tablet by mouth once daily 90 Tablet 1 01/16/20 24 Active atorvastatin (LIPITOR) 20 mg tabletIndicatio ns:Medication refill,Diabetes mellitus type 2 in nonobese ([facility]),Dysli pidemia TAKE 1 TABLET BY MOUTH DAILY 90 Tablet 1 05/22/19 25 Active metFORMIN (GLUCOPHAGE) 1,000 mg tabletIndicatio ns:Medication refill,Diabetes mellitus type 2 in nonobese ([facility]) TAKE 1 TABLET BY MOUTH TWICE DAILY WITH A MEAL 180 Tablet 06/12/19 25 Active lisinopriL-hydr ochlorothiazide 20-12.5 mg per tabletIndicatio ns:Medication refill,Essentia l hypertension,Di abetes mellitus type 2 in nonobese ([facility]) TAKE 1 TABLET BY MOUTH DAILY 90 Tablet 06/15/19 25 Active SITagliptin phosphate (JANUVIA) 100 mg tabletIndicatio ns:Diabetes mellitus type 2 in nonobese ([facility]) Take 1 Tablet by mouth every morning 90 Tablet 1 06/19/19 25 Active SITagliptin phosphate (JANUVIA) 100 mg tabletIndicatio ns:Diabetes mellitus type 2 in nonobese ([facility]) Take 1 Tablet by mouth every morning 90 Tablet 1 10/29/19 24 025 Discontinued(Re order (E-Cancel Not Sent)) lisinopriL-hydr ochlorothiazide 20-12.5 mg per tabletIndicatio ns:Medication refill,Essentia l hypertension,Di abetes mellitus type 2 in nonobese ([facility]) TAKE 1 TABLET BY MOUTH DAILY 90 Tablet 03/05/19 25 025 Discontinued metFORMIN (GLUCOPHAGE) 1,000 mg tabletIndicatio ns:Medication refill,Diabetes mellitus type 2 in nonobese ([facility]) TAKE 1 TABLET BY MOUTH TWICE DAILY WITH A MEAL 180 Tablet 03/18/19 25 025 Discontinued clindamycin (CLEOCIN) 300 mg capsuleIndicati ons:Dental infection Take 1 Capsule by mouth 3 (three) times daily for 7 days 21 Capsule 05/28/19 25 025 Active Problems Problem Noted Date Diagnosed Date Tachycardia 06/18/2023 Right knee injury 03/19/20232022 Overview (03/19/2023): Injured in 2022. Seeing [facility] ortho and sports medicine. MRI of knee shows ACL proximal acute completed tear, mcl sprain, and further injuries. Seeing PT at the moment and will have surgery in the future. 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 - Exam date 06/22/16 Other disorders of optic ner ve, not elsewhere classified, bilateral 07/22/2016 Overview (07/22/2016): As per notes from [facility] - Exam date 06/22/16 Myopia of both eyes with regular astigmatism 11/2016 Overview (07/22/2016): As per notes from [facility] - Exam date 06/22/16 Diabetes mellitus type 2 in nonobese ([facility]) 0 07/22/2016 Overview (07/22/2016): Lab Results Component Value Date HGBA1C 7.1 (H) 05/01/2016 HTN (hypertension) Hypercholesterolemia Resolved Problems Problem Noted Date Diagnosed Date Resolved Date Class 1 obesity in adult 08/29/202112/2023 Encounters Date Type Department Care Team Description 05/27/2024 1:00 PM EDT Office Visit [facility] [address] [place] [address] Gayle Chilel DDS Pain, dental (Primary Dx); Dental infection 05/22/2024 1:00 PM EDT / Visits [facility] [address] [place] [address] Mihir Hennessy LCSW Posttraumatic stress disorder (Primary Dx); Moderate episode of recurrent major depressive disorder (HCC-CMS) 05/01/2024 1:40 PM EDT Office Visit [facility] [address] [place] [phone] Mark Ordonez MD Primary hypertension (Primary Dx); Hypercholesterolemia; Diabetes mellitus type 2 in nonobese (HCC-CMS) 04/24/2024 1:00 PM EDT BH/MH Visits [facility] [address] [place] [address] Mihir Hennessy LCSW Posttraumatic stress disorder (Primary Dx); Moderate episode of recurrent major depressive disorder (HCC-CMS) 03/27/2024 2:45 PM EST BH/MH Visits [facility] [address] [place] [address] Mihir Hennessy LCSW Posttraumatic stress disorder (Primary Dx); Moderate episode of recurrent major depressive disorder ([facility]) from Last 3 Months Immunizations Immunization Administration Dates Next Due DTAP (DAPTACEL),5 PERTUSSIS ANTIGENS ,06/04/1989,01/15/1987,06/17,04/01/1986 Flu, Preservative Free 03/19/2023,2020,11/16/2019,12/19,12/14/2017,05/01/2016 HEP B, PED/ADOL 05/07/2000,10/23/1997,09/22/1997 INFLUENZA, SEASONAL, INJECTABLE 11/23/2020 IPV (IPOL) 08/26/1991, 0,01/15/1987,06/17,04/01/1986 Influenza (FLUBLOK),recombinant,injectable,prese rvative Free 11/02/2023 MMR (MMR II/Priorix) 09/22/1997,04/12/1989 Mumps Rubella 04/12/1989 PFIZER COVID VACCINE, PURPLE CAP, 12+ 11/23/2020 ,02/20/2020,01/30/2020 PNEUMOCOCCAL CONJUGATE PCV 13 08/26/2021 PNEUMOCOCCAL POLYSACCHARIDE PPV23 (Pneumovax 23) 04/20/2017 PPD 07/04/2016 Pfizer COVID-19 (Comirnaty), Mrna, Lnp-s, Pf, Crotez-sucrose, 30 Mcg/0.3 Ml, 12yr+ 03/19/2023 TDAP 05/10/2015 [...] Sign Reading Time Taken Comments Blood Pressure 122/70 05/01/2024 1:29 PM EDT Pulse 100 05/01/2024 1:29 PM EDT Temperature 37 ??C (98.6 ??F) 05/01/2024 1:29 PM EDT Respiratory Rate 16 05/01/2024 1:29 PM EDT Oxygen Saturation 97% 05/01/2024 1:29 PM EDT Inhaled Oxygen Concentration - - Weight 78.5 kg (173 lb) 05/01/2024 1:29 PM EDT Height 167.6 cm (5' 6 ) 05/01/2024 1:29 PM EDT Body Mass Index 27.92 05/01/2024 1:29 PM EDT Plan of Treatment Upcoming Encounters Date Type Department Care Team (Late st Contact Info) Description 06/25/2024 1:00 PM EDT / Visits [facility] [phone] [place] [address] Mihir Hennessy CONTRACT OFFICER [address] [place] [address] 07/01/2024 3:00 PM EDT Office Visit [facility] [address] [place] [phone] Brooke Douglass, DMD [address] [place] [address] 09/04/2024 1:00 PM EDT Office Visit [facility] [address] [place] [phone] Damaris Marks [address] [place] [address] Health Maintenance Due Date Last Done Comments Dental FMX/Pano 1984 Retinopathy Screening 1997 Diabetes HbA1c 03/04/2024 12/03/2023, 06/12, 03/19/2023, Additional history exists Annual Preventive Care Visit 03/19/2024 03/19/2023, 10/05/2020, 09/13/2017 Diabetes Foot Exam 03/19/2024 03/19/2023, 0 04/20/2021, 03/23/2021 Depression Monitoring 08/01/2024 05/01/2024 , 11/02/2023, 06/18/2023, Additional history exists [id number] ( season) 2024 03/19/2023, 11/23/2020, 02/20/2020, Additional history exists Postponed from 10/14/2023 (Patient postponement) Dental Prophy 09/04/2024 03/05/2024, 08/12, 02/24/2023, Additional history exists Lipid Screening 11/07/2024 11/08/2023, 03/15, 03/19/2023, Additional history exists Serum Creatinine 11/07/2024 11/08/2023, , 03/19/2023, Additional history exists Urine Albumin Creatinine Ratio Screening 11/07/2024 11/08/2023, 06/29/2023, 10/05/2020, Additional history exists Dental BW 03/07/2025 03/05/2024, 08/12, 02/24/2023, Additional history exists Dental Examination 03/07/2025 03/05/2024, 0 08/31/2023, 02/24/2023, Additional history exists Dental Perio Charting 03/07/2025 03/05/2024 , 02/24/2023, 06/15/2022 Anxiety Screening 05/01/2025 05/01/2024 Tobacco Screening 05/01/2025 05/01/2024 Imm-DTaP/Tdap/Td (7 - Td or Tdap) 06/21/2026 06/21/2016, 05/10/2015, 05/10/2015, Additional history exists Imm-Pneumococcal (3 of 3 - PCV20 or PCV21) 2034 08/26/2021, 04/20/2017 Imm-Hepatitis B Completed 05/07/2000, 10/13, 09/22/1997 Hepatitis C Screening Completed 03/30/2021 Imm-Influenza Completed 11/02/2023, 06/2023, 11/11/2021, Additional history exists HIV Screening Completed 11/08/2023, 09/13, 09/14/2017 Alcohol and Drug Screen Completed 05/02/19, 11/02/2023, 03/19/2023, Additional history exists Procedures Procedure Name Priority Date/Time Associated Diagnosis Comments CASE PRESENTATION SUBS DTL & EXTENSIVE TX PLN Routine 05/27/2024 1:00 PM EDT Pain, dental INTRAORAL - PERIAPICAL FIRST RADIOGRAPHIC IMAGE Routine 05/27/2024 1:00 PM EDT Pain, dental LIMITED ORAL EVALUATION - PROBLEM FOCUSED Routine 05/27/2024 1:00 PM EDT Pain, dental COMP PERIODONTAL EVALUATION - NEW/EST PATIENT Routine 03/05/2024 10:20 AM EST Encounter for dental examination BITEWINGS - FOUR RADIOGRAPHIC IMAGES Routine 03/05/2024 10:20 AM EST Encounter for dental examination PROPHYLAXIS - ADULT Routine 03/05/2024 1 0:20 AM EST Encounter for dental examination PERIODIC ORAL EVALUATION ESTABLISHED PATIENT Routine 03/05/2024 10:20 AM EST Encounter for dental examination GLYCOSYLATED (A1C) DEVICE (CLIA WAIVED) POCT Routine 12/03/2023 9:13 AM EDT Type 2 diabetes mellitus with hyperglycemia, without long-term current use of insulin ([facility]) HIV 1/2 AG & AB W/RFLX (4TH GEN) Routine 11/08/2023 9:48 AM EDT F[place]kin fissure COMPREHENSIVE METABOLIC PANEL Routine 11/08/2023 9:48 AM EDT Diabetes mellitus type 2 in nonobese ([facility]) Primary hypertension LIPIDS W RFLX TO DIRECT LDL Routine 11/08/2023 9:48 AM EDT Diabetes mellitus type 2 in nonobese ([facility]) Hypercholesterolemia MICROALBUMIN/CREATINI NE RATIO, URINE, RANDOM Routine 11/08/2023 9:48 AM EDT Diabetes mellitus type 2 in nonobese ([facility]) REFERRAL TO PODIATRY Routine 04/20/2021 3:00 AM EST Diabetes mellitus type 2 in nonobese ([facility]) [place] of foot HEPATITIS C AB W/RFLX HCV RNA, QT, RT PCR Routine 03/30/2021 11:11 AM EST Screening for viral disease from Last 3 Months or Most Recently Relevant to Health Maintenance Results * (ABNORMAL) GLYCOSYLATED (A1C) DEVICE (CLIA WAIVED) POCT (12/03/2023 9:13 AM EDT) HGB A1C 7.5(A) 4.2 - 6.5 % [facility] POCT Capillary Blood Blood / Unknown 9:13 AM EDT Elgin Tinajero PharmD LAB - BLOOD D RAW Final Result [facility]- BACK OFF[facility] POCT * HIV 1/2 AG & AB W/RFLX (4TH GEN) (11/08/2023 9:48 AM EDT) HIV AG/AB, 4TH GEN NON-REAC TIVE NON-REAC TIVE [facility] Comment: HIV-1 antigen and HIV-1/HIV-2 antibodies [...] ?? For additional information please refer to http://education.EndoSphere.Cswitch/faq/ATA339 (This link is being provided for informational/ educational purposes only.) The performance of this assay has not been clinically validated in patients less than 2 years old. Blood Blood / Unknown 11/08/2023 9 :48 AM EDT 11/08/2023 9:49 AM EDT Narrative [employer] [facility] - 11/09/2023 3:38 PM EDT FASTING:YES Ronny Martinez [facility] LAB - BLOOD DRAW Final Resul t [employer] [address] [address], [employer] [address] [address] * (ABNORMAL) LIPIDS W RFLX TO DIRECT LDL (11/08/2023 9:48 AM EDT) CHOLESTEROL, TOTAL 145 <200 mg/dL [facility] HDL CHOLESTEROL 36(L) > OR = 40 mg/dL [facility] TRIGLYCERIDES 276(H) <150 mg/dL [facility] Comment: If a non-fasting specimen was collected, consider repeat triglyceride testing on a fasting specimen if clinically indicated. Jill et al. J. of Clin. Lipidol. 2015;9:129-169. LDL-CHOLESTEROL 73 99 mg/dL (calc) [facility] Comment: Reference range: <100 Desirable range <100 mg/dL for primary prevention; ?? <70 mg/dL for patients with CHD or diabetic patients with > or = 2 CHD risk factors. LDL-C is now calculated using the Long calculation, which is a validated novel method providing better accuracy than the Friedewald equation in the estimation of LDL-C. Mitchel SS et al. LISA. 2013;310(19): 0230-2969 (http://education.Munchery/faq/ILP103) CHOL/HDLC RATIO 4.0 <5.0 (calc) [facility] NON-HDL CHOLESTEROL 109 <130 mg/dL (calc) [facility] Comment: For patients with diabetes plus 1 major ASCVD risk factor, treating to a non-HDL-C goal of <100 mg/dL (LDL-C of <70 mg/dL) is considered a therapeutic option. Blood Blood / Unknown 11/08/2023 9 :48 AM EDT 11/08/2023 9:49 AM EDT Narrative [facility] - 11/09/2023 3:38 PM EDT FASTING:YES Ronny Martinez [facility] LAB - BLOOD DRAW Final Resul t [facility] [address] [place] [id number], [facility] [address] [place] [phone] * MICROALBUMIN/CREATININE RATIO, URINE, RANDOM (11/08/2023 9:48 AM EDT) CREATININE, RANDOM URINE 84 20 - 320 mg/dL [facility] MICROALBUMIN 0.7 mg/dL [facility] [employer] Comment: Reference Range Not established MICROALBUMIN/CREA TININE RATIO, RANDOM URINE 8 <30 mg/g creat [facility] Comment: The ADA defines abnormalities in albumin [...] AM EDT 11/08/2023 9:49 AM EDT Narrative [facility] - 11/09/2023 3:38 PM EDT FASTING:YES Ronny Martinez [facility] LAB - NO BLOOD DRAW Final Re sult [facility] [address] [place] [phone], [facility] [address] [place] [address] * (ABNORMAL) COMPREHENSIVE METABOLIC PANEL (11/08/2023 9:48 AM EDT) GLUCOSE 131(H) 65 - 99 mg/dL [facility] Comment: ?Fasting reference interval For someone without known diabetes, a glucose value >125 mg/dL indicates that they may have diabetes and this should be confirmed with a follow-up test. UREA NITROGEN (BUN) 18 7 - 25 mg/dL [facility] CREATININE (blood) 1.01 0.60 - 1.26 mg/dL [facility] EGFR 97 > OR = 60 mL/min/1. 73m2 [facility] BUN/CREATININE RATIO SEE NOTE: [facility] Comment: ?? Not Reported: BUN and Creatinine are within ?? reference range. ? SODIUM 134(L) 135 - 146 mmol/L [facility] POTASSIUM 4.7 3.5 - 5.3 mmol/L [facility] CHLORIDE 98 98 - 110 mmol/L [facility] CARBON DIOXIDE 26 20 - 32 mmol/L [facility] CALCIUM 10.0 8.6 - 10.3 mg/dL [facility] PROTEIN, TOTAL 7.4 6.1 - 8.1 g/dL [facility] ALBUMIN 4.5 3.6 - 5.1 g/dL [employer] [place] [employer] GLOBULIN 2.9 1.9 - 3.7 g/dL (calc) [facility] ALBUMIN/GLOBULI N RATIO 1.6 1.0 - 2.5 (calc) [employer] [facility] BILIRUBIN, TOTAL 0.9 0.2 - 1.2 mg/dL [facility] ALKALINE PHOSPHATASE 75 36 - 130 U/L [employer] [facility] AST 18 10 - 40 U/L [employer] [facility] ALT 42 9 - 46 U/L [employer] [facility] Blood Blood / Unknown 11/08/2023 9 :48 AM EDT 11/08/2023 9:49 AM EDT Narrative [employer] [facility] - 11/09/2023 3:38 PM EDT FASTING:YES Ronny Martinez [facility] - BLOOD DRAW Edited Resu lt - Final [employer] [address] [address], [employer] [facility] [address] [address] * REFERRAL TO PODIATRY (04/20/2021 3:00 AM EST) 04/20/2021 3:00 AM EST Marietta Jin [facility]-C REFERRAL Edited Resul t - Final * HEPATITIS C AB W/RFLX HCV RNA, QT, RT PCR (03/30/2021 11:11 AM EST) HEPATITIS C ANTIBODY NON-REACT YONG NON-REACT YONG [facility] SIGNAL TO CUT-OFF 0.01 <1.00 [employer] [facility] Comment: HCV antibody was non-reactive. There is no laboratory evidence of HCV infection. In most cases, no further action is required. However, if recent HCV exposure is suspected, a test for HCV RNA (test code 55812) is suggested. For additional information please refer to http://education.LocalSort/faq/XLA87o3 (This link is being provided for informational/ educational purposes only.) Blood Blood / Unknown 03/30/2021 1 1:11 AM EST 03/30/2021 11:12 AM EST Narrative [facility] - 03/30/2021 10:24 PM EST FASTING:YES Marietta Annabel [facility]-C LAB - BLOOD DRAW Final Resul t [employer] [facility] [address] [address], [employer] [facility] [address] [address] from Last 3 Months or Most Recently Relevant to Health Maintenance Insurance [place] D[place] [facility] Medicaid Address: [address] [place] [address] Care Teams Wheat Farmer Relationship Specialty Start Date End Date Modesta Kaplan PA [address] [place] [address] PCP - General Primary Care 02/19/23
== END 2024-06-24 12:26 | disposition home or self-care (01) ==
LOC: HO.HUSH 10:58
PROVIDERS: PCP Student in an Organized Health Care Education/Training Program; Visit Provider Urology
DX: N48.1 Balanitis (principal); R45.89 Other symptoms and signs involving emotional state; Z98.52 Vasectomy status; E11.9 Type 2 diabetes mellitus without complications
CPT/HCPCS: 99024

== ENCOUNTER → 2024-06-24 10:57 | Outpatient (BNVA) | payer MEDICAID, SELFPAY | PROVIDERS: PCP Student in an Organized Health Care Education/Training Program; Visit Provider Urology | DX: N48.1 Balanitis (principal); E11.9 Type 2 diabetes mellitus without complications; R45.89 Other symptoms and signs involving emotional state; Z98.52 Vasectomy status | CPT/HCPCS: 99212 ==